=== PATIENT | female | born 1935 | race African-American/Black ===

== ENCOUNTER 2017-06-21 12:11 | Inpatient (IN) | payer MEDICARE, MEDICAID ==
[2017-06-21 13:08] LABS: #Monocytes 1.3 thou/uL (0.11-0.59); #Neutrophils 13.7 thou/uL (1.40-6.50); %Basophils 0.1 % (0.0-1.0); %Eosinophils 0.3 % (0.0-10.0); %Lymphocytes 11.7 % (21.0-51.0); %Monocytes 7.4 % (0.0-10.0); Hematocrit 33.8 % (36.0-47.0); Mean Platelet Volume 6.9 fL (7.4-10.4); Red Blood Cell (RBC) Count 3.42 mill/uL (4.20-5.40)
[2017-06-21 13:30] LABS: Lactic Acid - Sepsis 1.8 mmol/L (0.5-2.2)
[2017-06-21 13:34] LABS: Troponin I 0.051 ng/mL (< 0.028)
[2017-06-21 13:35] LABS: ALT (SGPT) 17 U/L (8-55); AST (SGOT) 43 U/L (5-34); Alkaline Phosphatase 129 U/L (40-150); Anion Gap 14 mmol/L (10-20); BUN (Urea Nitrogen) 42 mg/dL (9.8-20.1); Bilirubin, Total 0.8 mg/dL (0.2-1.2); Calc. Creatinine Clearance 0 mL/min (70-130); Calcium 8.9 mg/dL (7.8-10.44); Carbon Dioxide 25 mmol/L (23-31); Chloride 96 mmol/L (98-107); Estimated GFR-MDRD 21; Globulin 5.2 g/dL (2.4-3.5); Protein, Total 7.5 g/dL (6.0-8.3)
--- NOTE | 2017-06-21 13:54 | CT ---
CT BRAIN WITHOUT CONTRAST: History: Pain all over from sores, altered mental status. FINDINGS: No acute intracranial infarct or hemorrhage. No midline shift or mass effect. Ventricular size and e xtraaxial CSF spaces are similar. Moderate atrophy. Old right lacunar infarct extending into the arias radiata also involving the pos terior limb of the adrenal capsule and external capsule. IMPRESSION: 1. No acute intracranial abnormality. No significant change. POS: OFF
[2017-06-21 14:10] LABS: Bilirubin Small (Negative); Blood, Urine Large (Negative); Glucose, Urine (Dipstick) Negative (Negative); Ketone, Urine Negative (Negative); Nitrite Negative (Negative); Protein, Urine (Dipstick) 30 mg/dL (Neg-Trace); Urobilinogen 0.2 mg/dL (0.2-1.0)
[2017-06-21 14:26] LABS: Bacteria/HPF 1+ HPF (None Seen); Hyaline Casts/LPF NONE SEEN LPF (0-3 Hyaline); Yeast-All Forms 1+ HPF (None Seen)
[2017-06-21] MEDS ORDERED: Sodium Chloride 0.9% 100 ML ONE ×2 (14:59→15:27)
[2017-06-21] MEDS ORDERED: cefTRIAXone\\ROCEPHIN 1 GM VIAL ONE (14:59)
[2017-06-21] MEDS ORDERED: Vancomycin HCl 500 MG VIAL ONE (15:25)
[2017-06-21] MEDS ORDERED: Vancomycin HCl 500 MG in Sodium Chloride 0.9% 100 ML IVPB SCH (15:30)
--- NOTE | 2017-06-21 16:46 | RAD ---
PORTABLE AP CHEST: Date: 06-21-17 History: Slurred speech with onset of symptoms one hour prior to arrival. Sepsis. Comparison: 03-01-16, 05-22-17 FINDINGS: Cardiac silhouette is enlarged. Pulmonary vasculature is within normal limits. Pulmonary vascular ca lcifications are seen in the thoracic aorta. There are linear densities at the right lung base which may be related to minimal scarring or atelectasis. Lungs are otherwise clear. Deformity of the left shoulder is again present with proximal humerous displaced medially and superiorly with respect to the glenoid which also demonstrates deformity. There has been no other interval change from the prio r exam. IMPRESSION: 1. No acute cardiopulmonary process. 2. Mild cardiomegaly. POS: [facility]
--- NOTE | 2017-06-21 17:10 | HP ---
PRIMARY CARE PHYSICIAN: City call admission. REASON FOR ADMISSION: Sepsis. HISTORY OF PRESENT ILLNESS: An 81-year-old -[place] female who is bedbound for 40 years who was brought to emergency room by family member for altered mental status. Family member reports th at this morning, the patient was mumbling. She was incoherent. She was not able to talk well and i t was very difficult to understand because of her somnolence and incoherent. She was also constipat ed and she was having diffuse body pain. This patient is not able to provide any focused and good history and family member also does not pro vide any focused and good history, so history is very limited. The patient is hurting everywhere in her body. When they did Cota catheter in the emergency room, patient had pus like urine came out. Routine workup showed sepsis. She was initially tachycardic, hypotensive, and blood test showed leukocytosis with left shift, acute kidney failure, demand ischem ia of myocardium. At this point, the patient is being admitted to the hospital for IV antibiotic therapy. This patient was recently admitted in our hospital on 05/22/2017 and patient was discharged to home on 05/24/2017. At that time, she was treated for sepsis and she had cellulitis and wound over abdom inal wall which was growing Pseudomonas. REVIEW OF SYSTEMS: The following complete review of systems was negative, unless otherwise mentione d in the HPI or below: Constitutional: Weight loss or gain, ability to conduct usual activities. Skin: Rash, itching. Eyes: Double vision, pain. ENT/Mouth: Nose bleeding, neck stiffness, pain, tenderness. Cardiovascular: Palpitations, dyspnea on exertion, orthopnea. Respiratory: Shortness of breath, wheezing, cough, hemoptysis, fever or night sweats. Gastrointestinal: Poor appetite, abdominal pain, heartburn, nausea, vomiting, constipation, or diar sony. Genitourinary: Urgency, frequency, dysuria, nocturia. Musculoskeletal: Pain, swelling. Neurologic/Psychiatric: Anxiety, depression. Allergy/Immunologic: Skin rash, bleeding tendency. Review of systems of system is very limited because of patient's level of alertness. PAST MEDICAL HISTORY: Degenerative disk disease, chronic atrial fibrillation, hypertension, gastroe sophageal reflux disease, moderate mitral valve regurgitation, aortic valve regurgitation, tricuspid regurgitation, hypertension. PAST SURGICAL HISTORY: Cholecystectomy, renal artery stent, breast biopsy, ERCP, papillotomy, stone removal, left hand surgery. PAST PSYCHIATRIC HISTORY: Reviewed and negative. CURRENT HOME MEDICATIONS: Warfarin 2.5 mg p.o. daily, Prinzide 20/25 one tablet p.o. daily, albuter ol nebulization p.r.n., naproxen 500 mg p.o. b.i.d., Pataday ophthalmic drops as needed, MiraLax 17 grams p.o. daily, tramadol 50 mg q.6 hourly p.r.n., Protonix 40 mg p.o. daily, Reglan 10 mg q.8 hour ly p.r.n., [place] 1 tablet q.6 hourly p.r.n. ALLERGIES: PENICILLIN, reaction is not known. FAMILY HISTORY: No strong family history of premature coronary artery disease, stroke or cancer, bu t many family members later on diagnosed with heart disease. SOCIAL HISTORY: Patient lives at home. She is nonambulatory and is mostly bedbound for 40 years. No history of tobacco, alcohol or illicit drug abuse. EMERGENCY ROOM COURSE: Patient is receiving vancomycin and meropenem. The patient also given Diflu can 100 mg, Rocephin 1 g, and IV fluid. PHYSICAL EXAMINATION: VITAL SIGNS: On arrival, blood pressure 94/48, pulse 103, respiratory rate 18, temperature 98.4, sa turation 98% on room air, weight 68 kilograms. GENERAL: Patient is currently chronically ill, no obvious acute distress. HEAD: Normocephalic, atraumatic. EYES: Pupils round, reactive to light. Extraocular muscles intact. ENT: Oropharynx within normal limits. Moist mucous membranes. No oral lesions. No pharyngeal alf thema, no exudate. NECK: Supple. Range of motion is normal. No meningeal signs of irritation. LUNGS: Clear to auscultation without any rhonchi or rales. CARDIAC: S1, S2 irregular. No murmur, no gallop, no rub. ABDOMEN: Soft. Wound is covered with a dressing. No peritoneal sign, no guarding, no rigidity, no rebound. BACK: Examination unremarkable, no CVA tenderness. EXTREMITIES: Upper extremity passive movements of all joints are normal. Lower extremities, no fany ma. Patient does have mild tenderness over left hip, no erythema, no swelling there. NEUROLOGIC: Nonfocal examination. SKIN: The patient does have multiple old raised pressure sore on the back, abdomen, and buttocks. Please see wound care team notes for detailed description. PSYCHIATRIC: Normal affect. IMAGING AND SIGNIFICANT LABORATORY DATA: 1. EKG, atrial fibrillation with rapid ventricular response, nonspecific ST-T changes. 2. CT brain based on my review, no acute intracranial process. We are going to do a chest x-ray in the emergency room. 3. CBC: WBC 17.0, hemoglobin 11.0, platelet 573. 4. BMP: Sodium 131, potassium 3.7, chloride 96, carbon dioxide 25, anion gap 14, BUN 42, creatinin e 2.58, glucose 74, calcium 8.9, lactic acid 1.8. 5. CK-MB 10.2, troponin I 0.051, AST 43, ALT 17, alkaline phosphatase 129, albumin 2.3. TSH 2.68. Urinalysis suggestive of urinary tract infection. ASSESSMENT AND PLAN/IMPRESSION: 1. Acute encephalopathy. This patient was incoherently altered at home with mumbling and not talki ng well with slurred speech. At this point, CT brain is negative for any acute intracranial process , most likely this patient's presentation is explained by underlying sepsis with acute organ dysfunc tion and metabolic encephalopathy. This patient does not need any further neurological testing. Sh david already had recently. She does not need any further neurologic testing, but will treat underlying problem with correction of metabolic factors and sepsis treatment. At this point, patient is alrea dy up to her baseline and her speech is also normal per family member. 2. Sepsis with acute organ dysfunction. This patient is meeting sepsis criteria with acute encepha lopathy, acute kidney failure, and demand ischemia of myocardium. In this way, she meets sepsis wit h acute organ dysfunction. Source of infection is decubitus ulcer as well as urinary tract infectio n. Patient is receiving vancomycin, meropenem and Diflucan. We will follow up on culture result. The patient is on IV fluid and we will titrate antibiotic therapy based on culture result. 3. Acute kidney failure. The patient will need IV fluid. This acute kidney failure is related wit h dehydration, nonsteroidal antiinflammatory drug use as well as underlying sepsis. We will monitor renal function. We will avoid nephrotoxic agent. We will give her antibiotic based on renal dose. 4. Demand ischemia of myocardium likely due to underlying sepsis. Patient will need 3 sets of card iac enzymes to rule out acute coronary syndrome. We will monitor on telemetry floor. 5. Hyponatremia and hypochloremia, likely due to dehydration. We will give her IV fluid and will r epeat basic metabolic panel tomorrow. 6. Chronic disease anemia. Patient will need multivitamin and nutritional supplement while in hosp ital. 7. Decubitus ulcer present on admission, variable stage. Please see wound care team note for detai led description. Patient will need nutritional support with Ensure and Aaron. The patient will nee d wound care team consultation for wound care and we will continue meropenem and vancomycin. 8. Urinary tract infection. Patient has pus drainage through the catheter. Patient is on 3 differ ent antibiotic therapies with meropenem, vancomycin, and Diflucan as a broad coverage and we will na rrow down antibiotic spectrum based on culture result. 9. Chronic atrial fibrillation, currently rate under control. The patient is on chronic anticoagul ation therapy with warfarin and we will monitor PT and INR while in hospital. 10. Aortic regurgitation, tricuspid regurgitation and mitral regurgitation, currently stable. 11. Bedbound status. Patient will need supportive care. 12. Deep venous thrombosis prophylaxis. Patient is already on warfarin therapy. 13. Gastrointestinal prophylaxis, Protonix 40 mg p.o. daily. 14. Hypertension. The patient was hypotensive and that is why we will hold on antihypertensive med ication today. 15. Deep venous thrombosis prophylaxis not needed because the patient is on warfarin therapy. 16. Gastrointestinal prophylaxis. Patient is already on Protonix therapy. 17. Code status: The patient is FULL CODE. Patient's daughter is surrogate decision maker. Disposition plan based on clinical course. We are expecting patient's stay in hospital more than 2 midnights. The patient may need placement, her prognosis is poor.
[2017-06-21] MEDS ORDERED: Ondansetron HCl/PF 4 MG/2 ML Vial IVP PRN ×2 (17:54→18:01)
[2017-06-21] MEDS ORDERED: Ondansetron ODT 4 MG TAB SL PRN (17:54)
[2017-06-21] MEDS ORDERED: Acetaminophen 325 MG TAB PO PRN (17:54)
[2017-06-21] MEDS ORDERED: Fleet Enema 133 ML BOT PR PRN (18:01)
[2017-06-21] MEDS ORDERED: Eucerin (Mineral Oil/Petrolatum,White) 30 gm Jar TOP PRN (18:01)
[2017-06-21] MEDS ORDERED: Ondansetron ODT 4 MG TAB PO PRN (18:01)
[2017-06-21] MEDS ORDERED: Senokot 8.6 MG TAB PO PRN (18:01)
[2017-06-21] MEDS ORDERED: Diabetic Tussin 200 MG/10 ML UDCUP PO PRN (18:01)
[2017-06-21] MEDS ORDERED: Warfarin Sodium 2.5 MG TAB PO SCH (18:01)
[2017-06-21] MEDS ORDERED: Mag-Al 1200 mg/1200 mg/30 ML UDCUP PO PRN (18:01)
[2017-06-21] MEDS ORDERED: Bisacodyl 10 MG SUPP PR PRN (18:01)
[2017-06-21] MEDS ORDERED: Sodium Chloride 0.65% Nasal 44 ML BOT EA NARE PRN (18:01)
[2017-06-21] MEDS ORDERED: Artificial Tear Sol 15 ML BOT EA EYE PRN (18:01)
[2017-06-21] MEDS ORDERED: Milk Of Magnesia 30 ML UDCUP PO PRN (18:01)
[2017-06-21] MEDS ORDERED: Loratadine 10 MG TAB PO PRN (18:01)
[2017-06-21] MEDS ORDERED: Loperamide HCl 2 MG CAP PO PRN (18:01)
[2017-06-21 18:48] LABS: Prothrombin Time 49.9 SEC (12.0-14.7)
[2017-06-21] MEDS ORDERED: Phytonadione 5 MG in Sodium Chloride 0.9% 50 ML IVPB SCH (19:30)
[2017-06-21] MEDS ORDERED: WARFARIN PO PRN (19:37)
[2017-06-21 21:23] LABS: Troponin I 0.044 ng/mL (< 0.028)
[2017-06-21] MEDS: Sodium Chloride 0.9% 1,000 ML IV SCH (21:37)
[2017-06-21] MEDS: Vancomycin HCl 750 MG in Sodium Chloride 0.9% 250 ML 250 ML IVPB SCH (21:38)
[2017-06-22 01:06] LABS: Troponin I 0.048 ng/mL (< 0.028)
[2017-06-22 01:19] LABS: Critical Call CKMBM 0
[2017-06-22] MEDS: Meropenem 500 MG in Sodium Chloride 0.9% 100 ML IVPB SCH ×3 (01:38→17:07)
[2017-06-22] MEDS: Sodium Chloride 0.9% 1,000 ML IV SCH (05:40)
[2017-06-22 06:10] LABS: #Eosinphils 0.1 thou/uL (0.0-0.7); #Lymphocytes 1.2 thou/uL (1.20-3.40); %Basophils 0.1 % (0.0-1.0); %Eosinophils 0.5 % (0.0-10.0); %Lymphocytes 9.8 % (21.0-51.0); %Monocytes 7.9 % (0.0-10.0); Mean Platelet Volume 6.8 fL (7.4-10.4); White Blood Cell (WBC) Count 12.2 thou/uL (4.8-10.8)
[2017-06-22 06:16] LABS: Prothrombin Time 23.8 SEC (12.0-14.7)
[2017-06-22 06:22] LABS: ALT (SGPT) 15 U/L (8-55); AST (SGOT) 43 U/L (5-34); Alkaline Phosphatase 118 U/L (40-150); Anion Gap 15 mmol/L (10-20); BUN (Urea Nitrogen) 39 mg/dL (9.8-20.1); Bilirubin, Total 0.8 mg/dL (0.2-1.2); Calc. Creatinine Clearance 24 mL/min (70-130); Calcium 8.2 mg/dL (7.8-10.44); Carbon Dioxide 21 mmol/L (23-31); Chloride 102 mmol/L (98-107); Estimated GFR-MDRD 27; Globulin 4.6 g/dL (2.4-3.5); Protein, Total 6.5 g/dL (6.0-8.3)
[2017-06-22] MEDS ORDERED: Dextrose 50% Abboject 50 ML SYRINGE ONE (07:55)
[2017-06-22] MEDS ORDERED: WARFARIN PO PRN (08:22)
[2017-06-22] MEDS: Saccharomyces boulardii 250 MG CAP PO SCH (08:52)
[2017-06-22] MEDS ORDERED: FLU VACC TS2017-18 (>65YR) 0.5 ML SYRINGE IM ONE (09:00)
[2017-06-22] MEDS: Dextrose 5 % And 0.9 % NaCl 1,000 ML IV SCH ×2 (09:36→22:00)
[2017-06-22] MEDS: Fluconazole In NaCl,Iso-Osm 100 MG in Premix Bag 1 BAG IVPB SCH ×2 (09:37)
--- NOTE | 2017-06-22 12:36 | PDOC.PN ---
- Subjective Encounter Start Date: 06/22/17 Encounter Start Time: 12:34 more alert follows command no cp/sob no f/c - Objective Resuscitation Status: Resuscitation Status FULL:Full Resuscitation MAR Reviewed: Yes Vital Signs & Weight: Vital Signs (12 hours) Temp Pulse Resp BP Pulse Ox 06/22/17 12:00 97.9 F 99 18 137/55 L 06/22/17 08:00 98 F 121 H 18 95/52 L 95 06/22/17 04:00 97.2 F L 89 18 128/56 L 100 Weight Weight 167 lb 6 oz I&O: 06/21/17 06/22/17 06/23/17 06:59 06:59 06:59 Intake Total 1355 Output Total 400 Balance 955 Result Diagrams: 06/22/17 05:55 06/22/17 07:50 Additional Labs: Accuchecks 06/22/17 06/22/17 08:26 07:27 POC Glucose 87 39 L* Phys Exam - Physical Examination Constitutional: NAD HEENT: PERRLA Neck: no JVD Respiratory: no rales decreased bs at bases Cardiovascular: no significant murmur Gastrointestinal: soft, non-tender Musculoskeletal: pulses present Neurological: normal sensation Psychiatric: A&O x 3 Deviation from normal: multiple excoriation and ulcer on the sacral area Dx/Plan (1) Sepsis Code(s): A41.9 - SEPSIS, UNSPECIFIED ORGANISM Status: Acute Qualifiers: Comment: HR now normal, BP normal, no lactic acid or Bcx sent form ER (2) Decubital ulcer Code(s): L89.90 - PRESSURE ULCER OF UNSPECIFIED SITE, UNSPECIFIED STAGE Status : Acute (3) Protein-calorie malnutrition, moderate Code(s): E44.0 - MODERATE PROTEIN-CALORIE MALNUTRITION Status: Acute (4) Ventricular tachyarrhythmia Code(s): I47.2 - VENTRICULAR TACHYCARDIA Status: Acute (5) Elevated troponin Code(s): R74.8 - ABNORMAL LEVELS OF OTHER SERUM ENZYMES Status: Acute (6) Renal failure (ARF), acute on chronic Code(s): N17.9 - ACUTE KIDNEY FAILURE, UNSPECIFIED; N18.9 - CHRONIC KIDNEY DISEASE, UNSPECIFIED Status: Acute (7) Hyponatremia Code(s): E87.1 - HYPO-OSMOLALITY AND HYPONATREMIA Status: Acute (8) Physical deconditioning Code(s): R53.81 - OTHER MALAISE Status: Acute (9) UTI (urinary tract infection) Status: Acute (10) Chronic atrial fibrillation Code(s): I48.2 - CHRONIC ATRIAL FIBRILLATION Status: Chronic Comment: Rate controlled (11) HTN (hypertension) Code(s): I10 - ESSENTIAL (PRIMARY) HYPERTENSION Status: Chronic Qualifiers: Comment: Stable (12) Hypoglycemia Code(s): E16.2 - HYPOGLYCEMIA, UNSPECIFIED Status: Acute (13) Coagulopathy Status: Acute (14) Afib Code(s): I48.91 - UNSPECIFIED ATRIAL FIBRILLATION Status: Acute Comment: rate controlled on anticoag - Plan * f/u culture * wound care * case mx for placement * cont abx * f/u card recommendation * cont d5ns for today * monitor glucose and inr
[2017-06-22] MEDS ORDERED: Potassium Chloride 20 MEQ TAB PO SCH (14:15)
[2017-06-22] MEDS ORDERED: Potassium Chloride 10 MEQ TAB PO SCH (14:15)
[2017-06-22] MEDS: Warfarin Sodium 1.5 MG TAB PO SCH (18:14)
--- NOTE | 2017-06-22 19:00 | CT ---
ABDOMEN AND PELVIC CT SCAN WITHOUT IV CONTRAST 06/22/17 HISTORY: 81-year-old female with abdominal pain. COMPARISON: 05/22/17. FINDINGS: Abdomen and pelvic CT scan without IV contrast is performed. There is some minimal bilateral pleural thickening and/or pleural effusion changes, greater on the l eft side with some patchy parenchymal changes which has more of a chronic appearance. Moderate sized hiatal hernia. There is considerable artifact associated with the scan in part related to some jfery on as well as the patient's arms overlying the abdomen. Patient appears to be status post cholecyste ctomy with mildly dilated common bile duct but no evidence for intrahepatic ductal dilatation. Pancr eas and spleen appear unremarkable. Bilateral renal hypodensities, evidence for bilateral cysts up t o approximately 2.5 cm. No evidence for bowel obstruction or abscess. Again noted is an open wound o verlying the left inferolateral abdomen without evidence for an associated abnormal fluid collection . There is some minimal generalized subcutaneous fat stranding. There appears to be very severe musc le volume loss and fatty replacement of the iliopsoas muscles and the gluteal muscles and proximal t high musculature. Moderate gas and fecal material throughout the colon including a fecal filled dila jonel rectum without significant abnormal rectal wall thickening or perirectal fat stranding. Unremark able uterus and adnexal regions. Normal appearing partially visualized pancreas. IMPRESSION: No significant acute process in the abdomen or pelvis. Left lower abdominal wound which is stable fr om 05/22/17. Minimal pleural effusion changes worse on the left side. Moderate sized hiatal hernia. Ot her findings as above. POS: [facility]
[2017-06-22 19:55] LABS: Troponin I 0.036 ng/mL (< 0.028)
--- NOTE | 2017-06-22 20:17 | CON ---
DATE OF CONSULTATION: 06/22/2017 HISTORY OF PRESENT ILLNESS: Mirna Briceño is an 81-year-old black female admitted with altered mental status and sepsis. She has been evaluated by Dr. Valentin in the past in 12/2015. At that time, she had chest discomfort as well as a minimally elevated troponin I. She underwent Cardiolite testing, which revealed no evidence of ischemia. Also, echocardiogram revealed ejection fraction of 50-55% with aortic valvular sclerosis, moderate aortic insufficiency , moderate tricuspid regurgitation, and moderate mitral regurgitation. On 05/22, she was admitted with syncope and was found to be septic with cellulitis of the abdominal wall and was treated with antibiotics. Yesterday, she was found to be minimally responsive by her daughter with altered mental status. She denies any chest discomfort or shortness of breath to me. She denies any palpitations. She has been found to have an episode of nonsustained ventricular tachycardia and Cardiology consultation is requested. PAST MEDICAL HISTORY: The patient has been bedridden for approximately 40 years due to pain in her legs with walking. It is unclear to me exactly why that was. She has chronic atrial fibrillation, hypertension, GERD. PAST SURGICAL HISTORY: Include cholecystectomy, renal artery stent, breast biopsy, ERCP with stone removal and left hand surgery. MEDICATIONS: Include warfarin 2.5 daily, Prinzide 20/25 daily, albuterol nebs p.r.n., Naprosyn 500 mg b.i.d., Pataday ophthalmic drops, MiraLax, tramadol 50 q.6 hours p.r.n., Protonix 40 mg daily, Reglan 10 mg q.8 hours and [place] p.r.n. ALLERGIES: PENICILLIN. SOCIAL HISTORY: She has been bed bound for 40 years as described above. She smoked in the past. FAMILY HISTORY: Negative for coronary artery disease. Her daughter does have severe cardiomyopathy. REVIEW OF SYSTEMS: Twelve-point review of systems otherwise unremarkable. PHYSICAL EXAMINATION: VITAL SIGNS: 137/55, pulse is 99 and irregularly irregular. HEENT: PERRL. NECK: Supple. CHEST: Clear. CARDIAC: S1 and S2 are normal without any S3, S4 or murmurs. ABDOMEN: Normal bowel sounds. EXTREMITIES: Revealed no clubbing, cyanosis or edema. She does have some contractures of her ankles. NEUROLOGIC: Grossly intact. SKIN: Warm and dry. LABORATORY DATA: EKG revealed atrial fibrillation with rapid ventricular response, left axis deviation, nonspecific ST and T-wave changes. Hemoglobin 10.3, hematocrit 33.0, white count 12,200, platelets 415,000. INR was 5.1 yesterday and 2.0 today. Sodium 135, potassium 3.4, chloride 102, carbon dioxide 21, BUN 39, creatinine 2.58 on admission (05/24, her creatinine was 1.02 ), glucose 41. CK 579 with a CK-MB of 14.4 and regular. Troponin I 0.051. IMPRESSION: 1. Nonsustained ventricular tachycardia. 2. The patient has chronically elevated troponin I in looking back over the years. She now has acute kidney injury and this probably represents demand ischemia. Her CK-MB percent is less than 3. 3. Normal Cardiolite in 12/2015. 4. Acute encephalopathy, which appears improved today. 5. Sepsis. 6. Probable urinary tract infection. 7. Acute kidney injury. 8. Anemia. 9. Decubitus ulcer as well as infection in the anterior abdominal wall. 10. Chronic atrial fibrillation. 11. Bedbound for 40 years. 12. Hypertension. PLAN: Echocardiogram will be performed to reassess left ventricular function. Potassium will be replaced. The patient is being gently hydrated. She also is on broad spectrum antibiotics. Cultures thus far have been negative. [facility]
--- NOTE | 2017-06-22 20:53 | CON ---
DATE OF CONSULTATION: 06/22/2017 REASON FOR CONSULTATION: Sepsis with abdominal wound and possible urinary tract infection. HISTORY OF PRESENT ILLNESS: An 81-year-old who has a history of severe mobility impairment which ap pears to be related to chronic joint disease, previous severe obesity with eventual deconditioning. The patient has been in bed-bound state for the past 40 years leaving with various relatives. The patient had been recently admitted to [facility] twice in 2015 with chest pain and diarrh ea, episode of gastroenteritis and in May, she was admitted after a syncopal event and also wi th chronic abdominal wall wound. This time, she was brought in because of altered mental status. R eportedly, the patient was mumbling unintelligible sounds, was incoherent and on arrival, she had pa in, diffusely distributed. The patient usually voids spontaneously in diapers and on arrival had a Cota catheter inserted with thick yellow urine drainage. On arrival, she was tachycardic and hypot ensive with leukocytosis and left shift with acute renal insufficiency, started on IV fluids and bro ad spectrum antimicrobial coverage. The daughter has noticed that the abdominal wound which has bee n present for the past 8 months has worsened, it is actually wider with worse appearance than previo usly noted. Initial findings in the exam showed blood pressure 94/48, pulse 103, respiratory rate 1 8, temperature 98.4, and saturation 98%. The patient appeared chronically ill. Neck was supple. L ungs were clear. Heart exam with irregular rate. Abdomen, covered wound which was not uncovered in itially. The initial laboratory data with sodium 131, creatinine 2.58 which is higher than her base line and transaminases with an AST 43, ALT 17, albumin 2.3, troponin 0.051. INR was 5.1 and 2.0. U rinalysis with greater than 50 WBCs. The patient has been given Diflucan and meropenem as well as v ancomycin. Currently, Ms. Briceño is awake. She is more coherent and the speech has improved and i s almost back to baseline. No headaches. No dyspnea. She has moderate abdominal tenderness around the site of the wound. Cota catheter has been inserted. She has had formed stool. No evidence o f aspiration. No seizure activity. PAST MEDICAL HISTORY: Severe mobility impairment with chronic arthritis and severe ankylosis, bed-b ound state for the past many decades, marked weight loss for the past few years, atrial fibrillation on warfarin, hypertension, GERD, mitral valve regurgitation, and aortic valve insufficiency. PAST SURGICAL HISTORY: Cholecystectomy, renal artery stent, breast biopsy, ERCP, papillotomy, and s tone removal. MEDICATIONS: Warfarin, Prinzide, albuterol, naproxen, Pataday eye drops, MiraLax, tramadol, Protoni x, Reglan, and [place]. ALLERGIES: PENICILLIN, unknown reaction. FAMILY HISTORY: Noncontributory. SOCIAL HISTORY: Lives with daughter and she is mostly bedridden for the past many decades. PHYSICAL EXAMINATION: VITAL SIGNS: Since admission showed essentially normal temperature, blood pressure 130/55, pulse 99 , respirations 18, and O2 sat 95%. SKIN: Shows multiple areas of shallow ulcerations in dependent areas of the skin, particularly in t he gluteal region. She also has ulcerations in the breast. The biggest ulcer or largest ulcer is i n the left lower abdomen, panniculus, it is an oval shaped ulcer with about 4-5 cm in length and by 3 cm in width. The depth is about 0.8 cm. The patient has a peripheral IV access and a Cota morenita ter and no lymphadenopathy. HEENT: Ocular movements are conjugate. Sclerae are white. Pupils are 1 mm and reactive. Conjunct ivae are normal. Nasal passages patent. Oral cavity with only 2 or 3 left havasupai teeth with marked gum resorption and periodontitis: Oral cavity is somewhat dry. NECK: Stiff to all directions. No jugular venous distention. LUNGS: With symmetric breath sounds without obvious crackles or wheezing. HEART: The apex impulse is not palpable. S1, S2, irregular rate, without obvious murmurs. No S3. ABDOMEN: With prominent panniculus, no tenderness, no organomegaly, no ascites. She has severe ank ylosis of many joints, particularly in the knees and ankles, also small joints of upper and lower ex tremities, no obvious inflammatory activity noticeable at this time. Pulses are faintly palpable in dorsalis pedis. She is able to move faintly the toes and she is able to move the hands. There is no focal weakness. She is awake, knows her name and recognizes relatives. She knows she is in the hospital, but could not tell me the date. LABORATORY AND X-RAY FINDINGS: White cell count 17,000 down to 12, hemoglobin 11 and now 10, MCV 10 0, platelet count down to 415 with 81% neutrophils. INR 5.1 and is now 2.0. The latest chemistry: Sodium 135, potassium 3.4, creatinine 2.13, glucose 41, AST 43. Transaminases otherwise normal and alkaline phosphatase 118. Troponin is at 0.048, albumin 1.9, globulin 4.6. Urinalysis with greate r than 50 WBCs, protein of 30 and RBCs of 4-6. Chest x-ray with no infiltrates or cardiomegaly note d which is mild. Brain CT with no acute intracranial abnormality. She had rheumatoid factor in the past which was positive 1-64 and citric cyclic citrullinated peptide greater than 250 units. ASSESSMENT: 1. 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 2. Chronic ulceration for 8 months now without any improvement despite antimicrobial therapy and wo und care management in nonweightbearing segment of the body. 3. Multiple shallow ulcerations secondary to weight bearing pressure in the dependent areas of the body. 4. Abnormal urinalysis with negative cultures thus for. 5. Neutrophilia with hypotension. DISCUSSION: Differential diagnosis includes an invasive urinary tract infection with pyelonephritis plus an additional process related to the ulcerations, possibly a vasculitis associated with rheuma tologic disease, another alternate possibility would be warfarin-induced skin necrosis from microvas cular occlusion. Calciphylaxis is unlikely since the patient does not have end-stage renal disease, pyoderma gangrenosum is less likely in view of the appearance of the ulcer. At this point, continu e antimicrobial therapy. Check CT stone protocol and obtain a biopsy of the margin of the ulcer to assist with the differential diagnosis.
[2017-06-23] MEDS: Meropenem 500 MG in Sodium Chloride 0.9% 100 ML IVPB SCH ×4 (00:12→23:05)
[2017-06-23 05:29] LABS: #Eosinphils 0.1 thou/uL (0.0-0.7); #Lymphocytes 1.3 thou/uL (1.20-3.40); #Monocytes 0.9 thou/uL (0.11-0.59); %Basophils 0.2 % (0.0-1.0); %Monocytes 8.3 % (0.0-10.0); Hematocrit 34.5 % (36.0-47.0); Red Blood Cell (RBC) Count 3.47 mill/uL (4.20-5.40); White Blood Cell (WBC) Count 10.4 thou/uL (4.8-10.8)
[2017-06-23 05:55] LABS: Anion Gap 10 mmol/L (10-20); BUN (Urea Nitrogen) 31 mg/dL (9.8-20.1); BUN/Creatinine Ratio 21.68; Calc. Creatinine Clearance 36 mL/min (70-130); Calcium 8.5 mg/dL (7.8-10.44); Carbon Dioxide 21 mmol/L (23-31); Chloride 104 mmol/L (98-107); Estimated GFR-MDRD 42; Phosphorus 2.1 mg/dL (2.3-4.7)
[2017-06-23] MEDS: Saccharomyces boulardii 250 MG CAP PO SCH (08:24)
[2017-06-23] MEDS: Acetaminophen 325 MG TAB PO PRN ×2 (08:24→14:12)
[2017-06-23 10:09] LABS: Prothrombin Time 22.3 SEC (12.0-14.7)
[2017-06-23] MEDS: Fluconazole In NaCl,Iso-Osm 100 MG in Premix Bag 1 BAG IVPB SCH ×2 (10:24)
[2017-06-23] MEDS: Dextrose 5 % And 0.9 % NaCl 1,000 ML IV SCH (11:22)
--- NOTE | 2017-06-23 13:18 | PDOC.PN ---
- Subjective Encounter Start Date: 06/23/17 Encounter Start Time: 13:16 Patient seen and examined. No new complaints. No overnight events - Objective Resuscitation Status: Resuscitation Status FULL:Full Resuscitation MAR Reviewed: Yes Vital Signs & Weight: Vital Signs (12 hours) Temp Pulse Pulse Resp BP BP Pulse Ox 06/23/17 10:22 106 H 120/58 L 06/23/17 09:02 97.7 F 64 18 06/23/17 08:05 97.7 F 64 18 118/57 L 95 06/23/17 04:00 98.3 F 97 18 146/61 H 100 Weight Admit Weight 167 lb 6 oz Weight 167 lb I&O: 06/22/17 06/23/17 06/24/17 06:59 06:59 06:59 Intake Total 1355 3031 Output Total 400 1300 Balance 955 1731 Result Diagrams: 06/23/17 04:50 06/23/17 04:50 Additional Labs: Accuchecks 06/23/17 06/23/17 06/23/17 12:05 05:52 00:18 POC Glucose 112 H 105 89 06/22/17 18:00 POC Glucose 121 H Phys Exam - Physical Examination Constitutional: NAD HEENT: PERRLA Neck: no JVD Respiratory: no wheezing Cardiovascular: RRR Gastrointestinal: soft Musculoskeletal: pulses present Neurological: moves all 4 limbs Deviation from normal: several excoriation on trunk , decubitus ulcer in sacram noted Dx/Plan (1) Sepsis Code(s): A41.9 - SEPSIS, UNSPECIFIED ORGANISM Status: Acute Qualifiers: Comment: HR now normal, BP normal now (2) Decubital ulcer Code(s): L89.90 - PRESSURE ULCER OF UNSPECIFIED SITE, UNSPECIFIED STAGE Status : Acute (3) Protein-calorie malnutrition, moderate Code(s): E44.0 - MODERATE PROTEIN-CALORIE MALNUTRITION Status: Acute (4) Ventricular tachyarrhythmia Code(s): I47.2 - VENTRICULAR TACHYCARDIA Status: Acute (5) Elevated troponin Code(s): R74.8 - ABNORMAL LEVELS OF OTHER SERUM ENZYMES Status: Acute (6) Renal failure (ARF), acute on chronic Code(s): N17.9 - ACUTE KIDNEY FAILURE, UNSPECIFIED; N18.9 - CHRONIC KIDNEY DISEASE, UNSPECIFIED Status: Acute (7) Hyponatremia Code(s): E87.1 - HYPO-OSMOLALITY AND HYPONATREMIA Status: Acute (8) Physical deconditioning Code(s): R53.81 - OTHER MALAISE Status: Acute (9) UTI (urinary tract infection) Status: Acute Comment: ur cul shows yeast (10) HTN (hypertension) Code(s): I10 - ESSENTIAL (PRIMARY) HYPERTENSION Status: Chronic Qualifiers: Comment: Stable (11) Hypoglycemia Code(s): E16.2 - HYPOGLYCEMIA, UNSPECIFIED Status: Acute (12) Coagulopathy Status: Acute (13) Afib Code(s): I48.91 - UNSPECIFIED ATRIAL FIBRILLATION Status: Acute Comment: rate controlled on anticoag - Plan * cont abx * f/u dr trejo plan * placement
[2017-06-23] MEDS: Lidocaine 1% (PF) 30 ML VIAL ONE ×2 (14:13→14:19)
--- NOTE | 2017-06-23 15:31 | PRG ---
DATE OF SERVICE: 06/23/2017 SUBJECTIVE: Ms. Briceño is overall stable. No current symptoms. She did have a wide complex tachy cardia. Her LVA was normal in the past. OBJECTIVE: VITAL SIGNS: Blood pressure 120/58, pulse 64, temperature 97.7. LUNGS: Clear to auscultation. HEART: Irregularly irregular. ABDOMEN: Soft, nontender, nondistended. EXTREMITIES: No edema. PERTINENT LABORATORY: Hemoglobin 10.9, creatinine 1.43 with a GFR 42. IMPRESSION: 1. Wide complex tachycardia. 2. Atrial fibrillation. 3. Sepsis. 4. Dementia. RECOMMENDATION: At this time, we will continue conservative therapy. She is currently on Coumadin, will continue. Her wide complex tachycardia may be related to her atrial fibrillation. I would re check her echo to assess LV function.
[2017-06-23] MEDS: Warfarin Sodium 1.5 MG TAB PO SCH (17:37)
[2017-06-23] MEDS: Vancomycin HCl 750 MG in Sodium Chloride 0.9% 250 ML 250 ML IVPB SCH (21:01)
[2017-06-24] MEDS: Dextrose 5 % And 0.9 % NaCl 1,000 ML IV SCH ×2 (01:42→19:48)
[2017-06-24 05:54] LABS: #Eosinphils 0.1 thou/uL (0.0-0.7); #Lymphocytes 1.8 thou/uL (1.20-3.40); #Monocytes 0.8 thou/uL (0.11-0.59); #Neutrophils 7.5 thou/uL (1.40-6.50); %Basophils 0.2 % (0.0-1.0); %Eosinophils 0.7 % (0.0-10.0); %Lymphocytes 17.3 % (21.0-51.0); %Monocytes 8.2 % (0.0-10.0); Hematocrit 28.2 % (36.0-47.0); Mean Platelet Volume 6.8 fL (7.4-10.4); Red Blood Cell (RBC) Count 2.82 mill/uL (4.20-5.40); White Blood Cell (WBC) Count 10.1 thou/uL (4.8-10.8)
[2017-06-24 05:57] LABS: Prothrombin Time 31.3 SEC (12.0-14.7)
[2017-06-24 06:51] LABS: Anion Gap 7 mmol/L (10-20); BUN (Urea Nitrogen) 25 mg/dL (9.8-20.1); BUN/Creatinine Ratio 27.47; Calc. Creatinine Clearance 57 mL/min (70-130); Carbon Dioxide 23 mmol/L (23-31); Chloride 108 mmol/L (98-107); Estimated GFR-MDRD 71; Phosphorus 1.4 mg/dL (2.3-4.7)
--- NOTE | 2017-06-24 09:22 | PRG ---
DATE OF SERVICE: 06/24/2017 SUBJECTIVE: No significant changes noted overnight. She appears comfortable and resting. Her fami ly is at her bedside. PHYSICAL EXAMINATION: VITAL SIGNS: Blood pressure 130/59, pulse 82, temperature 98.4. LUNGS: Clear to auscultation. HEART: Irregularly irregular. ABDOMEN: Soft, nontender, and nondistended. EXTREMITIES: No edema. PERTINENT LABORATORY DATA: Hemoglobin 9.1 and creatinine 0.9. IMPRESSION: 1. Wide complex tachycardia. 2. Atrial fibrillation. 3. Sepsis. RECOMMENDATIONS: At this point, we do not have any further new recommendations. She is currently o n Coumadin and will continue it. We will also recommend continuing antibiotic therapy as prescribed . At this point, no rate control medicines are needed given appropriate rate. Echo is pending and we will review.
[2017-06-24] MEDS: Meropenem 500 MG in Sodium Chloride 0.9% 100 ML IVPB SCH (09:46)
[2017-06-24] MEDS: Fluconazole In NaCl,Iso-Osm 100 MG in Premix Bag 1 BAG IVPB SCH ×2 (09:49)
[2017-06-24] MEDS: Saccharomyces boulardii 250 MG CAP PO SCH (09:51)
--- NOTE | 2017-06-24 11:57 | PDOC.PN ---
- Subjective Encounter Start Date: 06/24/17 Encounter Start Time: 11:11 Patient seen and examined. No new complaints. No overnight events - Objective Resuscitation Status: Resuscitation Status FULL:Full Resuscitation MAR Reviewed: Yes Vital Signs & Weight: Vital Signs (12 hours) Temp Pulse Pulse Pulse Resp BP BP 06/24/17 09:19 122 H 111 H 131/81 120/64 06/24/17 03:45 98.4 F 82 18 06/24/17 03:18 BP Pulse Ox 06/24/17 09:19 06/24/17 03:45 122/59 L 99 06/24/17 03:18 99 Weight Admit Weight 167 lb 6 oz Weight 169 lb I&O: 06/23/17 06/24/17 06/25/17 06:59 06:59 06:59 Intake Total 3031 1920 Output Total 1300 1150 Balance 1731 770 Result Diagrams: 06/24/17 05:38 06/24/17 05:38 Additional Labs: Accuchecks 06/23/17 06/23/17 06/23/17 23:37 18:18 12:05 POC Glucose 102 92 112 H Phys Exam - Physical Examination Constitutional: NAD HEENT: PERRLA Neck: no JVD Respiratory: no wheezing Cardiovascular: no significant murmur Gastrointestinal: non-tender Musculoskeletal: pulses present Neurological: normal sensation Psychiatric: A&O x 3 Deviation from normal: ulcerations noted Dx/Plan (1) Sepsis Code(s): A41.9 - SEPSIS, UNSPECIFIED ORGANISM Status: Acute Qualifiers: Comment: HR now normal, BP normal now (2) Decubital ulcer Code(s): L89.90 - PRESSURE ULCER OF UNSPECIFIED SITE, UNSPECIFIED STAGE Status : Acute (3) Protein-calorie malnutrition, moderate Code(s): E44.0 - MODERATE PROTEIN-CALORIE MALNUTRITION Status: Acute (4) Ventricular tachyarrhythmia Code(s): I47.2 - VENTRICULAR TACHYCARDIA Status: Acute (5) Elevated troponin Code(s): R74.8 - ABNORMAL LEVELS OF OTHER SERUM ENZYMES Status: Acute (6) Renal failure (ARF), acute on chronic Code(s): N17.9 - ACUTE KIDNEY FAILURE, UNSPECIFIED; N18.9 - CHRONIC KIDNEY DISEASE, UNSPECIFIED Status: Acute (7) Hyponatremia Code(s): E87.1 - HYPO-OSMOLALITY AND HYPONATREMIA Status: Acute (8) Physical deconditioning Code(s): R53.81 - OTHER MALAISE Status: Acute (9) UTI (urinary tract infection) Status: Acute Comment: ur cul shows yeast (10) HTN (hypertension) Code(s): I10 - ESSENTIAL (PRIMARY) HYPERTENSION Status: Chronic Qualifiers: Comment: Stable (11) Hypoglycemia Code(s): E16.2 - HYPOGLYCEMIA, UNSPECIFIED Status: Acute (12) Coagulopathy Status: Acute (13) Afib Code(s): I48.91 - UNSPECIFIED ATRIAL FIBRILLATION Status: Acute Comment: rate controlled on anticoag - Plan * cont current treatment * f/u dr trejo plan * case mx to help with placement
[2017-06-24] MEDS ORDERED: Potassium Phosphate 30 MMOL in Sodium Chloride 0.9% 500 ML IVPB SCH (12:00)
[2017-06-24] MEDS: Acetaminophen 325 MG TAB PO PRN (14:12)
--- NOTE | 2017-06-24 18:29 | PRG ---
DATE OF SERVICE: 06/24/2017 Ms. Briceño is a patient well known to me from previous admissions. I saw her in the clinic about 2 weeks ago and at that point she had some new masses in her left breast. I was initially concerned that these were malignant although they did not have a suspicious appearance on ultrasound, appearing just to be fatty tissue that was indurated. I did biopsies of 2 of these lesions and it just came back as inflamed fatty tissue. There was no malignancy seen and I now believe that these were evolving fat necrosis masses. The patient has been readmitted to the hospital with urosepsis and is improving from this. Her abdominal wound was pretty clean when I saw it 2 weeks ago, but yesterday had a new area of necrosis, especially inferiorly, when I saw her with the wound care team, so some necrotic skin and fatty tissue were sharply excised. Dr. Langford had requested a skin biopsy so that was done as well. Today, the wound is wallpaper cleaner, but it does have some odor, so we are going to do Dakin solution wet to dry dressings daily. Once it cleans up, I anticipate that the patient will require a VAC dressing to help this heal in. The upper part of the wound is slowly beginning to granulate. The masses in her left breast have become confluent and the skin over it has become ischemic in appearance and I believe that this is evolving fat necrosis with impingement of the blood supply to the skin. She will likely progress to full-thickness skin loss, but there is no indication for debridement at this time and we are doing conservative management and trying to avoid any further injury to the breast. The patient's family is appropriately concerned and caring and she herself is nonambulatory and has not had any recent falls or injuries that she can relate. I believe this may have been due to trauma, due to her lying with her breast under her body, and I wonder if the wound on her abdomen may have been through a similar mechanism of minor trauma followed by fat necrosis and eventual skin ischemia. The wound care team is going to continue to manage her conservatively. I am going to be gone for the next week, but if any surgical intervention is necessary, they are going to call one of my partners. I will see her back in my clinic as an outpatient after she is discharged home. OSIEL
[2017-06-24] MEDS: K-Phos Neutral 250 MG TAB PO SCH (20:47)
[2017-06-25 05:11] LABS: #Eosinphils 0.1 thou/uL (0.0-0.7); #Lymphocytes 1.9 thou/uL (1.20-3.40); #Monocytes 0.7 thou/uL (0.11-0.59); #Neutrophils 7.1 thou/uL (1.40-6.50); %Basophils 0.2 % (0.0-1.0); %Eosinophils 0.8 % (0.0-10.0); %Lymphocytes 19.6 % (21.0-51.0); %Monocytes 7.1 % (0.0-10.0); Hematocrit 29.4 % (36.0-47.0); Mean Platelet Volume 6.7 fL (7.4-10.4); Red Blood Cell (RBC) Count 2.96 mill/uL (4.20-5.40); White Blood Cell (WBC) Count 9.8 thou/uL (4.8-10.8)
[2017-06-25 05:18] LABS: Prothrombin Time 38.6 SEC (12.0-14.7)
[2017-06-25 05:33] LABS: Anion Gap 7 mmol/L (10-20); BUN (Urea Nitrogen) 20 mg/dL (9.8-20.1); BUN/Creatinine Ratio 26.32; Calc. Creatinine Clearance 67 mL/min (70-130); Calcium 7.8 mg/dL (7.8-10.44); Carbon Dioxide 24 mmol/L (23-31); Chloride 108 mmol/L (98-107); Estimated GFR-MDRD 88; Phosphorus 1.8 mg/dL (2.3-4.7)
[2017-06-25] MEDS: Acetaminophen 325 MG TAB PO PRN ×3 (05:53→23:18)
[2017-06-25] MEDS: Saccharomyces boulardii 250 MG CAP PO SCH (09:36)
[2017-06-25] MEDS: K-Phos Neutral 250 MG TAB PO SCH ×2 (09:36→21:16)
--- NOTE | 2017-06-25 10:55 | PDOC.PN ---
- Subjective Encounter Start Date: 06/25/17 Encounter Start Time: 13:25 Patient seen and examined. No new complaints. No overnight events - Objective Resuscitation Status: Resuscitation Status FULL:Full Resuscitation MAR Reviewed: Yes Vital Signs & Weight: Vital Signs (12 hours) Temp Pulse Resp BP Pulse Ox 06/25/17 09:29 98.1 F 101 H 16 109/52 L 100 06/25/17 04:00 97.8 F 85 16 120/59 L 97 Weight Admit Weight 167 lb 6 oz Weight 165 lb 9.6 oz I&O: 06/24/17 06/25/17 06/26/17 06:59 06:59 06:59 Intake Total 1920 1785 Output Total 1150 1000 Balance 770 785 Result Diagrams: 06/25/17 04:45 06/25/17 04:45 Additional Labs: Accuchecks 06/24/17 06:28 POC Glucose 89 Phys Exam - Physical Examination Constitutional: NAD HEENT: PERRLA Neck: no JVD Respiratory: no wheezing Cardiovascular: no significant murmur Gastrointestinal: non-tender Musculoskeletal: pulses present Neurological: moves all 4 limbs Psychiatric: A&O x 3 Deviation from normal: ulcer as documented by wound care Dx/Plan (1) Sepsis Code(s): A41.9 - SEPSIS, UNSPECIFIED ORGANISM Status: Resolved Qualifiers: Comment: HR now normal, BP normal now (2) Decubital ulcer Code(s): L89.90 - PRESSURE ULCER OF UNSPECIFIED SITE, UNSPECIFIED STAGE Status : Acute (3) Protein-calorie malnutrition, moderate Code(s): E44.0 - MODERATE PROTEIN-CALORIE MALNUTRITION Status: Acute (4) Ventricular tachyarrhythmia Code(s): I47.2 - VENTRICULAR TACHYCARDIA Status: Resolved (5) Elevated troponin Code(s): R74.8 - ABNORMAL LEVELS OF OTHER SERUM ENZYMES Status: Acute (6) Renal failure (ARF), acute on chronic Code(s): N17.9 - ACUTE KIDNEY FAILURE, UNSPECIFIED; N18.9 - CHRONIC KIDNEY DISEASE, UNSPECIFIED Status: Resolved (7) Hyponatremia Code(s): E87.1 - HYPO-OSMOLALITY AND HYPONATREMIA Status: Resolved (8) Physical deconditioning Code(s): R53.81 - OTHER MALAISE Status: Acute (9) UTI (urinary tract infection) Status: Resolved Comment: ur cul shows yeast (10) HTN (hypertension) Code(s): I10 - ESSENTIAL (PRIMARY) HYPERTENSION Status: Chronic Qualifiers: Comment: Stable (11) Hypoglycemia Code(s): E16.2 - HYPOGLYCEMIA, UNSPECIFIED Status: Resolved (12) Coagulopathy Status: Resolved (13) Afib Code(s): I48.91 - UNSPECIFIED ATRIAL FIBRILLATION Status: Chronic Comment: rate controlled on anticoag (14) Hypokalemia Code(s): E87.6 - HYPOKALEMIA Status: Acute (15) Hypomagnesemia Code(s): E83.42 - HYPOMAGNESEMIA Status: Acute - Plan * replace lytes * dietitan consult * cont wound care * f/u bx result * f/u dr trejo plan * out pt f/u with wound care with dr bahena * speech eval
[2017-06-25] MEDS ORDERED: Potassium Chloride 20 MEQ TAB PO SCH (11:00)
--- NOTE | 2017-06-25 14:29 | RAD ---
CHEST 1 VIEW: HISTORY: Central line placement. COMPARISON: 06/21/17. FINDINGS: Cardiac silhouette is magnified and enlarged. Pulmonary vasculature is upper limits of normal. Med iastinum is midline with aortic calcification. The tip of a left subclavian central venous catheter projects over the superior vena cava. No lobar consolidation or pneumothorax are apparent. Cardia c monitor leads overlie the chest. IMPRESSION: Left subclavian central venous catheter is in good radiographic position. POS: SIS
--- NOTE | 2017-06-25 16:11 | PDOC.CTH ---
<Tamiko Gleason - Last Filed: 06/25/17 16:07> Cardiology Progress Note - Subjective The pt was seen and examined. No overnight events. No cardiac complaints. She complains of Chronic Back pain. - Objective Vital Signs Temp Pulse Pulse Pulse Resp BP BP 06/25/17 12:05 98.0 F 89 16 06/25/17 09:49 100 101 H 129/62 109/52 L 06/25/17 09:29 98.1 F 101 H 16 BP Pulse Ox 06/25/17 12:05 129/58 L 98 06/25/17 09:49 06/25/17 09:29 109/52 L 100 Admit Weight 167 lb 6 oz Weight 165 lb 9.6 oz 06/24/17 06/25/17 06/26/17 06:59 06:59 06:59 Intake Total 1920 1785 Output Total 1150 1000 Balance 770 785 - Physical Examination General/Neuro: other: (confused) Lungs: other: (diminished in bilat. bases) Heart: other: (irregular) Abdomen: soft Extremities: other: (3+ pitting edema in bilat. ankles) - Telemetry Telemetry Rhythm: afib 90-100s - Labs Result Diagrams: 06/25/17 04:45 06/25/17 04:45 Troponin/CKMB CK-MB (CK-2) 14.4 ng/mL (0-6.6) H* 06/22/17 00:25 Troponin I 0.036 ng/mL (< 0.028) H 06/22/17 17:45 - Assessment/Plan 1. Hx of Wide V tach 2. Chronic Afib - rate well controlled; on Coumadin; Coumadin is on hold today for INR 3.7 today; Coumadin dosage is managed by pharmacy 3. HTN - stable with current medication 4. Acute on CKD - stable 5. Hypokalemia - KCl Relaced 6. decubital ulcer - Wound Care consult 7. Sepsis - managed by Dr Anastasiya WILKINS Reviewed Review of Systems - Review of Systems Constitutional: reports: see HPI EENTM: reports: see HPI Respiratory: reports: see HPI Cardiac (ROS): reports: see HPI ABD/GI: reports: see HPI : reports: see HPI Musculoskeletal: reports: see HPI Skin: reports: see HPI <Darshan Barba - Last Filed: 06/25/17 20:06> Cardiology Progress Note - Objective Vital Signs Temp Pulse Pulse Pulse Resp BP BP 06/25/17 19:40 97.6 F 111 H 18 06/25/17 17:08 97.7 F 98 16 06/25/17 12:05 98.0 F 89 16 06/25/17 09:49 100 101 H 129/62 109/52 L 06/25/17 09:29 98.1 F 101 H 16 BP Pulse Ox 06/25/17 19:40 136/72 98 06/25/17 17:08 114/55 L 100 06/25/17 12:05 129/58 L 98 06/25/17 09:49 06/25/17 09:29 109/52 L 100 Admit Weight 167 lb 6 oz Weight 165 lb 9.6 oz 06/24/17 06/25/17 06/26/17 06:59 06:59 06:59 Intake Total 1920 1785 Output Total 1150 1000 Balance 770 785 - Labs Result Diagrams: 06/25/17 04:45 06/25/17 04:45 Troponin/CKMB CK-MB (CK-2) 14.4 ng/mL (0-6.6) H* 06/22/17 00:25 Troponin I 0.036 ng/mL (< 0.028) H 06/22/17 17:45 - Assessment/Plan Pt. was seen and eval. by me. I agree with the A\P by the SNACK STEWARDESS.Family is at bedside and very supportive.
--- NOTE | 2017-06-25 16:45 | OP ---
PREOPERATIVE DIAGNOSES: Septicemia, urinary tract infection, poor intravenous access. POSTOPERATIVE DIAGNOSES: Septicemia, urinary tract infection, poor intravenous access. PROCEDURES: Left subclavian vein triple lumen catheter. SURGEON: Yonny Rogel M.D. ANESTHESIA: 1% Xylocaine local. DESCRIPTION OF PROCEDURE: At the patient's bedside, chest periclavicular area was prepared with chl oraprep, draped in routine fashion. 1% Xylocaine infiltrated into skin and subcutaneous tissue abou t the operative site. Trocar catheter introduced infraclavicular obtaining good return of venous bl ood from the subclavian vein. J-wire threaded, trocar catheter removed. Skin incised and enlarged sharply. Seldinger technique used to place a triple lumen catheter, removing the J wire, securing i t with 2 interrupted sutures of 3-0 silk. Biopatch sterile dressing applied. Each port aspirated b lood and flushed with saline solution. The patient tolerated the procedure well.
[2017-06-25] MEDS ORDERED: Warfarin Sodium 1 MG TAB PO SCH (17:00)
[2017-06-25] MEDS: Magnesium Oxide 400 MG TAB PO SCH (21:16)
[2017-06-26 05:01] LABS: Prothrombin Time 42.8 SEC (12.0-14.7)
[2017-06-26] MEDS ORDERED: Phytonadione 10 MG/ML AMP PO SCH (05:30)
[2017-06-26 05:32] LABS: Anion Gap 8 mmol/L (10-20); BUN (Urea Nitrogen) 14 mg/dL (9.8-20.1); BUN/Creatinine Ratio 19.18; Calc. Creatinine Clearance 68 mL/min (70-130); Calcium 7.7 mg/dL (7.8-10.44); Carbon Dioxide 27 mmol/L (23-31); Chloride 108 mmol/L (98-107); Estimated GFR-MDRD Greater than 90; Phosphorus 2.2 mg/dL (2.3-4.7)
[2017-06-26] MEDS: Saccharomyces boulardii 250 MG CAP PO SCH (08:44)
[2017-06-26] MEDS: Acetaminophen 325 MG TAB PO PRN ×3 (08:44→21:26)
[2017-06-26] MEDS: Magnesium Oxide 400 MG TAB PO SCH ×2 (08:44→21:26)
[2017-06-26] MEDS: Sodium Hypochlorite 0.25% Solution 480 ML BOT TOP SCH (10:00)
[2017-06-26] MEDS: K-Phos Neutral 250 MG TAB PO SCH ×2 (10:08→21:26)
--- NOTE | 2017-06-26 11:29 | PDOC.PN ---
- Subjective Encounter Start Date: 06/26/17 Encounter Start Time: 17:07 Patient seen and examined. No new complaints. No overnight events - Objective Resuscitation Status: Resuscitation Status FULL:Full Resuscitation MAR Reviewed: Yes Vital Signs & Weight: Vital Signs (12 hours) Temp Pulse Resp BP Pulse Ox 06/26/17 09:03 98.1 F 107 H 18 119/56 L 98 06/26/17 04:45 98.4 F 114 H 22 H 165/115 H 100 Weight Admit Weight 167 lb 6 oz Weight 163 lb 3.2 oz I&O: 06/25/17 06/26/17 06/27/17 06:59 06:59 06:59 Intake Total 1785 240 Output Total 1000 650 Balance 785 -410 Result Diagrams: 06/25/17 04:45 06/26/17 04:28 Additional Labs: Accuchecks 06/26/17 06/25/17 06:08 16:55 POC Glucose 106 81 Phys Exam - Physical Examination Constitutional: NAD HEENT: PERRLA Neck: no JVD Respiratory: no rales Cardiovascular: no significant murmur Gastrointestinal: non-tender Musculoskeletal: pulses present Neurological: moves all 4 limbs Psychiatric: A&O x 3 Deviation from normal: decubitus ulcer as noted per wound care Dx/Plan (1) Sepsis Code(s): A41.9 - SEPSIS, UNSPECIFIED ORGANISM Status: Resolved Qualifiers: Comment: HR now normal, BP normal now (2) Decubital ulcer Code(s): L89.90 - PRESSURE ULCER OF UNSPECIFIED SITE, UNSPECIFIED STAGE Status : Acute (3) Protein-calorie malnutrition, moderate Code(s): E44.0 - MODERATE PROTEIN-CALORIE MALNUTRITION Status: Acute (4) Ventricular tachyarrhythmia Code(s): I47.2 - VENTRICULAR TACHYCARDIA Status: Resolved (5) Elevated troponin Code(s): R74.8 - ABNORMAL LEVELS OF OTHER SERUM ENZYMES Status: Acute (6) Renal failure (ARF), acute on chronic Code(s): N17.9 - ACUTE KIDNEY FAILURE, UNSPECIFIED; N18.9 - CHRONIC KIDNEY DISEASE, UNSPECIFIED Status: Resolved (7) Hyponatremia Code(s): E87.1 - HYPO-OSMOLALITY AND HYPONATREMIA Status: Resolved (8) Physical deconditioning Code(s): R53.81 - OTHER MALAISE Status: Acute (9) UTI (urinary tract infection) Status: Resolved Comment: ur cul shows yeast (10) HTN (hypertension) Code(s): I10 - ESSENTIAL (PRIMARY) HYPERTENSION Status: Chronic Qualifiers: Comment: Stable (11) Hypoglycemia Code(s): E16.2 - HYPOGLYCEMIA, UNSPECIFIED Status: Resolved (12) Coagulopathy Status: Resolved (13) Afib Code(s): I48.91 - UNSPECIFIED ATRIAL FIBRILLATION Status: Chronic Comment: rate controlled on anticoag (14) Hypokalemia Code(s): E87.6 - HYPOKALEMIA Status: Acute (15) Hypomagnesemia Code(s): E83.42 - HYPOMAGNESEMIA Status: Acute (16) Hypophosphatemia Code(s): E83.39 - OTHER DISORDERS OF PHOSPHORUS METABOLISM Status: Acute (17) Coagulopathy Status: Acute Comment: hold coumadin (18) Poor appetite Code(s): R63.0 - ANOREXIA Status: Acute Comment: d/w with dietitian if she meets nutritional requirements - Plan * cont current care * f/u skin bx * case mx to help with placement
--- NOTE | 2017-06-26 18:10 | PDOC.CTH ---
<Tamiko Gleason - Last Filed: 06/26/17 18:08> Cardiology Progress Note - Subjective The pt was seen and examined. No overnight events. No cardiac complaints. She still complains of generalized pain. Daughter at bedside. - Objective Vital Signs Temp Pulse Resp BP Pulse Ox 06/26/17 15:55 98.5 F 105 H 16 131/62 100 06/26/17 12:45 97.7 F 99 16 104/61 97 06/26/17 09:03 98.1 F 107 H 18 119/56 L 98 Admit Weight 167 lb 6 oz Weight 163 lb 3.2 oz 06/25/17 06/26/17 06/27/17 06:59 06:59 06:59 Intake Total 1785 240 Output Total 1000 650 Balance 785 -410 - Physical Examination General/Neuro: alert & oriented x3 Neck: no JVD present Lungs: CTA (diminished at bases) Heart: other: (Irregular) Abdomen: soft Extremities: other: (2+ edema in bilat ankles) - Telemetry Telemetry Rhythm: Afib - Labs Result Diagrams: 06/25/17 04:45 06/26/17 04:28 Troponin/CKMB CK-MB (CK-2) 14.4 ng/mL (0-6.6) H* 06/22/17 00:25 Troponin I 0.036 ng/mL (< 0.028) H 06/22/17 17:45 - Assessment/Plan 1. Hx of Wide V tach - No episodes yesterday and today; cont. monitor on tele 2. Chronic Afib - rate well controlled; on Coumadin; Coumadin is on hold today for INR 4.2 today; Coumadin dosage is managed by pharmacy 3. HTN - stable with current medication 4. Acute on CKD - stable 5. Hypokalemia - KCl Relaced 6. decubital ulcer - Wound Care consult 7. Sepsis - managed by Dr Anastasiya WILKINS Reviewed Review of Systems - Review of Systems Constitutional: reports: see HPI EENTM: reports: no symptoms reported Respiratory: reports: no symptoms reported Cardiac (ROS): reports: no symptoms reported ABD/GI: reports: no symptoms reported : reports: no symptoms reported Musculoskeletal: reports: see HPI <Darshan Barba - Last Filed: 06/26/17 19:17> Cardiology Progress Note - Objective Vital Signs Temp Pulse Resp BP Pulse Ox 06/26/17 15:55 98.5 F 105 H 16 131/62 100 06/26/17 12:45 97.7 F 99 16 104/61 97 06/26/17 09:03 98.1 F 107 H 18 119/56 L 98 Admit Weight 167 lb 6 oz Weight 163 lb 3.2 oz 06/25/17 06/26/17 06/27/17 06:59 06:59 06:59 Intake Total 1785 240 960 Output Total 1000 650 250 Balance 785 -410 710 - Labs Result Diagrams: 06/25/17 04:45 06/26/17 04:28 Troponin/CKMB CK-MB (CK-2) 14.4 ng/mL (0-6.6) H* 06/22/17 00:25 Troponin I 0.036 ng/mL (< 0.028) H 06/22/17 17:45 - Assessment/Plan Pt. was seen and evaluated by me. I agree with the A/P by the [employer]. She did have another episode of NSVTACH this afternoon ,18 beats, and was apparently asymptomatic. We may need to consider an EP consult. her EF is WNL and recent stress test was negative for ischemia.
[2017-06-27] MEDS: Zolpidem Tartrate 5 MG TAB PO PRN ×2 (00:02→20:34)
[2017-06-27] MEDS: Acetaminophen 325 MG TAB PO PRN ×2 (05:02→20:34)
[2017-06-27 05:14] LABS: Prothrombin Time 30.2 SEC (12.0-14.7)
[2017-06-27] MEDS: Magnesium Oxide 400 MG TAB PO SCH ×2 (09:52→20:33)
[2017-06-27] MEDS: K-Phos Neutral 250 MG TAB PO SCH (09:52)
[2017-06-27] MEDS: Saccharomyces boulardii 250 MG CAP PO SCH (09:53)
[2017-06-27] MEDS: Sodium Hypochlorite 0.25% Solution 480 ML BOT TOP SCH (09:54)
[2017-06-27] MEDS ORDERED: Sodium Chloride 0.9% 1,000 ML IV SCH (10:00)
[2017-06-27] MEDS ORDERED: Vancomycin HCl 1 GM in Premix Bag 1 BAG IVPB SCH (10:00)
[2017-06-27] MEDS ORDERED: VANCOMYCIN IVPB PRN (10:07)
[2017-06-27] MEDS: Vancomycin HCl 1 GM in Premix Bag 1 BAG IVPB SCH (10:55)
--- NOTE | 2017-06-27 12:02 | PDOC.PN ---
- Subjective Encounter Start Date: 06/27/17 Encounter Start Time: 12:00 pt did not sleep well feels lethargic, had a blood sugar of 72 is not feeling hungry eating very little no n/v no f/c - Objective Resuscitation Status: Resuscitation Status FULL:Full Resuscitation MAR Reviewed: Yes Vital Signs & Weight: Vital Signs (12 hours) Temp Pulse Resp BP Pulse Ox 06/27/17 11:09 98.9 F 111 H 18 129/60 96 06/27/17 08:22 98.9 F 111 H 18 107/51 L 98 06/27/17 04:30 98.5 F 102 H 20 118/60 98 Weight Admit Weight 167 lb 6 oz Weight 165 lb 12.8 oz I&O: 06/26/17 06/27/17 06/28/17 06:59 06:59 06:59 Intake Total 240 1080 Output Total 650 500 Balance -410 580 Result Diagrams: 06/25/17 04:45 06/26/17 04:28 Additional Labs: Accuchecks 06/27/17 06/26/17 06/26/17 06:14 20:29 17:08 POC Glucose 72 105 156 H 06/26/17 11:23 POC Glucose 100 Phys Exam - Physical Examination Constitutional: NAD HEENT: PERRLA Neck: no JVD Respiratory: no rales Cardiovascular: no significant murmur Gastrointestinal: soft, non-tender Musculoskeletal: pulses present Neurological: moves all 4 limbs Psychiatric: A&O x 3 Deviation from normal: wounds as noted by wound care note Dx/Plan (1) Sepsis Code(s): A41.9 - SEPSIS, UNSPECIFIED ORGANISM Status: Resolved Qualifiers: (2) Decubital ulcer Code(s): L89.90 - PRESSURE ULCER OF UNSPECIFIED SITE, UNSPECIFIED STAGE Status : Acute (3) Protein-calorie malnutrition, moderate Code(s): E44.0 - MODERATE PROTEIN-CALORIE MALNUTRITION Status: Acute (4) Ventricular tachyarrhythmia Code(s): I47.2 - VENTRICULAR TACHYCARDIA Status: Resolved (5) Elevated troponin Code(s): R74.8 - ABNORMAL LEVELS OF OTHER SERUM ENZYMES Status: Acute (6) Renal failure (ARF), acute on chronic Code(s): N17.9 - ACUTE KIDNEY FAILURE, UNSPECIFIED; N18.9 - CHRONIC KIDNEY DISEASE, UNSPECIFIED Status: Resolved (7) Hyponatremia Code(s): E87.1 - HYPO-OSMOLALITY AND HYPONATREMIA Status: Resolved (8) Physical deconditioning Code(s): R53.81 - OTHER MALAISE Status: Acute (9) UTI (urinary tract infection) Status: Resolved Comment: ur cul shows yeast (10) HTN (hypertension) Code(s): I10 - ESSENTIAL (PRIMARY) HYPERTENSION Status: Chronic Qualifiers: Comment: Stable (11) Hypoglycemia Code(s): E16.2 - HYPOGLYCEMIA, UNSPECIFIED Status: Resolved (12) Coagulopathy Status: Resolved (13) Afib Code(s): I48.91 - UNSPECIFIED ATRIAL FIBRILLATION Status: Chronic Comment: rate controlled on anticoag (14) Hypokalemia Code(s): E87.6 - HYPOKALEMIA Status: Acute (15) Hypomagnesemia Code(s): E83.42 - HYPOMAGNESEMIA Status: Acute (16) Hypophosphatemia Code(s): E83.39 - OTHER DISORDERS OF PHOSPHORUS METABOLISM Status: Acute (17) Coagulopathy Status: Acute Comment: hold coumadin (18) Poor appetite Code(s): R63.0 - ANOREXIA Status: Acute Comment: d/w with dietitian if she meets nutritional requirements - Plan * recheck ua and blood culture * start her back on vancomycin and diflucan and monitor * spoke to family and voiced concern that her po intake not meeting metaboic demands which they understand. they consented for peg tube. consult gi for peg tube * change fluids to d5ns * pt has central line * spoke to family and pt about code status- still wants to be full code * f/u skin biopsy results * cardioloy and id input appreciated * consult palliative care
--- NOTE | 2017-06-27 16:39 | PDOC.CTH ---
<Tamiko Gleason - Last Filed: 06/27/17 16:37> Cardiology Progress Note - Subjective The pt was seen and examined. No overnight events. No cardiac complaints. She concerned about dressing on her Lt hip. According to the pt's family, she is not eating well. - Objective Vital Signs Temp Pulse Pulse Pulse Resp BP BP 06/27/17 15:52 98.5 F 103 H 16 06/27/17 14:47 95 86 117/65 110/54 L 06/27/17 11:09 98.9 F 111 H 18 06/27/17 08:22 98.9 F 111 H 18 BP Pulse Ox 06/27/17 15:52 109/73 100 06/27/17 14:47 06/27/17 11:09 129/60 96 06/27/17 08:22 107/51 L 98 Admit Weight 167 lb 6 oz Weight 165 lb 12.8 oz 06/26/17 06/27/17 06/28/17 06:59 06:59 06:59 Intake Total 240 1080 Output Total 650 500 Balance -410 580 - Physical Examination General/Neuro: alert & oriented x3 Neck: no JVD present Lungs: other: (coarse and diminished at bases) Heart: other: (Irregular) Abdomen: soft Extremities: other: (edema in bilat. ankles) - Telemetry Telemetry Rhythm: Afib - Labs Result Diagrams: 06/25/17 04:45 06/26/17 04:28 Troponin/CKMB CK-MB (CK-2) 14.4 ng/mL (0-6.6) H* 06/22/17 00:25 Troponin I 0.036 ng/mL (< 0.028) H 06/22/17 17:45 - Assessment/Plan 1. Hx of Wide V tach - No episodes yesterday and today; cont. monitor on tele 2. Chronic Afib - rate well controlled; on Coumadin; Coumadin will be resumed from this PM for INR 2.7. Coumadin dosage is managed by pharmacy 3. HTN - stable with current medication 4. Acute on CKD - stable 5. Hypokalemia - KCl Relaced 6. decubital ulcer - Wound Care consult 7. Sepsis - managed by Dr Anastasiya WILKINS Reviewed * Possible PEG tube placement * The pt expressed that she would like to be Full code Review of Systems - Review of Systems Constitutional: reports: see HPI EENTM: reports: no symptoms reported Respiratory: reports: no symptoms reported Cardiac (ROS): reports: no symptoms reported ABD/GI: reports: no symptoms reported : reports: no symptoms reported <Darshan Barba - Last Filed: 06/27/17 17:22> Cardiology Progress Note - Objective Vital Signs Temp Pulse Pulse Pulse Resp BP BP 06/27/17 15:52 98.5 F 103 H 16 06/27/17 14:47 95 86 117/65 110/54 L 06/27/17 11:09 98.9 F 111 H 18 06/27/17 08:22 98.9 F 111 H 18 BP Pulse Ox 06/27/17 15:52 109/73 100 06/27/17 14:47 06/27/17 11:09 129/60 96 06/27/17 08:22 107/51 L 98 Admit Weight 167 lb 6 oz Weight 165 lb 12.8 oz 06/26/17 06/27/17 06/28/17 06:59 06:59 06:59 Intake Total 240 1080 Output Total 650 500 Balance -410 580 - Labs Result Diagrams: 06/25/17 04:45 06/26/17 04:28 Troponin/CKMB CK-MB (CK-2) 14.4 ng/mL (0-6.6) H* 06/22/17 00:25 Troponin I 0.036 ng/mL (< 0.028) H 06/22/17 17:45 - Assessment/Plan Pt. seen and eval. by me. Multiple skin lesions/ulcerations. No new complaints. I agree with the A/P by the [employer]. The AFib. is chronic and the rate is reasonably well controlled.Continue present meds.
[2017-06-27] MEDS ORDERED: Warfarin Sodium 0.5 MG HALF.TAB PO SCH ×2 (17:00→19:30)
[2017-06-27 17:09] LABS: Bilirubin Negative (Negative); Blood, Urine Negative (Negative); Glucose, Urine (Dipstick) Negative (Negative); Ketone, Urine Negative (Negative); Nitrite Negative (Negative); Protein, Urine (Dipstick) 30 mg/dL (Neg-Trace)
[2017-06-27 17:14] LABS: Bacteria/HPF None Seen HPF (None Seen); Hyaline Casts/LPF 0-3 HYALINE CAST LPF (0-3 Hyaline); Squamous Epithelial 0-3 HPF (0-3)
[2017-06-27] MEDS: Dextrose 5 % And 0.9 % NaCl 1,000 ML IV SCH (20:33)
--- NOTE | 2017-06-28 06:06 | CON ---
DATE OF CONSULTATION: 06/27/2017 REFERRING PHYSICIAN: [facility] REASON FOR CONSULTATION: Anorexia, poor oral intake, and the need for nutritional support. HISTORY OF PRESENT ILLNESS: Admitting history and physical reviewed and also consulted by Dr. Langford and Dr. Shawn ortiz. The patient was brought in because of sepsis and altered mental status. Apparently, she has had a chronic abdominal wall infection and also appears to have some UTI. She is on antibiotic therapy. The patient has been eating less and less over the last several days. I did speak to the nurse who was taking care of her. She was eating actually about 20-25% until a cou ple of days ago. Today, she refuses to eat. She simply does not have an appetite. She also has so me vague abdominal pain. Although, she is awake and responsive, she is trying to mumble and it is v alf difficult to understand what she is trying to tell me. Apparently, she is not very mobile and h as been basically bedridden for several years. The patient has history of degenerative joint diseas e, severe ankylosis. She also has history of hypertension, atrial fibrillation, mitral regurgitatio n, and also aortic regurgitation. There is also history of chronic acid reflux noted. The patient has seen me in 2016 when she was hospitalized with abdominal pain, nausea, vomiting, and diarrhea. It was felt at that time the symptom was most likely gastroenteritis and no workup was necessary at that time. ALLERGIES: PENICILLIN. SURGERIES: 1. Status post cholecystectomy. 2. Renal artery stent placement. 3. Breast biopsy. 4. ERCP with papillotomy and stone removal in the past. FAMILY HISTORY: Nonrelevant. MEDICATIONS: Include warfarin, Prinzide, albuterol, naproxen, Reglan, Protonix, tramadol, Gibson. S he is also on fluconazole, loperamide, magnesium supplement, Zofran, pantoprazole, vancomycin, Coumadin, etc. REVIEW OF SYSTEMS: Unobtainable as she is not a very good historian. She is trying to mumble. PHYSICAL EXAMINATION: GENERAL: Reveals an elderly black female who appears comfortable. She has some deformities of the hands from arthritis. She is awake and in no distress. However, she is trying to mumble something that is very difficult to understand what she is trying to tell me. VITAL SIGNS: She is afebrile, pulse is 103, blood pressure is 109/73. HEENT: Conjunctivae clear. CARDIOVASCULAR SYSTEM: First and second heart sounds are normal. LUNGS: Clear to auscultation. ABDOMEN: Flabby and pendulous. She has a dressing over the left lower abdomen status post abdomina l wall infection. LABORATORY DATA: Most recent one 06/25/2017, WBC 9800, hemoglobin is 9.4, hematocrit 29.4, MCV 99.3 , platelet count 388,000, polymorphs 72, lymphocytes 19. Serum chemistry, glucose is 72 today. On 06/26/2017, sodium 139, potassium 3.7, chloride 108, bicarbonate 27, BUN is 14, creatinine is 0.73, glucose 96, calcium 7.7, albumin is 1.7. Her PT today is about 30.2, INR is 2.7. CLINICAL IMPRESSION: An 81-year-old -[place] female with abdominal wall infection, urosepsi s, etc. She has been on broad-spectrum antibiotic therapy. She has been eating less and less over the last several days. Apparently, Dr. Li spoke to the family. The patient's family is a greeable for the EGD and PEG tube placement. I did talk to her daughter, Radha, over the telephone. I explained her about the procedure in detail. She was also told that the plan is to repeat a PT/I NR tomorrow. If the INR is less than 2, we will plan for an EGD and PEG tube placement tomorrow. I f the INR is still high, we will hold the Coumadin until Tuesday and plan for the procedure on Tue.
[2017-06-28 06:49] LABS: #Eosinphils 0.2 thou/uL (0.0-0.7); #Lymphocytes 2.4 thou/uL (1.20-3.40); #Monocytes 0.9 thou/uL (0.11-0.59); #Neutrophils 5.9 thou/uL (1.40-6.50); %Basophils 0.3 % (0.0-1.0); %Eosinophils 1.9 % (0.0-10.0); %Lymphocytes 25.3 % (21.0-51.0); %Monocytes 9.1 % (0.0-10.0); Hematocrit 24.4 % (36.0-47.0); Mean Platelet Volume 6.9 fL (7.4-10.4); Red Blood Cell (RBC) Count 2.45 mill/uL (4.20-5.40); White Blood Cell (WBC) Count 9.3 thou/uL (4.8-10.8)
[2017-06-28 06:58] LABS: Prothrombin Time 33.7 SEC (12.0-14.7)
[2017-06-28 07:13] LABS: Anion Gap 6 mmol/L (10-20); BUN (Urea Nitrogen) 9 mg/dL (9.8-20.1); BUN/Creatinine Ratio 14.06; Calc. Creatinine Clearance 79 mL/min (70-130); Calcium 7.2 mg/dL (7.8-10.44); Carbon Dioxide 28 mmol/L (23-31); Chloride 111 mmol/L (98-107); Estimated GFR-MDRD Greater than 90; Phosphorus 2.2 mg/dL (2.3-4.7)
[2017-06-28] MEDS ORDERED: Magnesium Sulfate 4 GM, Admixture Fee 1 EACH in Sodium Chloride 0.9% 250 ML 250 ML IVPB SCH (07:30)
[2017-06-28] MEDS ORDERED: K-Phos Neutral 250 MG TAB PO SCH (08:00)
[2017-06-28] MEDS: Megestrol Acetate 800 MG/20 ML UDCUP PO SCH (09:05)
[2017-06-28] MEDS: Fluconazole In NaCl,Iso-Osm 100 MG in Premix Bag 1 BAG IVPB SCH ×2 (09:06)
[2017-06-28] MEDS: Saccharomyces boulardii 250 MG CAP PO SCH (09:07)
[2017-06-28] MEDS: Sodium Hypochlorite 0.25% Solution 480 ML BOT TOP SCH (09:23)
[2017-06-28] MEDS: Vancomycin HCl 1 GM in Premix Bag 1 BAG IVPB SCH (10:39)
[2017-06-28] MEDS: Dextrose 5 % And 0.9 % NaCl 1,000 ML IV SCH ×2 (10:40→23:50)
[2017-06-28] MEDS: Acetaminophen 325 MG TAB PO PRN (11:00)
--- NOTE | 2017-06-28 15:23 | PQF ---
KANANIC JAE MCCARTHY MD [id number] [facility]257 [id number] CLINICAL DOCUMENTATION IMPROVEMENT CLARIFICATION FORM: ICD-10 Updated PLEASE DO AN ADDENDUM TO THE PROGRESS NOTE WITH ANY DOCUMENTATION UPDATES OR ADDITIONS AND CARRY THROUGH TO DC SUMMARY. THANK YOU. DATE: 06-28-17 ATTN: DR. GUILLEN Please exercise your independent, professional judgment in responding to the clarification form. Clinical indicators are provided on the bottom of this form for your review Please check appropriate box(s): [ ] Functional Quadriplegia W/ osteoarthritis [ ] Weakness (please specify anatomical area) Specify: [ ] Non dominant side [ ] Dominant side [ ] Other diagnosis [ ] Unable to determine In addition, please specify: Present on Admission (POA): [ ] Yes [ ] No [ ] Unable to determine CLINICAL INDICATORS - SIGNS / SYMPTOMS / LABS H&P: NONAMBULATORY AND MOSTLY BEDBOUND FOR 40 YEARS PT EVALUATION: STRENGTH BLE 2- BUE 2- NURSING ASSESSMENT: CAN NOT WALK; CAN NOT STAND MAXIMUM ASSISTANCE INCONTINENT - STOOL INDWELLING KELSEY CATHETER RISK FACTORS H&P: H&P: NONAMBULATORY AND MOSTLY BEDBOUND FOR 40 YEARS TREATMENT: NURSING ASSESSMENT: CAN NOT WALK; CAN NOT STAND MAXIMUM / TOTAL ASSISTANCE INCONTINENT - STOOL INDWELLING KELSEY CATHETER TURN Q2H AIR BED GI CONSULT FOR POSSIBLE PEG TUBE WOUNDCARE CONSULT: RIGHT LOWER BACK PU STAGE 3 SACRUM PU STAGE 3 THANK YOU, ZEE (This form is maintained as a part of the permanent medical record) 2014 [employer]. All Rights Reserved Zee Breaux RN, BS [email or web address] Cell Thanks Berhane CARTAGENA
[2017-06-28] MEDS ORDERED: Warfarin Sodium 0.5 MG HALF.TAB PO SCH (17:00)
--- NOTE | 2017-06-28 17:45 | PDOC.PN ---
- Subjective Encounter Start Date: 06/28/17 Encounter Start Time: 10:15 Patient seen and examined. No new complaints. No overnight events - Objective Resuscitation Status: Resuscitation Status FULL:Full Resuscitation MAR Reviewed: Yes Vital Signs & Weight: Vital Signs (12 hours) Temp Pulse Pulse Pulse Resp BP BP 06/28/17 17:30 97.9 F 108 H 16 06/28/17 14:55 99 101 H 124/60 132/60 06/28/17 12:40 98.2 F 98 16 06/28/17 08:40 98.2 F 98 16 BP Pulse Ox 06/28/17 17:30 130/58 L 100 06/28/17 14:55 06/28/17 12:40 113/58 L 100 06/28/17 08:40 111/58 L 99 Weight Admit Weight 167 lb 6 oz Weight 165 lb 12.8 oz I&O: 06/27/17 06/28/17 06/29/17 06:59 06:59 06:59 Intake Total 1080 1702 Output Total 500 530 Balance 580 1172 Result Diagrams: 06/29/17 04:30 06/29/17 04:30 Additional Labs: Accuchecks 06/28/17 06/28/17 06/27/17 17:07 05:56 20:50 POC Glucose 110 89 98 EKG Reviewed by me: Yes (Tele Afib - rate controlled) Phys Exam - Physical Examination Constitutional: NAD Respiratory: no wheezing, no rhonchi Cardiovascular: no rub, irregular Gastrointestinal: soft, positive bowel sounds Dx/Plan (1) Swallowing dysfunction Code(s): R13.10 - DYSPHAGIA, UNSPECIFIED Status: Acute Comment: with severe protein calorie malnutrition (2) NSVT (nonsustained ventricular tachycardia) Code(s): I47.2 - VENTRICULAR TACHYCARDIA Status: Acute Comment: Started on Amiodarone (3) Functional quadriplegia Code(s): R53.2 - FUNCTIONAL QUADRIPLEGIA Status: Acute Comment: due to DJD (4) Chronic atrial fibrillation Code(s): I48.2 - CHRONIC ATRIAL FIBRILLATION Status: Chronic Comment: Rate controlled, on Anticoag (5) Electrolyte abnormality Code(s): E87.8 - OTH DISORDERS OF ELECTROLYTE AND FLUID BALANCE, NEC Status: Acute (6) Other issues per previous notes - Plan cont current plan of care, plan discussed w/ family, continue antibiotics, PT/OT , DVT proph w/lovenox * PEG tube once INR < 2 * GI/Cardio following * Cont current meds as below * Cont to monitor * Started on Amiodarone Review of Systems - Review of Systems Other: Cannot obtain due to current cognition - Medications/Allergies Allergies/Adverse Reactions: Allergies Allergy/AdvReac Type Severity Reaction Status Date / Time Penicillins Allergy Verified 09/15/13 11:09 Medications: Current Medications Acetaminophen (Tylenol) 650 mg PO Q4H PRN PRN Reason: Headache/Fever or Pain Last Admin: 06/28/17 11:00 Dose: 650 mg Al Hydroxide/Mg Hydroxide (Maalox) 30 ml PO Q6H PRN PRN Reason: Heartburn or Indigestion Artificial Tears (Tears Renewed 15ml Bottle) 0 drop EA EYE PRN PRN PRN Reason: Dry Eyes Bisacodyl (Dulcolax) 10 mg WV Q24H PRN PRN Reason: Constipation Guaifenesin (Robitussin Sf) 200 mg PO Q4H PRN PRN Reason: Cough Hydralazine HCl (Apresoline) 10 mg SLOW IVP Q4H PRN PRN Reason: Systolic BP > 180 Fluconazole/Sodium Chloride (100 mg/ Device) 50 mls @ 100 mls/hr IVPB DAILY [facility] Stop: 07/01/17 09:01 Last Admin: 06/28/17 09:06 Dose: 50 mls Vancomycin HCl 1 gm/ Device 200 mls @ 200 mls/hr IVPB 1100 [facility] Last Admin: 06/28/17 10:39 Dose: 200 mls Dextrose/Sodium Chloride (D5 0.9% Ns) 1,000 mls @ 60 mls/hr IV .[id number] [facility] Last Admin: 06/28/17 10:40 Dose: 1,000 mls Loperamide HCl (Imodium) 2 mg PO PRN PRN PRN Reason: Diarrhea/Loose Stools Loratadine (Claritin) 10 mg PO DAILYPRN PRN PRN Reason: Sinus Symptoms Magnesium Hydroxide (Milk Of Magnesium) 30 ml PO DAILYPRN PRN PRN Reason: Constipation Megestrol Acetate (Megace) 800 mg PO DAILY [facility] Last Admin: 06/28/17 09:05 Dose: 800 mg Mineral Oil/White Petrolatum (Eucerin Cream) 0 gm TOP BIDPRN PRN PRN Reason: Dry Skin Miscellaneous Medication (Pharmacy To Dose) 1 each PO .DAILY PRN PRN Reason: LAB Miscellaneous Medication (Pharmacy To Dose) 0 each IVPB .DAILY PRN PRN Reason: LABS Miscellaneous Medication (Phos-Nak) 1 pkt PO BID-WM [facility] Last Admin: 06/28/17 17:34 Dose: 1 pkt Ondansetron HCl (Zofran Odt) 4 mg PO Q6H PRN PRN Reason: Nausea/Vomiting Ondansetron HCl (Zofran) 4 mg IVP Q6H PRN PRN Reason: Nausea/Vomiting Pantoprazole Sodium (Protonix) 40 mg PO DAILY [facility] Last Admin: 06/28/17 09:07 Dose: 40 mg Saccharomyces Boulardii (Florastor) 250 mg PO DAILY [facility] Last Admin: 06/28/17 09:07 Dose: 250 mg Senna (Senokot) 2 tab PO HSPRN PRN PRN Reason: Constipation Sodium Chloride (Cross Nasal [place] 0.65%) 0 ml EA NARE QIDPRN PRN PRN Reason: Nasal Congestion Sodium Chloride (Flush - Normal Saline) 10 ml IVF Q12HR [facility] Last Admin: 06/28/17 09:23 Dose: Not Given Sodium Chloride (Flush - Normal Saline) 10 ml IVF PRN PRN PRN Reason: Saline Flush Sodium Hypochlorite (Dakin's Half Strength 0.25% Solution) 0 ml TOP DAILY [facility] Last Admin: 06/28/17 09:23 Dose: Not Given Zolpidem Tartrate (Ambien) 5 mg PO HSPRN PRN PRN Reason: Insomnia Last Admin: 06/27/17 20:34 Dose: 5 mg
--- NOTE | 2017-06-28 19:10 | PRG ---
DATE OF SERVICE: 06/28/2017 SUBJECTIVE: Ms. Briceño is doing well. No current symptoms present. She continues to have intermi ttent episodes of a wide complex tachycardia consistent with nonsustained VT. OBJECTIVE: VITAL SIGNS: Blood pressure 135/58, pulse 108, temperature 97.9. LUNGS: Clear to auscultation. HEART: Irregularly irregular. ABDOMEN: Soft, nontender and nondistended. EXTREMITIES: No edema. PERTINENT LABS: Hemoglobin 7.9. Creatinine 0.64. IMPRESSION: 1. Nonsustained ventricular tachycardia. 2. Atrial fibrillation. 3. Sepsis. RECOMMENDATIONS: I had a long discussion with the daughter today about how to proceed. Etiology of nonsustained VT may be ischemic driven. I discussed proceeding with a more aggressive approach lena sky more conservative approach. The patient is in need of 24-hour care and is not able to ambulate on her own. The family decided to proceed with medical therapy. At this point, would add amiodaron e at 400 mg 1 p.o. b.i.d. to try and suppress ventricular dysrhythmias. Continue anticoagulation danelle perdomo.
--- NOTE | 2017-06-28 23:59 | PRG ---
DATE OF SERVICE: 06/28/2017 SUBJECTIVE: Ms. Mirna Briceño is an 81-year-old -[place] female with anorexia and poor oral intake. She has seen me yesterday for possible PEG tube placement. However, the PEG tube placement has been canceled today, because of prolonged PT and INR. The PT is 133 and INR is 2.7. The patie nt has no visible bleeding. Oral intake remains poor. PHYSICAL EXAMINATION: GENERAL: Appears comfortable. VITAL SIGNS: Stable, afebrile, pulse is 108, blood pressure 130/58. CARDIOVASCULAR: Within normal limits. ABDOMEN: Soft to palpate. No organomegaly. No masses. LABORATORY DATA: From today shows PT is 33.7, INR 3.1. Chemistry panel: Sodium 141, potassium 3.5 , chloride 111, bicarbonate 28, BUN is 9, calcium 7.2, phosphorus 2.2, albumin 1.5. PLAN: We will cancel the PEG tube placement tomorrow. We will repeat the PT and INR tomorrow and i f INR is back to less than 2, we may consider PEG tube placement tomorrow.
[2017-06-29 04:54] LABS: #Eosinphils 0.1 thou/uL (0.0-0.7); #Lymphocytes 1.7 thou/uL (1.20-3.40); #Monocytes 0.6 thou/uL (0.11-0.59); %Basophils 0.2 % (0.0-1.0); %Eosinophils 1.7 % (0.0-10.0); %Lymphocytes 19.8 % (21.0-51.0); %Monocytes 6.9 % (0.0-10.0); Hematocrit 24.9 % (36.0-47.0); Mean Platelet Volume 7.3 fL (7.4-10.4); Red Blood Cell (RBC) Count 2.49 mill/uL (4.20-5.40); White Blood Cell (WBC) Count 8.4 thou/uL (4.8-10.8)
[2017-06-29 04:56] LABS: Prothrombin Time 37.5 SEC (12.0-14.7)
[2017-06-29 05:07] LABS: Anion Gap 6 mmol/L (10-20); BUN (Urea Nitrogen) 9 mg/dL (9.8-20.1); BUN/Creatinine Ratio 13.85; Calc. Creatinine Clearance 78 mL/min (70-130); Calcium 7.6 mg/dL (7.8-10.44); Carbon Dioxide 27 mmol/L (23-31); Chloride 110 mmol/L (98-107); Estimated GFR-MDRD Greater than 90; Magnesium 1.9 mg/dL (1.6-2.6); Phosphorus 2.6 mg/dL (2.3-4.7)
[2017-06-29] MEDS ORDERED: Phytonadione 10 MG/ML AMP PO SCH (08:00)
[2017-06-29] MEDS: Sodium Hypochlorite 0.25% Solution 480 ML BOT TOP SCH (08:52)
[2017-06-29] MEDS: Saccharomyces boulardii 250 MG CAP PO SCH (09:03)
[2017-06-29] MEDS: Acetaminophen 325 MG TAB PO PRN (09:03)
[2017-06-29] MEDS: Fluconazole In NaCl,Iso-Osm 100 MG in Premix Bag 1 BAG IVPB SCH ×2 (09:03)
[2017-06-29] MEDS: Megestrol Acetate 800 MG/20 ML UDCUP PO SCH (09:04)
--- NOTE | 2017-06-29 09:18 | PDOC.CTH ---
Cardiology Progress Note - Subjective No new changes overnight - Objective Vital Signs Temp Pulse Resp BP Pulse Ox 06/29/17 04:00 98.6 F 98 20 104/53 L 100 Admit Weight 167 lb 6 oz Weight 168 lb 9.6 oz 06/28/17 06/29/17 06/30/17 06:59 06:59 06:59 Intake Total 1702 2921 Output Total 530 475 Balance 1172 2446 - Physical Examination General/Neuro: NAD Neck: carotid US brisk, no JVD present Lungs: CTA, unlabored respirations Heart: PMI normal (IRR), other: Extremities: + femoral B - Telemetry Telemetry Rhythm: afib - Labs Result Diagrams: 06/29/17 04:30 06/29/17 04:30 Troponin/CKMB CK-MB (CK-2) 14.4 ng/mL (0-6.6) H* 06/22/17 00:25 Troponin I 0.036 ng/mL (< 0.028) H 06/22/17 17:45 Assessment/Plan - Assessment Assessment: 1. NSVT 2. Afib 3. Functional quadraplegia 4. Sepsis 5. Anemia Continue conservative treatment per family (I would agree) On amiodarone GI wells in progress No recurrent episodes
[2017-06-29] MEDS ORDERED: Voriconazole 50 MG TAB PO SCH (10:00)
[2017-06-29 10:32] LABS: Vancomycin, Trough 14.4 ug/mL
--- NOTE | 2017-06-29 10:46 | PDOC.PN ---
- Subjective Encounter Start Date: 06/29/17 Encounter Start Time: 08:30 Patient seen and examined. No new complaints. No overnight events - Objective Resuscitation Status: Resuscitation Status FULL:Full Resuscitation MAR Reviewed: Yes Vital Signs & Weight: Vital Signs (12 hours) Temp Pulse Resp BP Pulse Ox 06/29/17 08:00 98 F 95 18 114/56 L 99 06/29/17 04:00 98.6 F 98 20 104/53 L 100 Weight Admit Weight 167 lb 6 oz Weight 168 lb 9.6 oz I&O: 06/28/17 06/29/17 06/30/17 06:59 06:59 06:59 Intake Total 1702 2921 Output Total 530 475 Balance 1172 2446 Result Diagrams: 06/29/17 04:30 06/29/17 04:30 Additional Labs: Accuchecks 06/28/17 06/28/17 20:31 17:07 POC Glucose 116 H 110 EKG Reviewed by me: Yes (Tele Afib) Phys Exam - Physical Examination Constitutional: NAD Respiratory: no wheezing, no rhonchi Cardiovascular: no rub, irregular Gastrointestinal: soft, non-tender, positive bowel sounds Dx/Plan (1) Swallowing dysfunction Code(s): R13.10 - DYSPHAGIA, UNSPECIFIED Status: Acute Comment: with severe protein calorie malnutrition (2) NSVT (nonsustained ventricular tachycardia) Code(s): I47.2 - VENTRICULAR TACHYCARDIA Status: Acute Comment: Started on Amiodarone (3) Functional quadriplegia Code(s): R53.2 - FUNCTIONAL QUADRIPLEGIA Status: Acute Comment: due to DJD (4) Chronic atrial fibrillation Code(s): I48.2 - CHRONIC ATRIAL FIBRILLATION Status: Chronic Comment: Rate controlled, on Anticoag (5) Electrolyte abnormality Code(s): E87.8 - OTH DISORDERS OF ELECTROLYTE AND FLUID BALANCE, NEC Status: Acute (6) Other issues per previous notes - Plan cont current plan of care * GI/Cardio following * 1.25 mg Vit K PO x 1 * Cont to monitor * Started on Amiodarone * PEG tube once INR > 2 * Cont current meds as below * I d/w Dr Langford - he recommended skin biopsy for fungal culture for further isolation * DC Fluconazole * Start Voriconazole * Warfarin on hold * Change IVF to D51/2 NS with KCL due to hyperchloremia Review of Systems - Review of Systems Respiratory: negative: Cough, Dry, Shortness of Breath, Hemoptysis, SOB with Excertion, Pleuritic Pain, Sputum, Wheezing Cardiovascular: negative: Chest Pain, Palpitations, Orthopnea, Paroxysmal Noc. Dyspnea, Edema, Light Headedness, Other - Medications/Allergies Allergies/Adverse Reactions: Allergies Allergy/AdvReac Type Severity Reaction Status Date / Time Penicillins Allergy Verified 09/15/13 11:09 Medications: Current Medications Acetaminophen (Tylenol) 650 mg PO Q4H PRN PRN Reason: Headache/Fever or Pain Last Admin: 06/29/17 09:03 Dose: 650 mg Al Hydroxide/Mg Hydroxide (Maalox) 30 ml PO Q6H PRN PRN Reason: Heartburn or Indigestion Amiodarone HCl (Cordarone) 400 mg PO BID [facility] Last Admin: 06/29/17 09:02 Dose: 400 mg Artificial Tears (Tears Renewed 15ml Bottle) 0 drop EA EYE PRN PRN PRN Reason: Dry Eyes Bisacodyl (Dulcolax) 10 mg [place] Q24H PRN PRN Reason: Constipation Guaifenesin (Robitussin Sf) 200 mg PO Q4H PRN PRN Reason: Cough Hydralazine HCl (Apresoline) 10 mg SLOW IVP Q4H PRN PRN Reason: Systolic BP > 180 Dextrose/Sodium Chloride (D5 0.9% Ns) 1,000 mls @ 60 mls/hr IV .[id number] [facility] Last Admin: 06/28/17 23:50 Dose: 1,000 mls Loperamide HCl (Imodium) 2 mg PO PRN PRN PRN Reason: Diarrhea/Loose Stools Loratadine (Claritin) 10 mg PO DAILYPRN PRN PRN Reason: Sinus Symptoms Magnesium Hydroxide (Milk Of Magnesium) 30 ml PO DAILYPRN PRN PRN Reason: Constipation Megestrol Acetate (Megace) 800 mg PO DAILY [facility] Last Admin: 06/29/17 09:04 Dose: 800 mg Mineral Oil/White Petrolatum (Eucerin Cream) 0 gm TOP BIDPRN PRN PRN Reason: Dry Skin Miscellaneous Medication (Pharmacy To Dose) 1 each PO .DAILY PRN PRN Reason: LAB Miscellaneous Medication (Pharmacy To Dose) 0 each IVPB .DAILY PRN PRN Reason: LABS Miscellaneous Medication (Phos-Nak) 1 pkt PO BID-WM [facility] Last Admin: 06/29/17 09:03 Dose: 1 pkt Ondansetron HCl (Zofran Odt) 4 mg PO Q6H PRN PRN Reason: Nausea/Vomiting Ondansetron HCl (Zofran) 4 mg IVP Q6H PRN PRN Reason: Nausea/Vomiting Pantoprazole Sodium (Protonix) 40 mg PO DAILY [facility] Last Admin: 06/29/17 09:03 Dose: 40 mg Saccharomyces Boulardii (Florastor) 250 mg PO DAILY [facility] Last Admin: 06/29/17 09:03 Dose: 250 mg Senna (Senokot) 2 tab PO HSPRN PRN PRN Reason: Constipation Sodium Chloride ([place] Nasal [place] 0.65%) 0 ml EA NARE QIDPRN PRN PRN Reason: Nasal Congestion Sodium Chloride (Flush - Normal Saline) 10 ml IVF Q12HR [facility] Last Admin: 06/29/17 08:53 Dose: Not Given Sodium Chloride (Flush - Normal Saline) 10 ml IVF PRN PRN PRN Reason: Saline Flush Sodium Hypochlorite (Dakin's Half Strength 0.25% Solution) 0 ml TOP DAILY [facility] Last Admin: 06/29/17 08:52 Dose: Not Given Voriconazole (Vfend) 200 mg PO Q12HR [facility] Voriconazole (Vfend) 200 mg PO ONE [facility] Stop: 06/29/17 11:00 Zolpidem Tartrate (Ambien) 5 mg PO HSPRN PRN PRN Reason: Insomnia Last Admin: 06/27/17 20:34 Dose: 5 mg
[2017-06-29] MEDS: D5 1/2 NS w/20 mEq KCL 1,000 ML IV SCH (14:36)
[2017-06-29] MEDS: Acetaminophen/Codeine 120-12MG/5 ML UDCUP PO PRN ×2 (14:37→21:00)
[2017-06-29] MEDS ORDERED: Lidocaine 1% (PF) 30 ML VIAL ONE (14:53)
[2017-06-29] MEDS ORDERED: Lidocaine 1% w/Epinephrine 1:100K 20 ML VIAL FS SCH (15:00)
[2017-06-29] MEDS: Voriconazole 50 MG TAB PO SCH (20:47)
[2017-06-30 04:41] VITALS: BMI 30.7
[2017-06-30 05:05] LABS: #Eosinphils 0.2 thou/uL (0.0-0.7); #Monocytes 0.7 thou/uL (0.11-0.59); #Neutrophils 6.7 thou/uL (1.40-6.50); %Basophils 0.4 % (0.0-1.0); %Eosinophils 1.7 % (0.0-10.0); %Monocytes 7.3 % (0.0-10.0); Hematocrit 24.1 % (36.0-47.0); Mean Platelet Volume 7.6 fL (7.4-10.4); White Blood Cell (WBC) Count 9.6 thou/uL (4.8-10.8)
[2017-06-30 05:08] LABS: Prothrombin Time 41.7 SEC (12.0-14.7)
[2017-06-30] MEDS ORDERED: Phytonadione 10 MG/ML AMP IM SCH (05:30)
[2017-06-30 05:32] LABS: Anion Gap 7 mmol/L (10-20); BUN (Urea Nitrogen) 8 mg/dL (9.8-20.1); BUN/Creatinine Ratio 11.76; Calc. Creatinine Clearance 76 mL/min (70-130); Calcium 7.7 mg/dL (7.8-10.44); Carbon Dioxide 25 mmol/L (23-31); Chloride 111 mmol/L (98-107); Estimated GFR-MDRD Greater than 90; Phosphorus 2.6 mg/dL (2.3-4.7)
[2017-06-30] MEDS: Sodium Hypochlorite 0.25% Solution 480 ML BOT TOP SCH (09:01)
[2017-06-30] MEDS: Saccharomyces boulardii 250 MG CAP PO SCH (09:13)
[2017-06-30] MEDS: Voriconazole 50 MG TAB PO SCH ×2 (09:14→20:22)
[2017-06-30] MEDS: Megestrol Acetate 800 MG/20 ML UDCUP PO SCH (09:14)
[2017-06-30] MEDS: D5 1/2 NS w/20 mEq KCL 1,000 ML IV SCH (09:14)
[2017-06-30 09:45] LABS: Prothrombin Time 41.3 SEC (12.0-14.7)
--- NOTE | 2017-06-30 10:22 | PDOC.PN ---
- Subjective Encounter Start Date: 06/30/17 Encounter Start Time: 09:30 Patient seen and examined. No new complaints. No overnight events. - Objective Resuscitation Status: Resuscitation Status FULL:Full Resuscitation MAR Reviewed: Yes Vital Signs & Weight: Vital Signs (12 hours) Temp Pulse Resp BP Pulse Ox 06/30/17 08:00 99 F 96 18 100 06/30/17 07:24 99 F 96 18 132/65 99 06/30/17 04:00 99.0 F 98 20 129/60 100 Weight Admit Weight 167 lb 6 oz Weight 168 lb 4.8 oz I&O: 06/29/17 06/30/17 07/01/17 06:59 06:59 06:59 Intake Total 2921 2200 Output Total 475 300 Balance 2446 1900 Result Diagrams: 06/30/17 04:50 06/30/17 04:50 Additional Labs: Accuchecks 06/29/17 06/28/17 06/27/17 20:38 11:37 17:36 POC Glucose 143 H 98 105 06/27/17 06/27/17 06/25/17 12:01 08:45 21:08 POC Glucose 76 81 72 06/25/17 12:06 POC Glucose 80 EKG Reviewed by me: Yes (Tele Afib) Phys Exam - Physical Examination Constitutional: NAD Respiratory: no wheezing, no rhonchi Cardiovascular: no rub, irregular Gastrointestinal: soft, non-tender, positive bowel sounds Musculoskeletal: no edema Dx/Plan (1) Infected ulcer of skin Code(s): L98.499 - NON-PRESSURE CHRONIC ULCER OF SKIN OF SITES W UNSP SEVERITY; L08.9 - LOCAL INFECTION OF THE SKIN AND SUBCUTANEOUS TISSUE, UNSP Status: Acute Comment: fungal infection. Will need repeat biopsy from abd wall ulcer for fungal culture - once INR improves (2) Swallowing dysfunction Code(s): R13.10 - DYSPHAGIA, UNSPECIFIED Status: Acute Comment: with severe protein calorie malnutrition (3) NSVT (nonsustained ventricular tachycardia) Code(s): I47.2 - VENTRICULAR TACHYCARDIA Status: Acute Comment: Started on Amiodarone - please see Cardiology note from 06/30 for Amiodarone taper (4) Functional quadriplegia Code(s): R53.2 - FUNCTIONAL QUADRIPLEGIA Status: Acute Comment: due to DJD (5) Chronic atrial fibrillation Code(s): I48.2 - CHRONIC ATRIAL FIBRILLATION Status: Chronic Comment: Rate controlled, on Anticoag (6) Electrolyte abnormality Code(s): E87.8 - OTH DISORDERS OF ELECTROLYTE AND FLUID BALANCE, NEC Status: Acute (7) Other issues per previous notes - Plan cont current plan of care, duran catheter, continue antibiotics, PT/OT, social group worker * Cont wound care * INR in AM * Cont to monitor * GI/Cardio following * PEG tube once INR < 2 * Cont current meds as below * Dr Langford recommended skin biopsy for fungal culture for further isolation * Start Voriconazole * Warfarin on hold * Cont current IVF * Cardio recommended to dc Tele Review of Systems - Medications/Allergies Allergies/Adverse Reactions: Allergies Allergy/AdvReac Type Severity Reaction Status Date / Time Penicillins Allergy Verified 09/15/13 11:09 Medications: Current Medications Acetaminophen (Tylenol) 650 mg PO Q4H PRN PRN Reason: Headache/Fever or Pain Last Admin: 06/29/17 09:03 Dose: 650 mg Acetaminophen/Codeine Phosphate (Tylenol/Codeine Elixir) 5 ml PO Q6H PRN PRN Reason: Pain Last Admin: 06/29/17 21:00 Dose: 5 ml Al Hydroxide/Mg Hydroxide (Maalox) 30 ml PO Q6H PRN PRN Reason: Heartburn or Indigestion Amiodarone HCl (Cordarone) 400 mg PO BID [facility] Last Admin: 06/30/17 09:13 Dose: 400 mg Artificial Tears (Tears Renewed 15ml Bottle) 0 drop EA EYE PRN PRN PRN Reason: Dry Eyes Bisacodyl (Dulcolax) 10 mg [place] Q24H PRN PRN Reason: Constipation Guaifenesin (Robitussin Sf) 200 mg PO Q4H PRN PRN Reason: Cough Hydralazine HCl (Apresoline) 10 mg SLOW IVP Q4H PRN PRN Reason: Systolic BP > 180 Potassium Chloride/Dextrose/Sod Cl (D5 1/2 Ns W/20 Meq Kcl) 1,000 mls @ 50 mls/ hr IV .Q20H [facility] Last Admin: 06/30/17 09:14 Dose: 1,000 mls Loperamide HCl (Imodium) 2 mg PO PRN PRN PRN Reason: Diarrhea/Loose Stools Loratadine (Claritin) 10 mg PO DAILYPRN PRN PRN Reason: Sinus Symptoms Magnesium Hydroxide (Milk Of Magnesium) 30 ml PO DAILYPRN PRN PRN Reason: Constipation Megestrol Acetate (Megace) 800 mg PO DAILY [facility] Last Admin: 06/30/17 09:14 Dose: 800 mg Mineral Oil/White Petrolatum (Eucerin Cream) 0 gm TOP BIDPRN PRN PRN Reason: Dry Skin Miscellaneous Medication (Pharmacy To Dose) 1 each PO .DAILY PRN PRN Reason: LAB Miscellaneous Medication (Phos-Nak) 1 pkt PO BID-WM [facility] Last Admin: 06/30/17 09:14 Dose: 1 pkt Ondansetron HCl (Zofran Odt) 4 mg PO Q6H PRN PRN Reason: Nausea/Vomiting Ondansetron HCl (Zofran) 4 mg IVP Q6H PRN PRN Reason: Nausea/Vomiting Pantoprazole Sodium (Protonix) 40 mg PO DAILY [facility] Last Admin: 06/30/17 09:14 Dose: 40 mg Saccharomyces Boulardii (Florastor) 250 mg PO DAILY [facility] Last Admin: 06/30/17 09:13 Dose: 250 mg Senna (Senokot) 2 tab PO HSPRN PRN PRN Reason: Constipation Sodium Chloride ([place] Nasal [place] 0.65%) 0 ml EA NARE QIDPRN PRN PRN Reason: Nasal Congestion Sodium Chloride (Flush - Normal Saline) 10 ml IVF Q12HR [facility] Last Admin: 06/30/17 09:15 Dose: Not Given Sodium Chloride (Flush - Normal Saline) 10 ml IVF PRN PRN PRN Reason: Saline Flush Sodium Hypochlorite (Dakin's Half Strength 0.25% Solution) 0 ml TOP DAILY [facility] Last Admin: 06/30/17 09:01 Dose: Not Given Voriconazole (Vfend) 200 mg PO Q12HR [facility] Last Admin: 06/30/17 09:14 Dose: 200 mg
[2017-06-30] MEDS: Acetaminophen/Codeine 120-12MG/5 ML UDCUP PO PRN ×2 (11:15→20:20)
--- NOTE | 2017-06-30 12:09 | PDOC.CTH ---
Cardiology Progress Note - Subjective No new complaints. Rythm stable overnight - ROS not able to obtain ROS - Objective Vital Signs Temp Pulse Pulse Resp BP BP BP 06/30/17 09:43 92 135/75 129/64 06/30/17 08:00 99 F 96 18 06/30/17 07:24 99 F 96 18 132/65 06/30/17 04:00 99.0 F 98 20 129/60 Pulse Ox 06/30/17 09:43 06/30/17 08:00 100 06/30/17 07:24 99 06/30/17 04:00 100 Admit Weight 167 lb 6 oz Weight 168 lb 4.8 oz 06/29/17 06/30/17 07/01/17 06:59 06:59 06:59 Intake Total 2921 2200 Output Total 475 300 Balance 2446 1900 - Physical Examination General/Neuro: NAD Neck: carotid US brisk, no JVD present Lungs: CTA, unlabored respirations Heart: other: (IRR) Abdomen: no HSM, NT/ND, soft Extremities: + femoral B - Telemetry Telemetry Rhythm: afib, No episodes of NSV - Labs Result Diagrams: 06/30/17 04:50 06/30/17 04:50 Troponin/CKMB CK-MB (CK-2) 14.4 ng/mL (0-6.6) H* 06/22/17 00:25 Troponin I 0.036 ng/mL (< 0.028) H 06/22/17 17:45 - Assessment/Plan 1. NSVT 2. Afib 3. Functional quadraplegia 4. Sepsis 5. Anemia CV status stable. Continue amiodarone 400mg BID for 5 days then decrease to 400mg qam for 1 month then decrease to 200mg QAM. Pt with no rythm issues noted over last 4 days. Ok from my standpoint to tranfser to medical.
[2017-06-30] MEDS ORDERED: Acetaminophen/Codeine 120-12MG/5 ML UDCUP PO SCH (13:15)
[2017-06-30] MEDS ORDERED: Phytonadione 10 MG/ML AMP PO SCH (16:00)
--- NOTE | 2017-06-30 22:55 | PRG ---
DATE OF SERVICE: 06/30/2017 HISTORY OF PRESENT ILLNESS: This is an 81-year-old black female hospitalized with altered mental st atus, poor oral intake . The patient's PT/INR is very much prolonged. She is off Coumadin for the last 72 hours. The last dose of Coumadin was on Tuesday. Interestingly, her PT/INR keeps going up. The plan was for EGD and PEG tube placement and which could not be done because of prolonged PT and INR. The labs from today, PT is 41.3 and INR is 4. On Tuesday, it was 30.2 and 2.7 respectively. Although, she has stopped taking Coumadin over the last 4 days and the PT/INR is not coming down. PHYSICAL EXAMINATION: GENERAL: The patient is an obese, black female, appears comfortable. She is in no distress. VITAL SIGNS: Stable. Temperature 98.2 degrees Fahrenheit, pulse is 91, blood pressure 128/63. CARDIOVASCULAR: First and second heart sounds normal. LUNGS: Clear to auscultation. ABDOMEN: Soft and nontender. She does have a soft tissue mass over the right lower quadrant. PLAN: Vitamin K today. We will repeat PT/INR tomorrow. If the PT/INR drop down to less than 2, we will consider PEG tube placement.
[2017-07-01] MEDS: Acetaminophen/Codeine 120-12MG/5 ML UDCUP PO PRN ×2 (01:48→09:36)
[2017-07-01] MEDS: D5 1/2 NS w/20 mEq KCL 1,000 ML IV SCH (05:02)
[2017-07-01 05:13] LABS: Prothrombin Time 29.6 SEC (12.0-14.7)
[2017-07-01] MEDS: Saccharomyces boulardii 250 MG CAP PO SCH (09:13)
[2017-07-01] MEDS: Megestrol Acetate 800 MG/20 ML UDCUP PO SCH (09:14)
[2017-07-01] MEDS: Sodium Hypochlorite 0.25% Solution 480 ML BOT TOP SCH (09:25)
[2017-07-01] MEDS: Voriconazole 50 MG TAB PO SCH ×2 (09:39→20:27)
[2017-07-01] MEDS: Acetaminophen 325 MG TAB PO PRN ×2 (11:44→17:16)
--- NOTE | 2017-07-01 15:43 | PDOC.PN ---
- Subjective Encounter Start Date: 07/01/17 Encounter Start Time: 11:15 Subjective: awake, not in distress - Objective Resuscitation Status: Resuscitation Status FULL:Full Resuscitation MAR Reviewed: Yes Vital Signs & Weight: Vital Signs (12 hours) Temp Pulse Resp BP Pulse Ox 07/01/17 13:38 98.4 F 75 12 99/55 L 100 07/01/17 12:30 98.6 F 86 18 93/55 L 98 07/01/17 10:00 114/61 07/01/17 09:20 99.0 F 88 18 07/01/17 08:00 99.0 F 88 18 99/52 L 95 07/01/17 05:00 98.8 F 83 18 120/67 95 Weight Admit Weight 167 lb 6 oz Weight 168 lb 4.8 oz I&O: 06/30/17 07/01/17 07/02/17 06:59 06:59 06:59 Intake Total 2200 Output Total 300 250 Balance 1900 -250 Result Diagrams: 06/30/17 04:50 06/30/17 04:50 Additional Labs: Accuchecks 07/01/17 06/30/17 06/30/17 04:29 20:37 09:34 POC Glucose 88 139 H 85 06/29/17 09:00 POC Glucose 94 Phys Exam - Physical Examination HEENT: PERRLA, sclera anicteric Neck: no JVD, supple Respiratory: no wheezing, no rales Cardiovascular: RRR, no significant murmur Gastrointestinal: soft, no distention, positive bowel sounds has multiple nodules over ant abd wall in lower quadrants Musculoskeletal: pulses present has severe osteoarthritis of knee with angulation Neurological: non-focal, moves all 4 limbs Dx/Plan (1) Coagulopathy Status: Acute Comment: off coumadin (2) Decubital ulcer Code(s): L89.90 - PRESSURE ULCER OF UNSPECIFIED SITE, UNSPECIFIED STAGE Status : Chronic (3) Functional quadriplegia Code(s): R53.2 - FUNCTIONAL QUADRIPLEGIA Status: Acute Comment: due to DJD (4) Infected ulcer of skin Code(s): L98.499 - NON-PRESSURE CHRONIC ULCER OF SKIN OF SITES W UNSP SEVERITY; L08.9 - LOCAL INFECTION OF THE SKIN AND SUBCUTANEOUS TISSUE, UNSP Status: Acute Comment: fungal infection. Will need repeat biopsy from abd wall ulcer for fungal culture - once INR improves (5) NSVT (nonsustained ventricular tachycardia) Code(s): I47.2 - VENTRICULAR TACHYCARDIA Status: Acute Comment: (6) Physical deconditioning Code(s): R53.81 - OTHER MALAISE Status: Chronic (7) Swallowing dysfunction Code(s): R13.10 - DYSPHAGIA, UNSPECIFIED Status: Acute Comment: with severe protein calorie malnutrition (8) Afib Code(s): I48.91 - UNSPECIFIED ATRIAL FIBRILLATION Status: Chronic Qualifiers: Atrial fibrillation type: chronic Qualified Code(s): I48.2 - Chronic atrial fibrillation (9) HTN (hypertension) Code(s): I10 - ESSENTIAL (PRIMARY) HYPERTENSION Status: Chronic Qualifiers: Hypertension type: essential hypertension Comment: Stable (10) FTT (failure to thrive) in adult Status: Chronic - Plan is on voriconazole 200mg bid -: amiodarone for afib -: inr is 2.7, for peg and repeat skin bx when less than 2 -: h/h in am, may transfuse if less than 7g -: prognosis guarded with very poor functional status and multiple med condn * . Review of Systems - Medications/Allergies Allergies/Adverse Reactions: Allergies Allergy/AdvReac Type Severity Reaction Status Date / Time Penicillins Allergy Verified 09/15/13 11:09 Medications: Current Medications Acetaminophen (Tylenol) 650 mg PO Q4H PRN PRN Reason: Headache/Fever or Pain Last Admin: 07/01/17 11:44 Dose: 650 mg Acetaminophen/Codeine Phosphate (Tylenol/Codeine Elixir) 5 ml PO Q6H PRN PRN Reason: Pain Last Admin: 07/01/17 09:36 Dose: 5 ml Al Hydroxide/Mg Hydroxide (Maalox) 30 ml PO Q6H PRN PRN Reason: Heartburn or Indigestion Amiodarone HCl (Cordarone) 400 mg PO BID [facility] Last Admin: 07/01/17 09:13 Dose: 400 mg Amiodarone HCl (Cordarone) 400 mg PO DAILY [facility] Stop: 08/04/17 21:00 Artificial Tears (Tears Renewed 15ml Bottle) 0 drop EA EYE PRN PRN PRN Reason: Dry Eyes Bisacodyl (Dulcolax) 10 mg [place] Q24H PRN PRN Reason: Constipation Guaifenesin (Robitussin Sf) 200 mg PO Q4H PRN PRN Reason: Cough Hydralazine HCl (Apresoline) 10 mg SLOW IVP Q4H PRN PRN Reason: Systolic BP > 180 Potassium Chloride/Dextrose/Sod Cl (D5 1/2 Ns W/20 Meq Kcl) 1,000 mls @ 50 mls/ hr IV .Q20H [facility] Last Admin: 07/01/17 05:02 Dose: 1,000 mls Loperamide HCl (Imodium) 2 mg PO PRN PRN PRN Reason: Diarrhea/Loose Stools Loratadine (Claritin) 10 mg PO DAILYPRN PRN PRN Reason: Sinus Symptoms Magnesium Hydroxide (Milk Of Magnesium) 30 ml PO DAILYPRN PRN PRN Reason: Constipation Megestrol Acetate (Megace) 800 mg PO DAILY [facility] Last Admin: 07/01/17 09:14 Dose: 800 mg Mineral Oil/White Petrolatum (Eucerin Cream) 0 gm TOP BIDPRN PRN PRN Reason: Dry Skin Miscellaneous Medication (Pharmacy To Dose) 1 each PO .DAILY PRN PRN Reason: LAB Miscellaneous Medication (Phos-Nak) 1 pkt PO BID-WM [facility] Last Admin: 07/01/17 09:14 Dose: 1 pkt Ondansetron HCl (Zofran Odt) 4 mg PO Q6H PRN PRN Reason: Nausea/Vomiting Ondansetron HCl (Zofran) 4 mg IVP Q6H PRN PRN Reason: Nausea/Vomiting Pantoprazole Sodium (Protonix) 40 mg PO DAILY [facility] Last Admin: 07/01/17 09:13 Dose: 40 mg Saccharomyces Boulardii (Florastor) 250 mg PO DAILY [facility] Last Admin: 07/01/17 09:13 Dose: 250 mg Senna (Senokot) 2 tab PO HSPRN PRN PRN Reason: Constipation Sodium Chloride ([place] Nasal [place] 0.65%) 0 ml EA NARE QIDPRN PRN PRN Reason: Nasal Congestion Sodium Chloride (Flush - Normal Saline) 10 ml IVF Q12HR [facility] Last Admin: 07/01/17 09:17 Dose: Not Given Sodium Chloride (Flush - Normal Saline) 10 ml IVF PRN PRN PRN Reason: Saline Flush Sodium Hypochlorite (Dakin's Half Strength 0.25% Solution) 0 ml TOP DAILY [facility] Last Admin: 07/01/17 09:25 Dose: Not Given Voriconazole (Vfend) 200 mg PO Q12HR [facility] Last Admin: 07/01/17 09:39 Dose: 200 mg
[2017-07-01] MEDS ORDERED: Phytonadione 10 MG/ML AMP PO SCH (17:00)
[2017-07-01] MEDS ORDERED: Phytonadione 10 MG/ML AMP SC SCH (17:00)
--- NOTE | 2017-07-01 23:21 | PRG ---
DATE OF SERVICE: 07/01/2017 SUBJECTIVE: This is an 81-year-old black female with poor oral intake and anorexia. The patient is . The plan was being made to put a PEG tube a couple of days ago; however, it could not be do ne because of prolonged INR and PT. She has been off the Coumadin at least for 4 days. She receive d vitamin K . Her PT/INR is getting better today. So we are now back to a level where I feel comfortable putting the PEG tube. The PT today shows 29.6 dropping from 41.3, INR is 2.7. PHYSICAL EXAMINATION: GENERAL: Appears comfortable. VITAL SIGNS: Stable. CARDIOVASCULAR: Within normal limits. ABDOMEN: Soft to palpate. No organomegaly. No tenderness. No masses. PLAN: Repeat another dose of vitamin K today and repeat PT/INR tomorrow. If the INR is less than 2 , we will plan for EGD and PEG tube placement over the weekend. I did talk to Radha, who is the glenna ent's daughter, and she wanted to have a PEG tube placement before discharge.
[2017-07-02] MEDS: D5 1/2 NS w/20 mEq KCL 1,000 ML IV SCH ×2 (00:09→07:20)
[2017-07-02 05:32] LABS: #Eosinphils 0.1 thou/uL (0.0-0.7); #Lymphocytes 2.2 thou/uL (1.20-3.40); #Monocytes 0.6 thou/uL (0.11-0.59); #Neutrophils 5.9 thou/uL (1.40-6.50); %Basophils 0.4 % (0.0-1.0); %Eosinophils 1.7 % (0.0-10.0); Hematocrit 21.4 % (36.0-47.0); Mean Platelet Volume 7.3 fL (7.4-10.4); Red Blood Cell (RBC) Count 2.14 mill/uL (4.20-5.40); White Blood Cell (WBC) Count 8.9 thou/uL (4.8-10.8)
[2017-07-02 05:37] LABS: Prothrombin Time 22.2 SEC (12.0-14.7)
[2017-07-02 05:38] LABS: PTT 54.6 SEC (22.9-36.1)
[2017-07-02 05:53] LABS: ALT (SGPT) 11 U/L (8-55); AST (SGOT) 21 U/L (5-34); Alkaline Phosphatase 101 U/L (40-150); Anion Gap 6 mmol/L (10-20); BUN (Urea Nitrogen) 13 mg/dL (9.8-20.1); Bilirubin, Total 0.5 mg/dL (0.2-1.2); Calc. Creatinine Clearance 68 mL/min (70-130); Calcium 7.8 mg/dL (7.8-10.44); Carbon Dioxide 25 mmol/L (23-31); Chloride 110 mmol/L (98-107); Estimated GFR-MDRD 88; Protein, Total 5.4 g/dL (6.0-8.3)
[2017-07-02] MEDS ORDERED: D5 1/2 NS w/20 mEq KCL 1,000 ML IV SCH (05:55)
[2017-07-02] MEDS ORDERED: Levofloxacin 500 mg/D5W 100 ml Premix Bag ONE (09:24)
[2017-07-02] MEDS ORDERED: Clindamycin/D5W 900 mg/50 ml Premix Bag ONE (09:24)
[2017-07-02] MEDS ORDERED: PHENYLEPHRINE-NS 100 MCG/ML 10 ML SYRINGE ONE (09:51)
[2017-07-02] MEDS ORDERED: Propofol 200 MG/20 ML VIAL ONE (09:51)
[2017-07-02] MEDS: Saccharomyces boulardii 250 MG CAP PO SCH (11:06)
[2017-07-02] MEDS: Megestrol Acetate 800 MG/20 ML UDCUP PO SCH (11:06)
[2017-07-02] MEDS: Sodium Hypochlorite 0.25% Solution 480 ML BOT TOP SCH (11:07)
[2017-07-02] MEDS: Voriconazole 50 MG TAB PO SCH ×2 (11:07→22:41)
--- NOTE | 2017-07-02 13:44 | PDOC.PN ---
- Subjective Encounter Start Date: 07/02/17 Encounter Start Time: 08:00 Subjective: no sob, awake, not in distress - Objective Resuscitation Status: Resuscitation Status FULL:Full Resuscitation MAR Reviewed: Yes Vital Signs & Weight: Vital Signs (12 hours) Temp Pulse Resp BP Pulse Ox 07/02/17 10:45 98.2 F 68 18 93/61 99 07/02/17 08:00 98.8 F 78 18 108/66 97 07/02/17 06:38 98.6 F 81 20 111/66 98 07/02/17 05:17 99.2 F 80 18 95/41 L 99 Weight Admit Weight 167 lb 6 oz Weight 168 lb 4.8 oz I&O: 07/01/17 07/02/17 07/03/17 06:59 06:59 06:59 Intake Total 616 Output Total 250 425 Balance -250 191 Result Diagrams: 07/02/17 05:05 07/02/17 05:05 Additional Labs: Accuchecks 07/02/17 07/01/17 10:57 21:13 POC Glucose 68 L 111 H Phys Exam - Physical Examination HEENT: moist MMs, sclera anicteric Neck: no JVD, supple Respiratory: no wheezing, no rales Cardiovascular: RRR, no significant murmur Gastrointestinal: soft, no distention, positive bowel sounds Musculoskeletal: no edema, pulses present Neurological: non-focal, moves all 4 limbs Dx/Plan (1) Coagulopathy Status: Acute Comment: off coumadin (2) Decubital ulcer Code(s): L89.90 - PRESSURE ULCER OF UNSPECIFIED SITE, UNSPECIFIED STAGE Status : Chronic (3) Functional quadriplegia Code(s): R53.2 - FUNCTIONAL QUADRIPLEGIA Status: Acute Comment: due to DJD (4) Infected ulcer of skin Code(s): L98.499 - NON-PRESSURE CHRONIC ULCER OF SKIN OF SITES W UNSP SEVERITY; L08.9 - LOCAL INFECTION OF THE SKIN AND SUBCUTANEOUS TISSUE, UNSP Status: Acute Comment: fungal infection. Will need repeat biopsy from abd wall ulcer for fungal culture - once INR improves (5) NSVT (nonsustained ventricular tachycardia) Code(s): I47.2 - VENTRICULAR TACHYCARDIA Status: Acute Comment: (6) Physical deconditioning Code(s): R53.81 - OTHER MALAISE Status: Chronic (7) Swallowing dysfunction Code(s): R13.10 - DYSPHAGIA, UNSPECIFIED Status: Acute Comment: with severe protein calorie malnutrition (8) Afib Code(s): I48.91 - UNSPECIFIED ATRIAL FIBRILLATION Status: Chronic Qualifiers: Atrial fibrillation type: chronic Qualified Code(s): I48.2 - Chronic atrial fibrillation (9) HTN (hypertension) Code(s): I10 - ESSENTIAL (PRIMARY) HYPERTENSION Status: Chronic Qualifiers: Hypertension type: essential hypertension Comment: Stable (10) FTT (failure to thrive) in adult Status: Chronic - Plan transfuse 2 u prbc -: for likely egd today, inr is 1.9 -: alb is 1.4, poor prognosis -: cxr today, bnp is 653 -: is on voriconazole for suspected abd ulcers sec to fungus * . Review of Systems - Medications/Allergies Allergies/Adverse Reactions: Allergies Allergy/AdvReac Type Severity Reaction Status Date / Time Penicillins Allergy Verified 09/15/13 11:09 Medications: Current Medications Acetaminophen (Tylenol) 650 mg PO Q4H PRN PRN Reason: Headache/Fever or Pain Last Admin: 07/01/17 17:16 Dose: 650 mg Acetaminophen/Codeine Phosphate (Tylenol/Codeine Elixir) 5 ml PO Q6H PRN PRN Reason: Pain Last Admin: 07/01/17 09:36 Dose: 5 ml Al Hydroxide/Mg Hydroxide (Maalox) 30 ml PO Q6H PRN PRN Reason: Heartburn or Indigestion Amiodarone HCl (Cordarone) 400 mg PO BID [facility] Last Admin: 07/02/17 11:06 Dose: Not Given Amiodarone HCl (Cordarone) 400 mg PO DAILY [facility] Stop: 08/04/17 21:00 Artificial Tears (Tears Renewed 15ml Bottle) 0 drop EA EYE PRN PRN PRN Reason: Dry Eyes Bisacodyl (Dulcolax) 10 mg [place] Q24H PRN PRN Reason: Constipation Guaifenesin (Robitussin Sf) 200 mg PO Q4H PRN PRN Reason: Cough Hydralazine HCl (Apresoline) 10 mg SLOW IVP Q4H PRN PRN Reason: Systolic BP > 180 Potassium Chloride/Dextrose/Sod Cl (D5 1/2 Ns W/20 Meq Kcl) 1,000 mls @ 30 mls/ hr IV .Q24H [facility] Last Admin: 07/02/17 07:20 Dose: 1,000 mls Loperamide HCl (Imodium) 2 mg PO PRN PRN PRN Reason: Diarrhea/Loose Stools Loratadine (Claritin) 10 mg PO DAILYPRN PRN PRN Reason: Sinus Symptoms Magnesium Hydroxide (Milk Of Magnesium) 30 ml PO DAILYPRN PRN PRN Reason: Constipation Megestrol Acetate (Megace) 800 mg PO DAILY [facility] Last Admin: 07/02/17 11:06 Dose: Not Given Mineral Oil/White Petrolatum (Eucerin Cream) 0 gm TOP BIDPRN PRN PRN Reason: Dry Skin Miscellaneous Medication (Pharmacy To Dose) 1 each PO .DAILY PRN PRN Reason: LAB Miscellaneous Medication (Phos-Nak) 1 pkt PO BID-WM [facility] Last Admin: 07/02/17 11:06 Dose: Not Given Ondansetron HCl (Zofran Odt) 4 mg PO Q6H PRN PRN Reason: Nausea/Vomiting Ondansetron HCl (Zofran) 4 mg IVP Q6H PRN PRN Reason: Nausea/Vomiting Pantoprazole Sodium (Protonix) 40 mg PO DAILY [facility] Last Admin: 07/02/17 11:06 Dose: Not Given Saccharomyces Boulardii (Florastor) 250 mg PO DAILY [facility] Last Admin: 07/02/17 11:06 Dose: Not Given Senna (Senokot) 2 tab PO HSPRN PRN PRN Reason: Constipation Sodium Chloride ([place] Nasal [place] 0.65%) 0 ml EA NARE QIDPRN PRN PRN Reason: Nasal Congestion Sodium Chloride (Flush - Normal Saline) 10 ml IVF Q12HR [facility] Last Admin: 07/02/17 11:07 Dose: 10 ml Sodium Chloride (Flush - Normal Saline) 10 ml IVF PRN PRN PRN Reason: Saline Flush Sodium Hypochlorite (Dakin's Half Strength 0.25% Solution) 0 ml TOP DAILY [facility] Last Admin: 07/02/17 11:07 Dose: Not Given Voriconazole (Vfend) 200 mg PO Q12HR [facility] Last Admin: 07/02/17 11:07 Dose: Not Given
[2017-07-02] MEDS: Acetaminophen/Codeine 120-12MG/5 ML UDCUP PO PRN ×2 (14:51→22:21)
--- NOTE | 2017-07-02 15:06 | RAD ---
SINGLE VIEW OF CHEST: Date: 07/02/17 COMPARISON: 06/25/17. HISTORY: Shortness of breath. FINDINGS: Single view of the chest shows an enlarged cardiomediastinal silhouette with atherosclerotic calcifi cations in the aorta. The central venous catheter is unchanged in position. There is obscuring of th e left hemidiaphragm which may be secondary to a left pleural effusion. There also appears to be a s mall right pleural effusion. IMPRESSION: 1. Small bilateral pleural effusions. 2. Cardiomegaly. POS: [facility]
--- NOTE | 2017-07-02 16:38 | OP ---
PREOPERATIVE DIAGNOSIS: Failure thrive. POSTOPERATIVE DIAGNOSIS: Esophagogastroduodenoscopy with PEG tube placed by Ponsky-pull technique. ANESTHESIA: TIVA, clindamycin, and Cipro given for prophylaxis. PROCEDURE IN DETAIL: After the patient's family was informed of the risks, benefits, possible compl ications of endoscopy and PEG tube placement including perforation, bleeding, infection, aspiration, informed consent was obtained. The patient brought to endoscopy suite where she was sedated. Once she was comfortable, a bite block was placed in the incisural orifice. The endoscope was advanced through the esophagus, stomach, and second and third portion of duodenum. This examination was norm al. Forward and retroflexed views in the stomach were normal. Adequate place for PEG tube placemen t was identified by transillumination and finger indentation, and a PEG tube was placed by Ponsky-pu ll technique. A second look revealed good placement. Blood loss was less than 5 mL. The scope was then removed and the patient was brought to recovery room in stable condition.
[2017-07-03 05:28] LABS: #Eosinphils 0.1 thou/uL (0.0-0.7); #Lymphocytes 2.7 thou/uL (1.20-3.40); #Monocytes 0.8 thou/uL (0.11-0.59); #Neutrophils 7.9 thou/uL (1.40-6.50); %Basophils 0.2 % (0.0-1.0); %Eosinophils 1.1 % (0.0-10.0); %Monocytes 7.1 % (0.0-10.0); Hematocrit 25.8 % (36.0-47.0); Mean Platelet Volume 7.3 fL (7.4-10.4); Red Blood Cell (RBC) Count 2.65 mill/uL (4.20-5.40); White Blood Cell (WBC) Count 11.5 thou/uL (4.8-10.8)
[2017-07-03 05:53] LABS: PTT 51.7 SEC (22.9-36.1); Prothrombin Time 22.5 SEC (12.0-14.7)
[2017-07-03] MEDS: Megestrol Acetate 800 MG/20 ML UDCUP PO SCH (08:31)
[2017-07-03] MEDS: Saccharomyces boulardii 250 MG CAP PO SCH (08:31)
[2017-07-03] MEDS: D5 1/2 NS w/20 mEq KCL 1,000 ML IV SCH (08:39)
[2017-07-03] MEDS: Sodium Hypochlorite 0.25% Solution 480 ML BOT TOP SCH (08:41)
[2017-07-03] MEDS: Voriconazole 50 MG TAB PO SCH ×2 (09:54→20:10)
[2017-07-03] MEDS: Acetaminophen/Codeine 120-12MG/5 ML UDCUP PO PRN ×2 (11:31→22:23)
--- NOTE | 2017-07-03 11:36 | PDOC.PN ---
- Subjective Encounter Start Date: 07/03/17 Encounter Start Time: 10:15 Subjective: awake, not in distress - Objective Resuscitation Status: Resuscitation Status FULL:Full Resuscitation MAR Reviewed: Yes Vital Signs & Weight: Vital Signs (12 hours) Temp Pulse Resp BP Pulse Ox 07/03/17 08:00 98.9 F 77 16 99 07/03/17 07:45 98.9 F 77 16 92/55 L 99 07/03/17 04:00 99 F 78 18 95/53 L 99 07/03/17 00:00 98.6 F 86 18 114/54 L 99 Weight Admit Weight 167 lb 6 oz Weight 168 lb 4.8 oz I&O: 07/02/17 07/03/17 07/04/17 06:59 06:59 06:59 Intake Total 616 120 Output Total 425 650 Balance 191 -650 120 Result Diagrams: 07/03/17 05:00 07/02/17 05:05 Additional Labs: Accuchecks 07/03/17 07/03/17 07/02/17 11:05 04:43 21:30 POC Glucose 84 105 100 07/02/17 07/02/17 15:25 10:57 POC Glucose 61 L 68 L Phys Exam - Physical Examination HEENT: PERRLA, moist MMs Neck: no JVD, supple Respiratory: no wheezing, no rales Cardiovascular: RRR, no significant murmur Gastrointestinal: soft, non-tender, positive bowel sounds Musculoskeletal: no edema, pulses present severe OA of knees with deformity Neurological: non-focal, moves all 4 limbs Dx/Plan (1) Coagulopathy Status: Acute Comment: off coumadin, got 3 doses of vit k (2) Decubital ulcer Code(s): L89.90 - PRESSURE ULCER OF UNSPECIFIED SITE, UNSPECIFIED STAGE Status : Chronic (3) Functional quadriplegia Code(s): R53.2 - FUNCTIONAL QUADRIPLEGIA Status: Acute Comment: due to DJD (4) Infected ulcer of skin Code(s): L98.499 - NON-PRESSURE CHRONIC ULCER OF SKIN OF SITES W UNSP SEVERITY; L08.9 - LOCAL INFECTION OF THE SKIN AND SUBCUTANEOUS TISSUE, UNSP Status: Acute Comment: fungal infection. Will need repeat biopsy from abd wall ulcer for fungal culture - once INR improves (5) NSVT (nonsustained ventricular tachycardia) Code(s): I47.2 - VENTRICULAR TACHYCARDIA Status: Resolved Comment: on amiodarone (6) Physical deconditioning Code(s): R53.81 - OTHER MALAISE Status: Chronic (7) Swallowing dysfunction Code(s): R13.10 - DYSPHAGIA, UNSPECIFIED Status: Acute Comment: with severe protein calorie malnutrition (8) Afib Code(s): I48.91 - UNSPECIFIED ATRIAL FIBRILLATION Status: Chronic Qualifiers: Atrial fibrillation type: chronic Qualified Code(s): I48.2 - Chronic atrial fibrillation (9) HTN (hypertension) Code(s): I10 - ESSENTIAL (PRIMARY) HYPERTENSION Status: Chronic Qualifiers: Hypertension type: essential hypertension Comment: Stable (10) FTT (failure to thrive) in adult Status: Chronic - Plan increase peg feed as tolerated, currently 30mls/hr -: may dc d5ns once fingersticks glucose levels improve -: will need skin bx to r/o fungal inf of abd wall etc, ?am (Romario/Triston) -: is on voriconazole -: got 2 units of prbc's yesterday with h/h of 05/12 today * . Review of Systems - Medications/Allergies Allergies/Adverse Reactions: Allergies Allergy/AdvReac Type Severity Reaction Status Date / Time Penicillins Allergy Verified 09/15/13 11:09 Medications: Current Medications Acetaminophen (Tylenol) 650 mg PO Q4H PRN PRN Reason: Headache/Fever or Pain Last Admin: 07/01/17 17:16 Dose: 650 mg Acetaminophen/Codeine Phosphate (Tylenol/Codeine Elixir) 5 ml PO Q6H PRN PRN Reason: Pain Last Admin: 07/02/17 22:21 Dose: 5 ml Al Hydroxide/Mg Hydroxide (Maalox) 30 ml PO Q6H PRN PRN Reason: Heartburn or Indigestion Amiodarone HCl (Cordarone) 400 mg PO BID [facility] Last Admin: 07/03/17 08:32 Dose: 400 mg Amiodarone HCl (Cordarone) 400 mg PO DAILY [facility] Stop: 08/04/17 21:00 Artificial Tears (Tears Renewed 15ml Bottle) 0 drop EA EYE PRN PRN PRN Reason: Dry Eyes Bisacodyl (Dulcolax) 10 mg [place] Q24H PRN PRN Reason: Constipation Guaifenesin (Robitussin Sf) 200 mg PO Q4H PRN PRN Reason: Cough Hydralazine HCl (Apresoline) 10 mg SLOW IVP Q4H PRN PRN Reason: Systolic BP > 180 Potassium Chloride/Dextrose/Sod Cl (D5 1/2 Ns W/20 Meq Kcl) 1,000 mls @ 30 mls/ hr IV .Q24H [facility] Last Admin: 07/03/17 08:39 Dose: 1,000 mls Loperamide HCl (Imodium) 2 mg PO PRN PRN PRN Reason: Diarrhea/Loose Stools Loratadine (Claritin) 10 mg PO DAILYPRN PRN PRN Reason: Sinus Symptoms Magnesium Hydroxide (Milk Of Magnesium) 30 ml PO DAILYPRN PRN PRN Reason: Constipation Megestrol Acetate (Megace) 800 mg PO DAILY [facility] Last Admin: 07/03/17 08:31 Dose: 800 mg Mineral Oil/White Petrolatum (Eucerin Cream) 0 gm TOP BIDPRN PRN PRN Reason: Dry Skin Miscellaneous Medication (Pharmacy To Dose) 1 each PO .DAILY PRN PRN Reason: LAB Miscellaneous Medication (Phos-Nak) 1 pkt PO BID-WM [facility] Last Admin: 07/03/17 08:31 Dose: 1 pkt Ondansetron HCl (Zofran Odt) 4 mg PO Q6H PRN PRN Reason: Nausea/Vomiting Ondansetron HCl (Zofran) 4 mg IVP Q6H PRN PRN Reason: Nausea/Vomiting Pantoprazole Sodium (Protonix) 40 mg PO DAILY [facility] Last Admin: 07/03/17 08:32 Dose: 40 mg Saccharomyces Boulardii (Florastor) 250 mg PO DAILY [facility] Last Admin: 07/03/17 08:31 Dose: 250 mg Senna (Senokot) 2 tab PO HSPRN PRN PRN Reason: Constipation Sodium Chloride ([place] Nasal [place] 0.65%) 0 ml EA NARE QIDPRN PRN PRN Reason: Nasal Congestion Sodium Chloride (Flush - Normal Saline) 10 ml IVF Q12HR [facility] Last Admin: 07/03/17 08:41 Dose: 10 ml Sodium Chloride (Flush - Normal Saline) 10 ml IVF PRN PRN PRN Reason: Saline Flush Sodium Hypochlorite (Dakin's Half Strength 0.25% Solution) 0 ml TOP DAILY [facility] Last Admin: 07/03/17 08:41 Dose: Not Given Voriconazole (Vfend) 200 mg PO Q12HR [facility] Last Admin: 07/03/17 09:54 Dose: 200 mg
--- NOTE | 2017-07-03 18:19 | PRG ---
DATE OF SERVICE: 07/03/2017 SUBJECTIVE: Ms. Briceño is awake. She denies any headaches. No shortness of breath. Pain in the breast soft tissue area from the ulcerations in the abdominal region. No diarrhea, no vomiting, no dyspnea. OBJECTIVE: VITAL SIGNS: T-max 99.2, currently 98.9; blood pressure 92/55; pulse 77; respirations 16; O2 sat 99 %. SKIN: Exam shows the area of ulceration, which is packed in the left side of the mid abdominal josh on and the breast areas of ulceration as well. The areas of gluteal pressure ulcerations are noted. She also had the necrotic ulcer in the right side of the abdomen and shallower ulcerations in the breast tissue. LUNGS: Symmetric air entry. HEART: S1, S2, regular rate. ABDOMEN: Soft, mildly distended. Bowel sounds are present. Indwelling Cota catheter output 400 t o 600. LABORATORY DATA: White cell count 11.5, hemoglobin 8.4, platelets 302,000. Sodium 136, creatinine 0.76. Normal liver profile, albumin 1.4. 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 Chronic ulcer ation, now lasting for 8 months without improvement despite multiple courses of antimicrobial therap y and wound care, shallow ulcerations associated with weightbearing, pressure in dependent areas of the body, neutrophilia. DISCUSSION: The biopsy results obtained demonstrates skin with deep extensive acute inflammatory ch anges and numerous fungal organisms identified on special stains. Since the cultures were not submi tted, we will have to request second biopsy, just for fungal cultures to be submitted to the [facility]. 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 It would be important to determine exactly what the nature of the invading org anism is since it would change the nature of the regimen administered. In the meantime, she continu es on voriconazole 200 mg q.12 hours. She might require further surgical debridement of the area.
--- NOTE | 2017-07-03 18:33 | PRG ---
DATE OF SERVICE: 07/03/2017 SUBJECTIVE: Ms. Briceño has PEG placed yesterday. She feels little bit of pain at the PEG tube sit e. OBJECTIVE: VITAL SIGNS: Temperature is 98, pulse 77, blood pressure 92/55 to 114/54. ABDOMEN: Soft, nontender. PEG tube site is clean and dry with no evidence of hematoma or bleeding or tenderness. The bumper was loosened. The feeding tube was not flowing, but the patient reported ly has been tolerating feeds before. LABORATORY STUDIES: White count 11.5, hemoglobin 8.4, platelet count 302. INR 1.9. ASSESSMENT AND PLAN: Failure to thrive status post PEG tube placement and nurses to check feeding p ump if does not seem to be working. We will sign off for now. If I can be of any further assistanc e in the patient's care, please do not hesitate to contact me.
[2017-07-04 06:03] LABS: #Eosinphils 0.1 thou/uL (0.0-0.7); #Lymphocytes 2.4 thou/uL (1.20-3.40); #Monocytes 0.8 thou/uL (0.11-0.59); #Neutrophils 6.5 thou/uL (1.40-6.50); %Basophils 0.1 % (0.0-1.0); %Eosinophils 1.1 % (0.0-10.0); %Lymphocytes 24.5 % (21.0-51.0); %Monocytes 8.2 % (0.0-10.0); Hematocrit 25.8 % (36.0-47.0); Mean Platelet Volume 7.4 fL (7.4-10.4); Red Blood Cell (RBC) Count 2.64 mill/uL (4.20-5.40); White Blood Cell (WBC) Count 9.8 thou/uL (4.8-10.8)
[2017-07-04 06:06] LABS: PTT 52.1 SEC (22.9-36.1); Prothrombin Time 25.1 SEC (12.0-14.7)
[2017-07-04] MEDS: Saccharomyces boulardii 250 MG CAP PO SCH (09:46)
[2017-07-04] MEDS: Acetaminophen 325 MG TAB PO PRN (09:46)
[2017-07-04] MEDS: Megestrol Acetate 800 MG/20 ML UDCUP PO SCH (09:46)
[2017-07-04] MEDS: Voriconazole 50 MG TAB PO SCH ×2 (09:47→20:48)
[2017-07-04] MEDS: D5 1/2 NS w/20 mEq KCL 1,000 ML IV SCH ×2 (09:48→15:41)
[2017-07-04] MEDS: Sodium Hypochlorite 0.25% Solution 480 ML BOT TOP SCH (09:49)
--- NOTE | 2017-07-04 11:53 | PDOC.PN ---
- Subjective Encounter Start Date: 07/04/17 Encounter Start Time: 08:20 -: old records requested/rev Patient seen and examined. No new complaints. No overnight events - Objective Resuscitation Status: Resuscitation Status FULL:Full Resuscitation MAR Reviewed: Yes Vital Signs & Weight: Vital Signs (12 hours) Temp Pulse Resp BP Pulse Ox 07/04/17 07:42 98.9 F 71 16 99/57 L 100 07/04/17 04:00 98.8 F 70 18 103/65 93 L 07/04/17 00:00 99.2 F 77 18 96/60 93 L Weight Admit Weight 167 lb 6 oz Weight 168 lb 4.8 oz I&O: 07/03/17 07/04/17 07/05/17 06:59 06:59 06:59 Intake Total 1090 Output Total 650 850 Balance -650 240 Result Diagrams: 07/04/17 05:35 07/02/17 05:05 Additional Labs: Accuchecks 07/04/17 07/03/17 07/03/17 04:39 19:51 16:16 POC Glucose 101 90 91 Phys Exam - Physical Examination Constitutional: NAD HEENT: PERRLA, moist MMs, sclera anicteric Neck: no JVD, supple Respiratory: no wheezing, no rales, no rhonchi Cardiovascular: RRR, no significant murmur, no rub Gastrointestinal: soft wound with dressing, PEG+ Musculoskeletal: no edema, pulses present duran+ Psychiatric: normal affect Skin: normal turgor Deviation from normal: left breast wound, Dx/Plan (1) Electrolyte abnormality Code(s): E87.8 - OTH DISORDERS OF ELECTROLYTE AND FLUID BALANCE, NEC Status: Resolved (2) Elevated troponin Code(s): R74.8 - ABNORMAL LEVELS OF OTHER SERUM ENZYMES Status: Resolved (3) Functional quadriplegia Code(s): R53.2 - FUNCTIONAL QUADRIPLEGIA Status: Chronic Comment: due to DJD (4) Hypokalemia Code(s): E87.6 - HYPOKALEMIA Status: Resolved (5) Hypomagnesemia Code(s): E83.42 - HYPOMAGNESEMIA Status: Resolved (6) Hypophosphatemia Code(s): E83.39 - OTHER DISORDERS OF PHOSPHORUS METABOLISM Status: Resolved (7) Infected ulcer of skin Code(s): L98.499 - NON-PRESSURE CHRONIC ULCER OF SKIN OF SITES W UNSP SEVERITY; L08.9 - LOCAL INFECTION OF THE SKIN AND SUBCUTANEOUS TISSUE, UNSP Status: Acute Comment: fungal infection. Will need repeat biopsy from abd wall ulcer for fungal culture - once INR improves (8) Other issues per previous notes Status: Acute (9) Poor appetite Code(s): R63.0 - ANOREXIA Status: Acute (10) Protein-calorie malnutrition, moderate Code(s): E44.0 - MODERATE PROTEIN-CALORIE MALNUTRITION Status: Chronic (11) Sepsis Code(s): A41.9 - SEPSIS, UNSPECIFIED ORGANISM Status: Resolved Qualifiers: (12) Swallowing dysfunction Code(s): R13.10 - DYSPHAGIA, UNSPECIFIED Status: Acute Comment: with severe protein calorie malnutrition (13) UTI (urinary tract infection) Status: Acute Comment: (14) Afib Code(s): I48.91 - UNSPECIFIED ATRIAL FIBRILLATION Status: Chronic Qualifiers: Atrial fibrillation type: chronic Qualified Code(s): I48.2 - Chronic atrial fibrillation (15) CKD (chronic kidney disease), stage III Status: Chronic (16) Decubital ulcer Code(s): L89.90 - PRESSURE ULCER OF UNSPECIFIED SITE, UNSPECIFIED STAGE Status : Chronic (17) FTT (failure to thrive) in adult Status: Chronic (18) HTN (hypertension) Code(s): I10 - ESSENTIAL (PRIMARY) HYPERTENSION Status: Chronic Qualifiers: Hypertension type: essential hypertension Qualified Code(s): I10 - Essential (primary) hypertension Comment: Stable (19) Physical deconditioning Code(s): R53.81 - OTHER MALAISE Status: Chronic (20) Coagulopathy Status: Resolved (21) Hypoglycemia Code(s): E16.2 - HYPOGLYCEMIA, UNSPECIFIED Status: Resolved (22) Hyponatremia Code(s): E87.1 - HYPO-OSMOLALITY AND HYPONATREMIA Status: Resolved (23) NSVT (nonsustained ventricular tachycardia) Code(s): I47.2 - VENTRICULAR TACHYCARDIA Status: Resolved Comment: on amiodarone (24) Renal failure (ARF), acute on chronic Code(s): N17.9 - ACUTE KIDNEY FAILURE, UNSPECIFIED; N18.9 - CHRONIC KIDNEY DISEASE, UNSPECIFIED Status: Resolved (25) Ventricular tachyarrhythmia Code(s): I47.2 - VENTRICULAR TACHYCARDIA Status: Resolved - Plan cont current plan of care, continue antibiotics, manager social media continue wound care continue tube feeding will need placement continue antigungal therapy as per dr trejo she will need surgical debridement, dr boles will see today medication reviewed as below symptomatic treatment Review of Systems - Review of Systems ENT: negative: Ear Pain, Ear Discharge, Nose Pain, Nose Discharge, Nose Congestion, Mouth Pain, Mouth Swelling, Throat Pain, Throat Swelling, Other Respiratory: negative: Cough, Dry, Shortness of Breath, Hemoptysis, SOB with Excertion, Pleuritic Pain, Sputum, Wheezing Cardiovascular: negative: Chest Pain, Palpitations, Orthopnea, Paroxysmal Noc. Dyspnea, Edema, Light Headedness, Other Gastrointestinal: negative: Nausea, Vomiting, Abdominal Pain, Diarrhea, Constipation, Melena, Hematochezia, Other Genitourinary: negative: Dysuria, Frequency, Incontinence, Hematuria, Retention , Other Musculoskeletal: negative: Neck Pain, Shoulder Pain, Arm Pain, Back Pain, Hand Pain, Leg Pain, Foot Pain, Other - Medications/Allergies Allergies/Adverse Reactions: Allergies Allergy/AdvReac Type Severity Reaction Status Date / Time Penicillins Allergy Verified 09/15/13 11:09 Medications: Current Medications Acetaminophen (Tylenol) 650 mg PO Q4H PRN PRN Reason: Headache/Fever or Pain Last Admin: 07/04/17 09:46 Dose: 650 mg Acetaminophen/Codeine Phosphate (Tylenol/Codeine Elixir) 5 ml PO Q6H PRN PRN Reason: Pain Last Admin: 07/03/17 22:23 Dose: 5 ml Al Hydroxide/Mg Hydroxide (Maalox) 30 ml PO Q6H PRN PRN Reason: Heartburn or Indigestion Amiodarone HCl (Cordarone) 400 mg PO BID [facility] Last Admin: 07/04/17 09:47 Dose: 400 mg Amiodarone HCl (Cordarone) 400 mg PO DAILY [facility] Stop: 08/04/17 21:00 Last Admin: 07/04/17 09:48 Dose: Not Given Artificial Tears (Tears Renewed 15ml Bottle) 0 drop EA EYE PRN PRN PRN Reason: Dry Eyes Bisacodyl (Dulcolax) 10 mg [place] Q24H PRN PRN Reason: Constipation Guaifenesin (Robitussin Sf) 200 mg PO Q4H PRN PRN Reason: Cough Hydralazine HCl (Apresoline) 10 mg SLOW IVP Q4H PRN PRN Reason: Systolic BP > 180 Potassium Chloride/Dextrose/Sod Cl (D5 1/2 Ns W/20 Meq Kcl) 1,000 mls @ 30 mls/ hr IV .Q24H [facility] Last Admin: 07/04/17 09:48 Dose: Not Given Loperamide HCl (Imodium) 2 mg PO PRN PRN PRN Reason: Diarrhea/Loose Stools Loratadine (Claritin) 10 mg PO DAILYPRN PRN PRN Reason: Sinus Symptoms Magnesium Hydroxide (Milk Of Magnesium) 30 ml PO DAILYPRN PRN PRN Reason: Constipation Megestrol Acetate (Megace) 800 mg PO DAILY [facility] Last Admin: 07/04/17 09:46 Dose: 800 mg Mineral Oil/White Petrolatum (Eucerin Cream) 0 gm TOP BIDPRN PRN PRN Reason: Dry Skin Miscellaneous Medication (Pharmacy To Dose) 1 each PO .DAILY PRN PRN Reason: LAB Miscellaneous Medication (Phos-Nak) 1 pkt PO BID-WM [facility] Last Admin: 07/04/17 09:47 Dose: 1 pkt Ondansetron HCl (Zofran Odt) 4 mg PO Q6H PRN PRN Reason: Nausea/Vomiting Ondansetron HCl (Zofran) 4 mg IVP Q6H PRN PRN Reason: Nausea/Vomiting Pantoprazole Sodium (Protonix) 40 mg PO DAILY [facility] Last Admin: 07/04/17 09:46 Dose: 40 mg Saccharomyces Boulardii (Florastor) 250 mg PO DAILY [facility] Last Admin: 07/04/17 09:46 Dose: 250 mg Senna (Senokot) 2 tab PO HSPRN PRN PRN Reason: Constipation Sodium Chloride ([place] Nasal [place] 0.65%) 0 ml EA NARE QIDPRN PRN PRN Reason: Nasal Congestion Sodium Chloride (Flush - Normal Saline) 10 ml IVF Q12HR [facility] Last Admin: 07/04/17 09:49 Dose: 10 ml Sodium Chloride (Flush - Normal Saline) 10 ml IVF PRN PRN PRN Reason: Saline Flush Sodium Hypochlorite (Dakin's Half Strength 0.25% Solution) 0 ml TOP DAILY [facility] Last Admin: 07/04/17 09:49 Dose: Not Given Voriconazole (Vfend) 200 mg PO Q12HR [facility] Last Admin: 07/04/17 09:47 Dose: 200 mg
--- NOTE | 2017-07-04 16:36 | PRG ---
DATE OF SERVICE: 07/04/2017 SUBJECTIVE: Still lying in bed, very limited mobility, awake and alert, incontinent of urine and st ool, no respiratory symptoms. PHYSICAL EXAMINATION: VITAL SIGNS: T-max 99.2, blood pressure 99/57, pulse 71. GENERAL: Awake and alert. LUNGS: Clear. HEART: S1, S2, regular rate. ABDOMEN: Soft with the area of ulceration noted. LABORATORY: Without change. White cell count 9.8, hemoglobin 8.2, platelets 320. Potassium 3.1, c reatinine 1.4. ASSESSMENT AND DISCUSSION: Rheumatoid arthritis, severe; end-stage ankylosis with multiple joints; chronic ulceration for 8 months, now persisting despite multiple courses of antimicrobial therapy pl us wound care. 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 Cultures have been submitted from the second biopsy and will continue Voricona zole until I have results of cultures.
[2017-07-05 05:44] LABS: Prothrombin Time 26.6 SEC (12.0-14.7)
[2017-07-05] MEDS: D5 1/2 NS w/20 mEq KCL 1,000 ML IV SCH ×2 (06:10→20:21)
[2017-07-05] MEDS: Megestrol Acetate 800 MG/20 ML UDCUP PO SCH (07:39)
[2017-07-05] MEDS: Saccharomyces boulardii 250 MG CAP PO SCH (07:39)
[2017-07-05] MEDS: Sodium Hypochlorite 0.25% Solution 480 ML BOT TOP SCH (07:40)
[2017-07-05] MEDS: Voriconazole 50 MG TAB PO SCH ×2 (08:49→20:12)
[2017-07-05] MEDS ORDERED: Famotidine 20 MG TAB PO SCH (09:00)
[2017-07-05] MEDS: HYDROcodone/Acetaminophen 5/325 mg Tablet PO PRN ×3 (09:44→20:10)
--- NOTE | 2017-07-05 12:22 | PDOC.PN ---
- Subjective Encounter Start Date: 07/05/17 Encounter Start Time: 08:30 Patient seen and examined. No new complaints. No overnight events - Objective Resuscitation Status: Resuscitation Status FULL:Full Resuscitation MAR Reviewed: Yes Vital Signs & Weight: Vital Signs (12 hours) Temp Pulse Resp BP Pulse Ox 07/05/17 08:00 98.1 F 77 18 120/70 100 07/05/17 04:00 99.0 F 77 20 120/70 100 Weight Admit Weight 167 lb 6 oz Weight 168 lb 4.8 oz I&O: 07/04/17 07/05/17 07/06/17 06:59 06:59 06:59 Intake Total 1090 2470 30 Output Total 850 1400 Balance 240 1070 30 Result Diagrams: 07/04/17 05:35 07/02/17 05:05 Additional Labs: Accuchecks 07/04/17 07/04/17 23:16 15:56 POC Glucose 95 110 Phys Exam - Physical Examination Constitutional: NAD HEENT: PERRLA, moist MMs, sclera anicteric Neck: no JVD, supple Respiratory: no wheezing, no rales, no rhonchi Cardiovascular: RRR, no significant murmur, no rub Gastrointestinal: soft, non-tender, no distention, positive bowel sounds wound with dressing, PEG Musculoskeletal: no edema, pulses present Neurological: non-focal Lymphatic: no nodes Psychiatric: normal affect Skin: no rash, normal turgor Dx/Plan (1) Electrolyte abnormality Code(s): E87.8 - OTH DISORDERS OF ELECTROLYTE AND FLUID BALANCE, NEC Status: Resolved (2) Elevated troponin Code(s): R74.8 - ABNORMAL LEVELS OF OTHER SERUM ENZYMES Status: Resolved (3) Functional quadriplegia Code(s): R53.2 - FUNCTIONAL QUADRIPLEGIA Status: Chronic Comment: due to DJD (4) Hypokalemia Code(s): E87.6 - HYPOKALEMIA Status: Resolved (5) Hypomagnesemia Code(s): E83.42 - HYPOMAGNESEMIA Status: Resolved (6) Hypophosphatemia Code(s): E83.39 - OTHER DISORDERS OF PHOSPHORUS METABOLISM Status: Resolved (7) Infected ulcer of skin Code(s): L98.499 - NON-PRESSURE CHRONIC ULCER OF SKIN OF SITES W UNSP SEVERITY; L08.9 - LOCAL INFECTION OF THE SKIN AND SUBCUTANEOUS TISSUE, UNSP Status: Acute Comment: fungal infection. Will need repeat biopsy from abd wall ulcer for fungal culture - once INR improves (8) Other issues per previous notes Status: Acute (9) Poor appetite Code(s): R63.0 - ANOREXIA Status: Acute (10) Protein-calorie malnutrition, moderate Code(s): E44.0 - MODERATE PROTEIN-CALORIE MALNUTRITION Status: Chronic (11) Sepsis Code(s): A41.9 - SEPSIS, UNSPECIFIED ORGANISM Status: Resolved Qualifiers: (12) Swallowing dysfunction Code(s): R13.10 - DYSPHAGIA, UNSPECIFIED Status: Acute Comment: with severe protein calorie malnutrition (13) UTI (urinary tract infection) Status: Acute Comment: (14) Afib Code(s): I48.91 - UNSPECIFIED ATRIAL FIBRILLATION Status: Chronic Qualifiers: Atrial fibrillation type: chronic Qualified Code(s): I48.2 - Chronic atrial fibrillation (15) CKD (chronic kidney disease), stage III Status: Chronic (16) Decubital ulcer Code(s): L89.90 - PRESSURE ULCER OF UNSPECIFIED SITE, UNSPECIFIED STAGE Status : Chronic (17) FTT (failure to thrive) in adult Status: Chronic (18) HTN (hypertension) Code(s): I10 - ESSENTIAL (PRIMARY) HYPERTENSION Status: Chronic Qualifiers: Hypertension type: essential hypertension Qualified Code(s): I10 - Essential (primary) hypertension Comment: Stable (19) Physical deconditioning Code(s): R53.81 - OTHER MALAISE Status: Chronic (20) Coagulopathy Status: Resolved (21) Hypoglycemia Code(s): E16.2 - HYPOGLYCEMIA, UNSPECIFIED Status: Resolved (22) Hyponatremia Code(s): E87.1 - HYPO-OSMOLALITY AND HYPONATREMIA Status: Resolved (23) NSVT (nonsustained ventricular tachycardia) Code(s): I47.2 - VENTRICULAR TACHYCARDIA Status: Resolved Comment: on amiodarone (24) Renal failure (ARF), acute on chronic Code(s): N17.9 - ACUTE KIDNEY FAILURE, UNSPECIFIED; N18.9 - CHRONIC KIDNEY DISEASE, UNSPECIFIED Status: Resolved (25) Ventricular tachyarrhythmia Code(s): I47.2 - VENTRICULAR TACHYCARDIA Status: Resolved - Plan cont current plan of care, plan discussed w/ family, criminal justice social worker * wound care * spoke with surgeon, no plan for further I & d as not going to help * follow up on culture result * meanwhile continue voriconazole * discussed with son * medication reviewed as below * symptomatic treatment * high risk for readmission. Review of Systems - Review of Systems ENT: negative: Ear Pain, Ear Discharge, Nose Pain, Nose Discharge, Nose Congestion, Mouth Pain, Mouth Swelling, Throat Pain, Throat Swelling, Other Respiratory: negative: Cough, Dry, Shortness of Breath, Hemoptysis, SOB with Excertion, Pleuritic Pain, Sputum, Wheezing Cardiovascular: negative: Chest Pain, Palpitations, Orthopnea, Paroxysmal Noc. Dyspnea, Edema, Light Headedness, Other Gastrointestinal: negative: Nausea, Vomiting, Abdominal Pain, Diarrhea, Constipation, Melena, Hematochezia, Other Genitourinary: negative: Dysuria, Frequency, Incontinence, Hematuria, Retention , Other Musculoskeletal: negative: Neck Pain, Shoulder Pain, Arm Pain, Back Pain, Hand Pain, Leg Pain, Foot Pain, Other - Medications/Allergies Allergies/Adverse Reactions: Allergies Allergy/AdvReac Type Severity Reaction Status Date / Time Penicillins Allergy Verified 09/15/13 11:09 Medications: Current Medications Acetaminophen (Tylenol) 650 mg PO Q4H PRN PRN Reason: Headache/Fever or Pain Last Admin: 07/04/17 09:46 Dose: 650 mg Acetaminophen/Codeine Phosphate (Tylenol/Codeine Elixir) 5 ml PO Q6H PRN PRN Reason: Pain Last Admin: 07/03/17 22:23 Dose: 5 ml Hydrocodone Bitart/Acetaminophen ([place] 5/325) 1 tab PO Q4H PRN PRN Reason: Moderate Pain (4-6) Last Admin: 07/05/17 09:44 Dose: 1 tab Al Hydroxide/Mg Hydroxide (Maalox) 30 ml PO Q6H PRN PRN Reason: Heartburn or Indigestion Amiodarone HCl (Cordarone) 400 mg PO DAILY CATHY Stop: 08/04/17 21:00 Last Admin: 07/05/17 07:39 Dose: 400 mg Artificial Tears (Tears Renewed 15ml Bottle) 0 drop EA EYE PRN PRN PRN Reason: Dry Eyes Bisacodyl (Dulcolax) 10 mg ID Q24H PRN PRN Reason: Constipation Guaifenesin (Robitussin Sf) 200 mg PO Q4H PRN PRN Reason: Cough Hydralazine HCl (Apresoline) 10 mg SLOW IVP Q4H PRN PRN Reason: Systolic BP > 180 Potassium Chloride/Dextrose/Sod Cl (D5 1/2 Ns W/20 Meq Kcl) 1,000 mls @ 30 mls/ hr IV .Q24H [facility] Last Admin: 07/05/17 06:10 Dose: Not Given Loperamide HCl (Imodium) 2 mg PO PRN PRN PRN Reason: Diarrhea/Loose Stools Loratadine (Claritin) 10 mg PO DAILYPRN PRN PRN Reason: Sinus Symptoms Magnesium Hydroxide (Milk Of Magnesium) 30 ml PO DAILYPRN PRN PRN Reason: Constipation Megestrol Acetate (Megace) 800 mg PO DAILY [facility] Last Admin: 07/05/17 07:39 Dose: 800 mg Mineral Oil/White Petrolatum (Eucerin Cream) 0 gm TOP BIDPRN PRN PRN Reason: Dry Skin Miscellaneous Medication (Pharmacy To Dose) 1 each PO .DAILY PRN PRN Reason: LAB Miscellaneous Medication (Phos-Nak) 1 pkt PO BID-WM [facility] Last Admin: 07/05/17 07:40 Dose: 1 pkt Ondansetron HCl (Zofran Odt) 4 mg PO Q6H PRN PRN Reason: Nausea/Vomiting Ondansetron HCl (Zofran) 4 mg IVP Q6H PRN PRN Reason: Nausea/Vomiting Pantoprazole Sodium (Protonix) 40 mg PO DAILY [facility] Last Admin: 07/05/17 07:39 Dose: 40 mg Saccharomyces Boulardii (Florastor) 250 mg PO DAILY [facility] Last Admin: 07/05/17 07:39 Dose: 250 mg Senna (Senokot) 2 tab PO HSPRN PRN PRN Reason: Constipation Sodium Chloride ([place] Nasal [place] 0.65%) 0 ml EA NARE QIDPRN PRN PRN Reason: Nasal Congestion Sodium Chloride (Flush - Normal Saline) 10 ml IVF Q12HR [facility] Last Admin: 07/05/17 07:40 Dose: 10 ml Sodium Chloride (Flush - Normal Saline) 10 ml IVF PRN PRN PRN Reason: Saline Flush Sodium Hypochlorite (Dakin's Half Strength 0.25% Solution) 0 ml TOP DAILY [facility] Last Admin: 07/05/17 07:40 Dose: Not Given Voriconazole (Vfend) 200 mg PO Q12HR [facility] Last Admin: 07/05/17 08:49 Dose: 200 mg
--- NOTE | 2017-07-05 13:29 | DIS ---
DATE OF ADMISSION: 06/21/2017 DATE OF DISCHARGE: 07/05/2017 PRIMARY CARE PHYSICIAN: [facility] call admission. DISCHARGE DISPOSITION: [facility]. PRIMARY DISCHARGE DIAGNOSES: 1. Sepsis. 2. Acute on chronic kidney failure. 3. Ventricular tachyarrhythmia. 4. Hypophosphatemia. 5. Hyponatremia. 6. Hypomagnesemia. 7. Hypokalemia. 8. Hypoglycemia. 9. Demand ischemia of myocardium. 10. Moderate protein calorie malnutrition. 11. Functional quadriplegia. 12. Physical deconditioning. 13. Failure to thrive in an adult. 14. Decubitus ulcer. 15. Urinary tract infection. 16. Swallowing dysfunction. 17. Status post percutaneous endoscopic gastrostomy tube placement. 18. Infected ulcer of the skin. SECONDARY DISCHARGE DIAGNOSES: Morbid obesity with body mass index 30, history of hypertension, degenerative disk disease, chronic atrial fibrillation, hypertension, gastroesophageal reflux disease, moderate mitral valve regurgitation, aortic valve regurgitation, tricuspid regurgitation, hypertension. PRIMARY PROCEDURE/OPERATION: Dr. Rogel did left subclavian triple lumen catheter. Dr. Burton did EGD and PEG tube placement. RADIOLOGICAL INVESTIGATION: CT brain was negative for any acute intracranial process. Chest x-ray negative for any acute cardiopulmonary process. Abdomen and pelvis CT scan showed no acute process in the abdomen and pelvis. Echocardiography showed moderate mitral, aortic, and tricuspid regurgitation, moderate pulmonary hypertension. SIGNIFICANT LABORATORY DATA: WBC 9.8, hemoglobin 8.2, and platelets 320. INR of 2.3. Sodium 136, potassium 4.9, BUN 13, creatinine 0.76, calcium 7.8, AST 21 , ALT 11, alkaline phosphatase of 101, albumin 1.4. BNP 653.8. Urinalysis suggestive of urinary tract infection. Urine culture grew yeast. Blood culture negative. Repeat urine culture negative. DISCHARGE MEDICATIONS: Voriconazole 200 mg p.o. b.i.d., amiodarone 200 mg p.o. daily, Protonix 40 mg per tube daily, Florastor 250 mg p.o. daily. Following her p.r.n. medications; Tylenol 650 mg q.4. hourly p.r.n., Tylenol #3 one tablet q.4 hourly p.r.n., Proventil HFA 2 puffs q.6 hourly p.r.n., Maalox 30 mL q.6 hourly p.r.n., milk of magnesia 30 mL p.o. daily p.r.n., Zofran 4 mg q.6 hourly p.r.n., Senokot 2 tablets at bedtime p.r.n. Medication can be given via PEG tube and patient wound will be managed with Dakin's solution. CONTRAINDICATIONS: None. CODE STATUS: FULL CODE. INPATIENT CONSULTANTS: Dr. Doss was following while in hospital. Dr. Burton and Dr. Gurrola were following while in hospital. Dr. Homero Gordon was following while in hospital for nonsustained ventricular tachyarrhythmia. Dr. Langford was following while in hospital. TEST RESULTS PENDING ON DISCHARGE: None. ALLERGIES: PENICILLIN. DISCHARGE PLAN: Post hospital, the patient is discharged to [facility] in [place]. HOSPITAL COURSE: An 81-year-old female who was admitted by [facility] on 06/21/2017. The patient presented to the ER with sepsis. This patient has bed bound status and multiple decubitus ulcers and she has a wound over her abdomen. Patient had a C[place] catheter which was draining pus. She was admitted to telemetry floor for acute encephalopathy, sepsis with acute organ dysfunction, acute kidney failure, abnormal electrolytes, demand ischemia of myocardium, urinary tract infection. On telemetry floor, patient had ventricular tachyarrhythmia and Cardiology was consulted. Echocardiography showed normal EF, moderate MR, TR, and pulmonary hypertension. Amiodarone was started by Cardiology and that was tapered. The patient remained in sinus rhythm and she did not have any further ventricular tachyarrhythmia At that point, the patient was transferred to medical floor. This patient's wound was taken care by wound care team. This patient has severe protein calorie malnutrition and she had swallowing dysfunction and that is why family agreed with PEG tube placement which was done by Dr. Burton. Patient was tolerating PEG tube feeding very well. At this point, the patient does not need any surgical debridement for wound based on surgeon and wound is infected with fungus and culture was drawn, official report of culture is pending, but Dr. Langford agreed with continuing with voriconazole upon discharge. I spoke with Dr. Langford today and he is okay with discharging this patient and he will follow up on an outpatient basis when urine culture result is available. At this point, the patient is stable. She needs wound care. She needs nutritional support. She needs supportive care and this patient is at high risk for recurrent admission. The patient seen and examined at bedside today. Please see my progress note from today for further details. OSIEL
[2017-07-06 05:12] LABS: Prothrombin Time 25.2 SEC (12.0-14.7)
[2017-07-06] MEDS: D5 1/2 NS w/20 mEq KCL 1,000 ML IV SCH (05:19)
[2017-07-06] MEDS: HYDROcodone/Acetaminophen 5/325 mg Tablet PO PRN (07:10)
[2017-07-06 08:11] VITALS: BP 110/60; TEMP 98.7
[2017-07-06] MEDS: Saccharomyces boulardii 250 MG CAP PO SCH (08:57)
[2017-07-06] MEDS: Megestrol Acetate 800 MG/20 ML UDCUP PO SCH (08:57)
[2017-07-06] MEDS: Voriconazole 50 MG TAB PO SCH (08:58)
[2017-07-06] MEDS: Sodium Hypochlorite 0.25% Solution 480 ML BOT TOP SCH (08:58)
--- NOTE | 2017-07-06 10:32 | PDOC.PN ---
- Subjective Encounter Start Date: 07/06/17 Encounter Start Time: 08:50 Patient seen and examined. No new complaints. No overnight events - Objective Resuscitation Status: Resuscitation Status FULL:Full Resuscitation MAR Reviewed: Yes Vital Signs & Weight: Vital Signs (12 hours) Temp Pulse Resp BP Pulse Ox 07/06/17 08:10 98.7 F 78 16 110/60 98 Weight Admit Weight 167 lb 6 oz Weight 168 lb 4.8 oz I&O: 07/05/17 07/06/17 07/07/17 06:59 06:59 06:59 Intake Total 2470 720 Output Total 1400 1150 Balance 1070 -430 Result Diagrams: 07/04/17 05:35 07/02/17 05:05 Additional Labs: Accuchecks 07/05/17 07/05/17 21:46 11:09 POC Glucose 100 123 H Phys Exam - Physical Examination Constitutional: NAD HEENT: PERRLA, moist MMs, sclera anicteric Neck: no JVD, supple Respiratory: no wheezing, no rales, no rhonchi Cardiovascular: RRR, no significant murmur, no rub Gastrointestinal: soft, non-tender, no distention, positive bowel sounds PEG+, wound+ Musculoskeletal: no edema, pulses present Neurological: non-focal, normal sensation Lymphatic: no nodes Psychiatric: normal affect Skin: no rash, normal turgor Dx/Plan (1) Electrolyte abnormality Code(s): E87.8 - OTH DISORDERS OF ELECTROLYTE AND FLUID BALANCE, NEC Status: Resolved (2) Elevated troponin Code(s): R74.8 - ABNORMAL LEVELS OF OTHER SERUM ENZYMES Status: Resolved (3) Functional quadriplegia Code(s): R53.2 - FUNCTIONAL QUADRIPLEGIA Status: Chronic Comment: due to DJD (4) Hypokalemia Code(s): E87.6 - HYPOKALEMIA Status: Resolved (5) Hypomagnesemia Code(s): E83.42 - HYPOMAGNESEMIA Status: Resolved (6) Hypophosphatemia Code(s): E83.39 - OTHER DISORDERS OF PHOSPHORUS METABOLISM Status: Resolved (7) Infected ulcer of skin Code(s): L98.499 - NON-PRESSURE CHRONIC ULCER OF SKIN OF SITES W UNSP SEVERITY; L08.9 - LOCAL INFECTION OF THE SKIN AND SUBCUTANEOUS TISSUE, UNSP Status: Acute Comment: fungal infection. Will need repeat biopsy from abd wall ulcer for fungal culture - once INR improves (8) Other issues per previous notes Status: Acute (9) Poor appetite Code(s): R63.0 - ANOREXIA Status: Acute (10) Protein-calorie malnutrition, moderate Code(s): E44.0 - MODERATE PROTEIN-CALORIE MALNUTRITION Status: Chronic (11) Sepsis Code(s): A41.9 - SEPSIS, UNSPECIFIED ORGANISM Status: Resolved Qualifiers: (12) Swallowing dysfunction Code(s): R13.10 - DYSPHAGIA, UNSPECIFIED Status: Acute Comment: with severe protein calorie malnutrition (13) UTI (urinary tract infection) Status: Acute Comment: (14) Afib Code(s): I48.91 - UNSPECIFIED ATRIAL FIBRILLATION Status: Chronic Qualifiers: Atrial fibrillation type: chronic Qualified Code(s): I48.2 - Chronic atrial fibrillation (15) CKD (chronic kidney disease), stage III Status: Chronic (16) Decubital ulcer Code(s): L89.90 - PRESSURE ULCER OF UNSPECIFIED SITE, UNSPECIFIED STAGE Status : Chronic (17) FTT (failure to thrive) in adult Status: Chronic (18) HTN (hypertension) Code(s): I10 - ESSENTIAL (PRIMARY) HYPERTENSION Status: Chronic Qualifiers: Hypertension type: essential hypertension Qualified Code(s): I10 - Essential (primary) hypertension Comment: Stable (19) Physical deconditioning Code(s): R53.81 - OTHER MALAISE Status: Chronic (20) Coagulopathy Status: Resolved (21) Hypoglycemia Code(s): E16.2 - HYPOGLYCEMIA, UNSPECIFIED Status: Resolved (22) Hyponatremia Code(s): E87.1 - HYPO-OSMOLALITY AND HYPONATREMIA Status: Resolved (23) NSVT (nonsustained ventricular tachycardia) Code(s): I47.2 - VENTRICULAR TACHYCARDIA Status: Resolved Comment: on amiodarone (24) Renal failure (ARF), acute on chronic Code(s): N17.9 - ACUTE KIDNEY FAILURE, UNSPECIFIED; N18.9 - CHRONIC KIDNEY DISEASE, UNSPECIFIED Status: Resolved (25) Ventricular tachyarrhythmia Code(s): I47.2 - VENTRICULAR TACHYCARDIA Status: Resolved - Plan cont current plan of care, plan discussed w/ family, continue antibiotics, PT/OT , licensed master social worker * continue wound care * no plan for surgical debridement * follow on fungal culture and follow up with dr trejo * meanwhile on voriconazole * she is very sensitive with warfarin, currently off but if started needs to monitor inr daily * discussed with son * stable for discharge * see discharge summery from yesterday * pt is going to [facility] in [place]. Review of Systems - Review of Systems ENT: negative: Ear Pain, Ear Discharge, Nose Pain, Nose Discharge, Nose Congestion, Mouth Pain, Mouth Swelling, Throat Pain, Throat Swelling, Other Respiratory: negative: Cough, Dry, Shortness of Breath, Hemoptysis, SOB with Excertion, Pleuritic Pain, Sputum, Wheezing Cardiovascular: negative: Chest Pain, Palpitations, Orthopnea, Paroxysmal Noc. Dyspnea, Edema, Light Headedness, Other Gastrointestinal: negative: Nausea, Vomiting, Abdominal Pain, Diarrhea, Constipation, Melena, Hematochezia, Other Genitourinary: negative: Dysuria, Frequency, Incontinence, Hematuria, Retention , Other Musculoskeletal: negative: Neck Pain, Shoulder Pain, Arm Pain, Back Pain, Hand Pain, Leg Pain, Foot Pain, Other - Medications/Allergies Allergies/Adverse Reactions: Allergies Allergy/AdvReac Type Severity Reaction Status Date / Time Penicillins Allergy Verified 09/15/13 11:09 Medications: Current Medications Acetaminophen (Tylenol) 650 mg PO Q4H PRN PRN Reason: Headache/Fever or Pain Last Admin: 07/04/17 09:46 Dose: 650 mg Acetaminophen/Codeine Phosphate (Tylenol/Codeine Elixir) 5 ml PO Q6H PRN PRN Reason: Pain Last Admin: 07/03/17 22:23 Dose: 5 ml Hydrocodone Bitart/Acetaminophen ([place] 5/325) 1 tab PO Q4H PRN PRN Reason: Moderate Pain (4-6) Last Admin: 07/06/17 07:10 Dose: 1 tab Al Hydroxide/Mg Hydroxide (Maalox) 30 ml PO Q6H PRN PRN Reason: Heartburn or Indigestion Amiodarone HCl (Cordarone) 400 mg PO DAILY [facility]ATHY Stop: 08/04/17 21:00 Last Admin: 07/06/17 08:57 Dose: 400 mg Artificial Tears (Tears Renewed 15ml Bottle) 0 drop EA EYE PRN PRN PRN Reason: Dry Eyes Bisacodyl (Dulcolax) 10 mg AL Q24H PRN PRN Reason: Constipation Guaifenesin (Robitussin Sf) 200 mg PO Q4H PRN PRN Reason: Cough Hydralazine HCl (Apresoline) 10 mg SLOW IVP Q4H PRN PRN Reason: Systolic BP > 180 Potassium Chloride/Dextrose/Sod Cl (D5 1/2 Ns W/20 Meq Kcl) 1,000 mls @ 30 mls/ hr IV .Q24H [facility] Last Admin: 07/06/17 05:19 Dose: Not Given Loperamide HCl (Imodium) 2 mg PO PRN PRN PRN Reason: Diarrhea/Loose Stools Loratadine (Claritin) 10 mg PO DAILYPRN PRN PRN Reason: Sinus Symptoms Magnesium Hydroxide (Milk Of Magnesium) 30 ml PO DAILYPRN PRN PRN Reason: Constipation Megestrol Acetate (Megace) 800 mg PO DAILY [facility] Last Admin: 07/06/17 08:57 Dose: Not Given Mineral Oil/White Petrolatum (Eucerin Cream) 0 gm TOP BIDPRN PRN PRN Reason: Dry Skin Miscellaneous Medication (Pharmacy To Dose) 1 each PO .DAILY PRN PRN Reason: LAB Miscellaneous Medication (Phos-Nak) 1 pkt PO BID-WM [facility] Last Admin: 07/06/17 08:57 Dose: 1 pkt Ondansetron HCl (Zofran Odt) 4 mg PO Q6H PRN PRN Reason: Nausea/Vomiting Ondansetron HCl (Zofran) 4 mg IVP Q6H PRN PRN Reason: Nausea/Vomiting Pantoprazole Sodium (Protonix) 40 mg PO DAILY [facility] Last Admin: 07/06/17 08:57 Dose: 40 mg Saccharomyces Boulardii (Florastor) 250 mg PO DAILY [facility] Last Admin: 07/06/17 08:57 Dose: 250 mg Senna (Senokot) 2 tab PO HSPRN PRN PRN Reason: Constipation Sodium Chloride ([place] Nasal [place] 0.65%) 0 ml EA NARE QIDPRN PRN PRN Reason: Nasal Congestion Sodium Chloride (Flush - Normal Saline) 10 ml IVF Q12HR [facility] Last Admin: 07/06/17 08:59 Dose: Not Given Sodium Chloride (Flush - Normal Saline) 10 ml IVF PRN PRN PRN Reason: Saline Flush Sodium Hypochlorite (Dakin's Half Strength 0.25% Solution) 0 ml TOP DAILY [facility] Last Admin: 07/06/17 08:58 Dose: 1 applic Voriconazole (Vfend) 200 mg PO Q12HR [facility] Last Admin: 07/06/17 08:58 Dose: 200 mg
--- NOTE | 2017-07-06 13:44 | ADD-DIS ---
ADDENDUM This patient was planned for discharge yesterday, but at [facility], medication arrangement was not done and that is why this patient stayed overnight. At this point, the patient's discharge medication will be exactly the same as yesterday's. Only thing is warfarin can be restarted when IN R is below 2 and at that time, the patient's INR needs to be very closely monitored. The patient wi ll need continuous wound care. We discontinued central line. Above mentioned medication administer ed as per previous discharge summary will be continued. The patient is seen and examined at bedside today. Please see my progress note from today for further details.
--- NOTE | 2017-07-07 16:53 | PDOC.OP ---
Operative Note - Operative Note Operative Note: PROCEDURE: Abdominal wound debridements and skin biopsy DATE OF PROCEDURE: 06/23/2017 SURGEON: Miranda Doss M.D. PREOPERATIVE DIAGNOSES: Chronic advancing abdominal wound POSTOPERATIVE DIAGNOSIS: Chronic advancing abdominal wound HISTORY: Patient with abdominal wound initially felt to be due to a spider bite. However this has continued to progress and she has developed similar lesions in her left breast. Dr. Langford of infectious disease has requested a skin biopsy to evaluate for vasculitis or other underlying issues. In addition she has additional necrosis of skin and soft tissues especially along the inferior portion of her incision so the wound require sharp debridement. PROCEDURE IN DETAIL: After informed consent was obtained from the patient and her family, the wound was prepped with Betadine and the necrotic skin and subcutaneous tissues from the inferior portion of the wound were sharply excised back to viable appearing fat and skin. Local anesthesia was infused to some of the viable skin along the margin of the wound and an elliptical full- thickness skin biopsy was removed and sent to pathology. Hemostasis was verified and the wound was dressed with wet-to-dry dressings. The patient tolerated the procedure well. Estimated blood loss was minimal. There were no complications. Specimen is abdominal skin biopsy.
== END 2017-07-06 11:13 | DRG 871 ==
LOC: ERS 12:11 → 2NO 15:19 → T4-A 06-30 14:54
PROVIDERS: ADMIT Internal Medicine; ATTEND Internal Medicine
PROC: 0DH63UZ Insertion of Feeding Device into Stomach, Percutaneous Approach (ICD-10-PCS; 2017-06-22)
PROC: 0JD83ZZ Extraction of Abdomen Subcutaneous Tissue and Fascia, Percutaneous Approach (ICD-10-PCS; principal; 2017-06-23)
PROC: 0HD5XZZ Extraction of Chest Skin, External Approach (ICD-10-PCS; 2017-06-23)
PROC: 02HV33Z Insertion of Infusion Device into Superior Vena Cava, Percutaneous Approach (ICD-10-PCS; 2017-06-27)
PROC: 30233N1 Transfusion of Nonautologous Red Blood Cells into Peripheral Vein, Percutaneous Approach (ICD-10-PCS; 2017-07-02)
DX: A41.9 Sepsis, unspecified organism (principal); G93.41 Metabolic encephalopathy; E43 Unspecified severe protein-calorie malnutrition; I47.2 Ventricular tachycardia; N17.9 Acute kidney failure, unspecified; L89.159 Pressure ulcer of sacral region, unspecified stage; N18.3 Chronic kidney disease, stage 3 (moderate); R53.2 Functional quadriplegia; I24.8 Other forms of acute ischemic heart disease; E87.1 Hypo-osmolality and hyponatremia; N39.0 Urinary tract infection, site not specified; N12 Tubulo-interstitial nephritis, not specified as acute or chronic; I48.2 Chronic atrial fibrillation; F03.90 Unspecified dementia, unspecified severity, without behavioral disturbance, psychotic disturbance, mood disturbance, and anxiety; E83.42 Hypomagnesemia; I10 Essential (primary) hypertension; E86.0 Dehydration; E87.8 Other disorders of electrolyte and fluid balance, not elsewhere classified; D64.9 Anemia, unspecified; M06.9 Rheumatoid arthritis, unspecified; M24.60 Ankylosis, unspecified joint; I08.3 Combined rheumatic disorders of mitral, aortic and tricuspid valves; E83.39 Other disorders of phosphorus metabolism; E87.6 Hypokalemia; E16.2 Hypoglycemia, unspecified; I27.20 Pulmonary hypertension, unspecified; I12.9 Hypertensive chronic kidney disease with stage 1 through stage 4 chronic kidney disease, or unspecified chronic kidney disease; L89.899 Pressure ulcer of other site, unspecified stage; K21.9 Gastro-esophageal reflux disease without esophagitis; E66.01 Morbid (severe) obesity due to excess calories; L08.9 Local infection of the skin and subcutaneous tissue, unspecified; R65.20 Severe sepsis without septic shock; R62.7 Adult failure to thrive; R13.10 Dysphagia, unspecified; Z68.30 Body mass index [BMI] 30.0-30.9, adult; Z79.01 Long term (current) use of anticoagulants; Z88.0 Allergy status to penicillin; Z74.01 Bed confinement status
CPT/HCPCS: 36415; 36416; 36430; 51702; 70450; 71010; 74176; 80053; 80069; 80202; 81001; 81003; 81015; 82553; 83605; 83735; 83880; 84443; 84484; 85025; 85610; 85730; 86850; 86900; 86901; 87040; 87086; 87102; 87149; 87206; 88305; 88312; 90471; 90682; 93005; 93306; 96365; 96367; 96375; A4216; G0008; G8981-GP-CN; G8982-GP-CL; G8987-GO-CM; G8988-GO-CM; G8989-GO-CM; G8996-GN-CK; G8996-GN-CL; G8997-GN-CK; J0696; J1450; J1956; J2001; J2185; J2270; J2704; J3370; J3430; J3475; J3490; J7050; P9016; Q2036

== ENCOUNTER 2017-09-05 15:35 | Inpatient (IN) | payer MEDICARE, MEDICAID ==
--- NOTE | 2017-09-05 16:57 | RAD ---
EXAM: ONE VIEW CHEST: History Dyspnea. snf patient. Shortness of breath x 2 days. COMPARISON: 07/02/17. FINDINGS: Portable upright chest demonstrates enlarged cardiac silhouette. There is atherosclerosis of the aor ta. The pulmonary vessels and hilum are normal. Blunting of the left costophrenic angle. Right cos tophrenic angle is clear. No consolidation or mass. No pneumothorax. Chronic changes involving the proximal left humerus. IMPRESSION: 1. Cardiomegaly. 2. Atherosclerosis. 3. Blunting of the left costophrenic angle likely due to small effusion or atelectasis. POS: [facility]
[2017-09-05 17:14] LABS: #Basophils 0.1 thou/uL (0.0-0.2); #Eosinphils 0.1 thou/uL (0.0-0.7); #Lymphocytes 2.5 thou/uL (1.20-3.40); #Monocytes 0.8 thou/uL (0.11-0.59); #Neutrophils 4.6 thou/uL (1.40-6.50); %Basophils 0.7 % (0.0-1.0); %Eosinophils 1.3 % (0.0-10.0); %Lymphocytes 31.2 % (21.0-51.0); %Monocytes 9.8 % (0.0-10.0); Mean Platelet Volume 6.7 fL (7.4-10.4); Red Blood Cell (RBC) Count 3.83 mill/uL (4.20-5.40)
[2017-09-05 17:21] LABS: PTT 48.7 SEC (22.9-36.1); Prothrombin Time 23.3 SEC (12.0-14.7)
[2017-09-05 17:38] LABS: ALT (SGPT) 27 U/L (8-55); AST (SGOT) 68 U/L (5-34); Alkaline Phosphatase 244 U/L (40-150); Anion Gap 11 mmol/L (10-20); BUN (Urea Nitrogen) 45 mg/dL (9.8-20.1); Bilirubin, Total 0.6 mg/dL (0.2-1.2); CK (CPK) 121 U/L (29-168); Calc. Creatinine Clearance 0 mL/min (70-130); Carbon Dioxide 20 mmol/L (23-31); Chloride 101 mmol/L (98-107); Estimated GFR-MDRD 54; Globulin 6.7 g/dL (2.4-3.5); Protein, Total 8.9 g/dL (6.0-8.3)
[2017-09-05 17:42] LABS: Troponin I 0.047 ng/mL (< 0.028)
[2017-09-05] MEDS ORDERED: Morphine 4 MG/ML VIAL ONE (18:24)
[2017-09-05] MEDS ORDERED: Diabetic Tussin 200 MG/10 ML UDCUP PO SCH (19:00)
[2017-09-05] MEDS ORDERED: Acetaminophen 325 MG TAB PO PRN (20:14)
[2017-09-05 20:51] LABS: Troponin I 0.046 ng/mL (< 0.028)
[2017-09-05 22:42] VITALS: BMI 32.8
--- NOTE | 2017-09-05 23:11 | HP ---
DATE OF ADMISSION: 09/05/2017 ADMITTING PHYSICIAN: Dr. Zoltan Starkey. PRIMARY CARE PHYSICIAN: Dr. Martínez. CHIEF COMPLAINT: Shortness of breath, diffuse myalgias as well as cough. HISTORY OF PRESENT ILLNESS: Patient denies fevers or chills. [facility] was [facility] in by her family because she called him reporting generalized weakness and also so me chest tightness and sore throat. REVIEW OF SYSTEMS: The following complete review of systems was negative, unless otherwise mentioned in the HPI or below: Constitutional: Weight loss or gain, sense of well-being, ability to conduct usual activities, exerc ise tolerance. Skin/Breast: Rash, itching, changes in hair growth or loss, nail changes, breast lumps, tenderness, swelling, nipple discharge. Eyes: Vision, double vision, tearing, blind spots, pain. ENT/Mouth: Headaches (location, time of onset, duration, precipitating factors), vertigo, lightheaded ness, injury. Vision, double vision, tearing, blind spots, pain, nose bleeding, colds, obstruction, d ischarge, dental difficulties, gingival bleeding, dentures, neck stiffness, pain, tenderness, masses in thyroid or other areas. Cardiovascular: Precordial pain, substernal distress, palpitations, syncope, dyspnea on exertion, or thopnea, nocturnal paroxysmal dyspnea, edema, cyanosis, hypertension, heart murmurs, varicosities, ph lebitis, claudication. Respiratory: Pain, shortness of breath, wheezing, stridor, cough, hemoptysis, fever or night sweats. Gastrointestinal: Poor appetite, dysphagia, indigestion, abdominal pain, heartburn, eructation, naus ea, vomiting, hematemesis, jaundice, constipation, or diarrhea, abnormal stools (liam-colored, tarry, bloody, greasy, foul smelling), flatulence, hemorrhoids, recent changes in bowel habits. Genitourinary: Urgency, frequency, dysuria, nocturia, hematuria, polyuria, oliguria, unusual (or dipesh nge in) color of urine, stones, hesitancy, change in size of stream, dribbling, acute retention or in continence, libido, potency. Musculoskeletal: Pain, swelling, redness or heat of muscles or joints, limitation, of motion, muscul ar weakness, atrophy, cramps. Neurologic/Psychiatric: Convulsions, paralyzes, tremor, incoordination, paresthesias, difficulties w ith memory of speech, sensory or motor disturbances, or muscular coordination (ataxia, tremor), emoti onal problems, anxiety, depression, previous psychiatric care, unusual perceptions, hallucinations. Allergy/Immunologic: Skin rash, anemia, bleeding tendency, polydipsia, polyuria, intolerance to heat or cold. PAST MEDICAL HISTORY: Significant for coronary artery disease, congestive heart failure, GERD, rheum atoid arthritis, ankylosing spondylitis, MRSA, and multiple ulcers. She also has a history of atrial fibrillation and is bed bound resident of the [facility]. PAST SURGICAL HISTORY: Positive for recent PEG tube placement, renal stent placement, cholecystectom y. PSYCHIATRIC HISTORY: Negative. SOCIAL HISTORY: Once again, patient resides in a [facility]. Denies alcohol, drug, or smoking abu se. FAMILY HISTORY: Reviewed and noncontributory. HOME MEDICATIONS: Include Coumadin 2.5 mg, Protonix 40 mg once a day, amiodarone 200 mg once a day, Florastor 250 mg every day, voriconazole 200 mg every day, and Tylenol No. 3 as needed. DRUG ALLERGIES: She is allergic to PENICILLIN. PHYSICAL EXAMINATION: VITAL SIGNS: Vital statistics temperature of 98.7, blood pressure 146/62, pulse 75, respirations 20, pain 10/10, and satting 100% on room air. GENERAL: She is pleasant, cooperative, in no acute distress. HEENT: Normocephalic, atraumatic. EYES: PERRL. Extraocular muscles intact. ENT: Pharynx is normal. Tonsil exam normal. Mouth exam normal. Mucous membranes are moist, pink. NECK: Trachea midline. No meningeal signs. No cervical adenopathy. RESPIRATORY: Shows normal breath sounds bilaterally. No rhonchi, no wheezing. CARDIOVASCULAR: Irregularly irregular with a grade 2/6 systolic ejection murmur. ABDOMEN: Obese, nontender, nondistended. PEG tube is present with a relatively clean site. EXTREMITIES: Contractures as well as skin ulcers present. NEUROLOGIC: She is alert and oriented x3. SKIN: Once again, multiple skin lesions, some with dressings and some uncovered. LABORATORY DATA AND IMAGES: BNP of 350.6, creatine kinase of 121, CK-MB of 6.8, troponin I of 0.047. CMP: Sodium 127, potassium 5.2, chloride 101, CO2 of 20, BUN 45, creatinine 1.15. AST 68, ALT 27, albumin 2.2, PTT of 48.7, prothrombin of 23.3. CBC: White count of 8.0, hemoglobin 12.8, hematocri t 40.0, platelets 437,000. Chest x-ray shows cardiomegaly with pleural effusion of less than 10% on the left, otherwise no infiltrates, no pneumothorax. ASSESSMENT AND PLAN: 1. Generalized weakness. 2. Possible viral syndrome. 3. History of atrial fibrillation. 4. Inflammatory arthritis. 5. Coronary artery disease. PLAN: Admit the patient will be admitted to telemetry. We will treat her empirically with antibioti cs for possible MRSA infection in light of her multiple skin ulcers. We will control her heart rate and continue anticoagulation for the atrial fibrillation. Although, patient is on Coumadin, we will continue Lovenox at this time for deep venous thrombosis prophylaxis. Patient at this time is tolera ting p.o., we will administer fluid resuscitation if it becomes necessary.
[2017-09-05 23:44] LABS: Troponin I 0.049 ng/mL (< 0.028)
[2017-09-05] MEDS: HYDROcodone/Acetaminophen 5/325 mg Tablet PO PRN (23:59)
[2017-09-06 04:42] LABS: #Eosinphils 0.1 thou/uL (0.0-0.7); #Lymphocytes 2.3 thou/uL (1.20-3.40); #Monocytes 1.1 thou/uL (0.11-0.59); #Neutrophils 4.1 thou/uL (1.40-6.50); %Basophils 0.5 % (0.0-1.0); %Eosinophils 0.9 % (0.0-10.0); %Lymphocytes 30.9 % (21.0-51.0); Hematocrit 33.4 % (36.0-47.0); Mean Platelet Volume 6.9 fL (7.4-10.4); Red Blood Cell (RBC) Count 3.23 mill/uL (4.20-5.40); White Blood Cell (WBC) Count 7.6 thou/uL (4.8-10.8)
[2017-09-06 04:54] LABS: Anion Gap 9 mmol/L (10-20); BUN (Urea Nitrogen) 42 mg/dL (9.8-20.1); Calc. Creatinine Clearance 50 mL/min (70-130); Calcium 8.5 mg/dL (7.8-10.44); Carbon Dioxide 21 mmol/L (23-31); Chloride 102 mmol/L (98-107); Estimated GFR-MDRD 58
[2017-09-06] MEDS: HYDROcodone/Acetaminophen 5/325 mg Tablet PO PRN ×2 (08:05→22:11)
[2017-09-06] MEDS ORDERED: Enoxaparin Sodium 40 MG/0.4 ML SYRINGE SC SCH (09:00)
[2017-09-06] MEDS ORDERED: Mag-Al 1200 mg/1200 mg/30 ML UDCUP PER TUBE PRN (10:09)
[2017-09-06] MEDS ORDERED: Senokot 8.6 MG TAB PER TUBE PRN (10:09)
[2017-09-06] MEDS ORDERED: Milk Of Magnesia 30 ML UDCUP PER TUBE PRN (10:09)
[2017-09-06] MEDS ORDERED: Ondansetron ODT 4 MG TAB PER TUBE PRN (10:09)
[2017-09-06] MEDS ORDERED: Acetaminophen 325 MG TAB PER TUBE PRN (10:09)
[2017-09-06] MEDS ORDERED: Acetaminophen/Codeine 30-300mg Tablet PER TUBE PRN (10:09)
[2017-09-06] MEDS ORDERED: PROVENTIL INHALER 6.7 G (200 INHALATIONS) INH PRN (10:09)
--- NOTE | 2017-09-06 10:19 | PDOC.PN ---
- Subjective Encounter Start Date: 09/06/17 Encounter Start Time: 10:30 Subjective: Patient with continued complaint of sore throat and cough. No SOB this AM. -: Chronic, multiple sores with hx of MRSA in them. - Objective MAR Reviewed: Yes Vital Signs & Weight: Vital Signs (12 hours) Temp Pulse Resp BP Pulse Ox 09/06/17 08:18 97.1 F L 74 18 116/45 L 100 09/06/17 08:00 97.1 F L 74 18 100 09/06/17 04:00 97.9 F 84 20 110/43 L 100 09/06/17 00:00 99.1 F 81 20 123/57 L 100 09/05/17 23:20 99.4 F 85 20 98 09/05/17 22:30 99.4 F 85 20 149/98 H 100 Weight Weight 179 lb 3.2 oz I&O: 09/05/17 09/06/17 09/07/17 06:59 06:59 06:59 Intake Total 160 Balance 160 Result Diagrams: 09/06/17 03:47 09/06/17 03:47 Phys Exam - Physical Examination Constitutional: NAD HEENT: moist MMs Respiratory: no wheezing, no rales, no rhonchi Cardiovascular: no significant murmur, irregular Gastrointestinal: soft, positive bowel sounds PEG in place Neurological: non-focal Psychiatric: normal affect Dx/Plan (1) Hyponatremia Code(s): E87.1 - HYPO-OSMOLALITY AND HYPONATREMIA Status: Acute (2) URI (upper respiratory infection) Code(s): J06.9 - ACUTE UPPER RESPIRATORY INFECTION, UNSPECIFIED Status: Acute Qualifiers: URI type: unspecified viral URI Qualified Code(s): J06.9 - Acute upper respiratory infection, unspecified; B97.89 - Other viral agents as the cause of diseases classified elsewhere; B97.89 - Other viral agents as the cause of diseases classified elsewhere (3) HTN (hypertension) Code(s): I10 - ESSENTIAL (PRIMARY) HYPERTENSION Status: Chronic Qualifiers: Hypertension type: essential hypertension Qualified Code(s): I10 - Essential (primary) hypertension Comment: Stable (4) Renal failure (ARF), acute on chronic Code(s): N17.9 - ACUTE KIDNEY FAILURE, UNSPECIFIED; N18.9 - CHRONIC KIDNEY DISEASE, UNSPECIFIED Status: Resolved (5) Afib Code(s): I48.91 - UNSPECIFIED ATRIAL FIBRILLATION Status: Chronic Qualifiers: Atrial fibrillation type: chronic Qualified Code(s): I48.2 - Chronic atrial fibrillation - Plan cont current plan of care No evidence bacterial infection at this point. Will treat cough and pain. -: Monitor fluid intake. Hyponatremia likely related to CHF history, not -: severe. Will restrict free water. * . - Discharge Day Encounter end time: 11:00
--- NOTE | 2017-09-06 14:50 | PQF ---
DATE: 09-06-17 ATTN: DR. NICOLLE MYERS Please exercise your independent, professional judgment in responding to the clarification form. Clinical indicators are provided on the bottom of this form for your review Please check appropriate box(s): ___X__ I agree with Wound Care Assessment as stated below for NON-Pressure Ulcers [ ] NON-Pressure Ulcer CHECK ALL THAT APPLY Location: [ ] Back [ ] Buttock [ ] Thigh [ ] Lower limb [ ] Calf [ ] Ankle [ ] Heel/ midfoot [ ] Other 1 Laterality [ ] Left [ ] Right [ ] Bilateral [ ] Upper [ ] Lower [ ] N/A 2 Depth [ ] Skin only [ ] Fat exposed [ ] Muscle exposed [ ] Bone exposed 3 Type [ ] Diabetic [ ] Vascular due to PVD [ ] Varicose [ ] Atherosclerosis of lower limb [ ] Postphlebitic syndrome [ ] Post thrombotic syndrome [ ] Chronic venous HTN [ ] Other (specify) 4 Gangrene [ ] Yes [ ] No [ ] Due to Gas Gangrene [ ] Other (specify) [ ] Other diagnosis [ ] Unable to determine For continuity of documentation, please document condition throughout progress notes and discharge summary. Thank You. CLINICAL INDICATORS - SIGNS / SYMPTOMS / LABS WOUND CARE CONSULT 09-06-17: R AXILLA NON-PRESSURE ULCER, FULL THICKNESS R FLANK NON-PRESSURE ULCER, PARTIAL THICKNESS L FLANK NON-PRESSURE ULCER, FULL THICKNESS L LOWER ABDOMEN NON- PRESSURE ULCER, FULL THICKNESS L BREAST NON-PRESSURE ULCER, FULL THICKNESS R BUTTOCK NON-PRESSURE ULCER, PARTIAL THICKNESS RISK FACTORS: H&P: HX OF MRSA, BEDBOUND RESIDENT FROM [facility], CONTRACTURES WELL SKIN ULCERS, HX OF CAD, CHF TREATMENTS:WOUND CARE CONSULT: 09/06/17 medihoney sheet, large sacral mepilex 09/06/17 packed w/ alginate w/ honey, small sacral mepilex 2 small areas open on right breast, promogran and 2 small tegaderm + pad used. (This form is maintained as a part of the permanent medical record) 2014 [employer]. All Rights Reserved [email or web address] Office: [phone] [facility]
[2017-09-07] MEDS ORDERED: Saccharomyces boulardii 250 MG CAP PER TUBE SCH (09:00)
[2017-09-07] MEDS ORDERED: Sodium Hypochlorite 0.25% Solution 480 ML BOT TOP SCH (09:00)
[2017-09-07] MEDS ORDERED: Pantoprazole 40 MG GRANULES PACKET PER TUBE SCH (09:00)
[2017-09-07] MEDS ORDERED: Multivitamin W/ Minerals 1 TAB PER TUBE SCH (09:00)
[2017-09-07] MEDS: HYDROcodone/Acetaminophen 5/325 mg Tablet PO PRN ×2 (09:02→15:16)
--- NOTE | 2017-09-07 09:30 | PDOC.PN ---
- Subjective Encounter Start Date: 09/07/17 Encounter Start Time: 09:00 Subjective: No changes. Still with sore throat and muscle aches with cough. Oxygen sats -: ok overnight and no respiratory distress. - Objective MAR Reviewed: Yes Vital Signs & Weight: Vital Signs (12 hours) Temp Pulse Resp BP Pulse Ox 09/07/17 07:44 98.7 F 76 24 H 131/49 L 100 09/07/17 04:00 83 22 H 145/53 H 100 09/07/17 00:00 98.9 F 74 24 H 128/52 L 99 Weight Admit Weight 179 lb 3.2 oz Weight 179 lb 3.2 oz I&O: 09/06/17 09/07/17 09/08/17 06:59 06:59 06:59 Intake Total 160 700 Balance 160 700 Result Diagrams: 09/06/17 03:47 09/06/17 03:47 Phys Exam - Physical Examination Constitutional: NAD HEENT: moist MMs occ wheeze, no increased WOB Cardiovascular: RRR, no significant murmur Gastrointestinal: soft, positive bowel sounds PEG in place Neurological: non-focal Psychiatric: normal affect Deviation from normal: multiple non-pressure ulcers Dx/Plan (1) Hyponatremia Code(s): E87.1 - HYPO-OSMOLALITY AND HYPONATREMIA Status: Acute Comment: stable, likely due to CHF, fluid restricted (2) URI (upper respiratory infection) Code(s): J06.9 - ACUTE UPPER RESPIRATORY INFECTION, UNSPECIFIED Status: Acute Qualifiers: URI type: unspecified viral URI Qualified Code(s): J06.9 - Acute upper respiratory infection, unspecified; B97.89 - Other viral agents as the cause of diseases classified elsewhere; B97.89 - Other viral agents as the cause of diseases classified elsewhere (3) HTN (hypertension) Code(s): I10 - ESSENTIAL (PRIMARY) HYPERTENSION Status: Chronic Qualifiers: Hypertension type: essential hypertension Qualified Code(s): I10 - Essential (primary) hypertension Comment: Stable (4) Renal failure (ARF), acute on chronic Code(s): N17.9 - ACUTE KIDNEY FAILURE, UNSPECIFIED; N18.9 - CHRONIC KIDNEY DISEASE, UNSPECIFIED Status: Resolved (5) Afib Code(s): I48.91 - UNSPECIFIED ATRIAL FIBRILLATION Status: Chronic Qualifiers: Atrial fibrillation type: chronic Qualified Code(s): I48.2 - Chronic atrial fibrillation - Plan cont current plan of care Will treat with azithromycin and d/c back to NH. No evidence significant -: bacterial infection or other severe complication from the URI. * . - Discharge Day Encounter end time: 09:30
--- NOTE | 2017-09-07 14:38 | DIS ---
DATE OF ADMISSION: 09/05/2017 DATE OF DISCHARGE: 09/07/2017 PRIMARY CARE PHYSICIAN: Ihsan Pool M.D. Place of residence, [facility]. ADMISSION DIAGNOSES: 1. Generalized weakness. 2. Possible viral syndrome. 3. History of atrial fibrillation. 4. Inflammatory arthritis. 5. Coronary artery disease. DISCHARGE DIAGNOSES: 1. Acute upper respiratory tract infection. 2. Hyponatremia. 3. Hypertension. 4. Acute on chronic renal failure, resolved. 5. Atrial fibrillation. PROCEDURES: Chest x-ray showing a very small left lower lobe effusion versus atelectasis with blunti ng in the left costophrenic angle. PERTINENT LABORATORY DATA: White blood cell count normal at 7.6. INR therapeutic at 2, creatinine 1 .15 on admission down to 1.08 during hospitalization. Cardiac markers indeterminate at 0.047, which is normal for her. Brain natriuretic peptide elevated at 350, but this is actually markedly improved from 2 months ago when it was 653. SUMMARY OF HOSPITAL COURSE: This is an 82-year-old -Serbian female with a history of being b ed bound from severe inflammatory arthritis and generalized weakness from her congestive heart fail e who resides at [facility]. She was noted to have worsening of generalized weakness and some chest tightness and sore throat along with cough, no fevers or chills. The patient was evaluat ed in the emergency room. X-rays above. White blood cell count was not elevated. She was put in [facility] and given nebulizer treatments along with anti-cough medicines. Patient was stable during hospitalization. She did not require any oxygen. Her white blood cell count remained stable. Her sodium did not drop during the hospitalization. She was fluid restricted for this. Her cardiac celia ers remained stable and she continued to have a sore throat and cough. Her lung exam remained unchan ged. The patient was thought to have a likely viral upper respiratory tract infection. Now, we will go ahead and give her a course of azithromycin in case if there are any atypical bacteria causing [facility] and she is stable for transfer back to correction. DISCHARGE MANAGEMENT: Discharge back to [facility]. She was given albuterol nebulizer 2 .5 mg q.4 hours as needed for shortness of breath, wheezing, or cough. She can also use her inhaler. Nourishment, she is to get the standard with fiber 1.5 calorie per mL, tube feeding 65 mL per hour from the x8 o'clock the night until 8:00 in the morning and during the day, she can supplement orally with Aaron b.i.d., and Ensure Life p.r.n. She needs continued speech therapy, physical and occupati onal therapy in the correction along with wound care for her chronic source. She is on a 1500 mL p er 24 hour fluid restriction for her CHF. DISCHARGE MEDICATIONS: 1. Azithromycin 250 mg per tube daily for 4 more days starting tomorrow, she got her first dose here in the hospital. 2. Guaifenesin dextromethorphan 10 mL every 4 hours as needed for coughing. 3. Amiodarone 200 mg per tube daily. 4. Protonix 40 mg per tube daily. 5. Florastor 250 mg per tube daily. 6. Vfend 200 mg per tube twice a day. 7. Coumadin 2.5 mg per tube as per previous. 8. Theragran 1 tablet per tube daily. 9. Tylenol regular strength 650 mg per tube q.4 hours as needed. 10. Tylenol with codeine #3 one per tube q.4 hours as needed for pain. 11. Maalox 30 mg per tube q.6 hours p.r.n. 12. Milk of magnesia 30 mL per tube p.r.n. 13. Albuterol sulfate inhaler 2 puffs every 6 hours as needed for coughing, wheezing, shortness of b reath. 14. Zofran 4 mg per tube q.6 hours p.r.n. 15. Senokot 2 tabs per tube at night as needed for constipation. 16. Dakin's Half Strength solution 1 unit topical daily. FOLLOWUP: She also needs to follow up with her primary care physician in the next week.
[2017-09-07] MEDS ORDERED: Warfarin Sodium 2.5 MG TAB PER TUBE SCH (17:00)
[2017-09-07 17:09] VITALS: BP 115/56; TEMP 99
[2017-09-08] MEDS ORDERED: Azithromycin 200 MG/5 ML Oral Suspension PER TUBE ONE (09:01)
== END 2017-09-07 17:59 | DRG 153 ==
LOC: ERS 15:35 → ERHOLD 18:20 → IMCU/EMU 22:36
PROVIDERS: ADMIT Internal Medicine; ATTEND Internal Medicine
DX: J06.9 Acute upper respiratory infection, unspecified (principal); N17.9 Acute kidney failure, unspecified; E87.1 Hypo-osmolality and hyponatremia; I48.91 Unspecified atrial fibrillation; J98.11 Atelectasis; I25.10 Atherosclerotic heart disease of native coronary artery without angina pectoris; I10 Essential (primary) hypertension; I12.9 Hypertensive chronic kidney disease with stage 1 through stage 4 chronic kidney disease, or unspecified chronic kidney disease; N18.9 Chronic kidney disease, unspecified; M19.90 Unspecified osteoarthritis, unspecified site; L98.499 Non-pressure chronic ulcer of skin of other sites with unspecified severity
CPT/HCPCS: 36415; 71010; 80048; 80053; 82550; 82553; 83880; 84484; 85025; 85610; 85730; 93005; 94640; 96372; G8996-GN-CK; G8997-GN-CK; J2270

== ENCOUNTER 2017-09-09 17:16 | Emergency (ER) | payer MEDICARE, MEDICAID ==
[2017-09-09 18:30] LABS: #Basophils 0.1 thou/uL (0.0-0.2); #Eosinphils 0.1 thou/uL (0.0-0.7); #Lymphocytes 2.9 thou/uL (1.20-3.40); #Neutrophils 5.3 thou/uL (1.40-6.50); %Basophils 0.8 % (0.0-1.0); %Eosinophils 1.6 % (0.0-10.0); %Lymphocytes 30.6 % (21.0-51.0); %Monocytes 10.2 % (0.0-10.0); Mean Platelet Volume 7.2 fL (7.4-10.4); Red Blood Cell (RBC) Count 3.44 mill/uL (4.20-5.40); White Blood Cell (WBC) Count 9.3 thou/uL (4.8-10.8)
[2017-09-09 18:36] LABS: PTT 40.5 SEC (22.9-36.1); Prothrombin Time 17.1 SEC (12.0-14.7)
[2017-09-09] MEDS ORDERED: methylPREDNISolone Sod Succ/PF 125 MG/2 ML VIAL ONE (18:43)
[2017-09-09 18:55] LABS: Troponin I 0.052 ng/mL (< 0.028)
--- NOTE | 2017-09-09 18:56 | RAD ---
UPRIGHT PORTABLE CHEST ONE VIEW: 09/09/17 HISTORY: 82-year-old female with shortness of breath and difficulty breathing from the [facility]. Recently diagnosed with bronchitis. COMPARISON: 09/05/17 Monitor leads overlie the chest. Heart size is borderline. Increased markings are noted bilaterally b ut stable. Chronic dislocation of the left shoulder and marked arthrosis right shoulder. IMPRESSION: Stable minimal cardiomegaly and increased markings bilaterally. No confluent pneumonia or other acute process. POS: [facility]
[2017-09-09 18:57] LABS: ALT (SGPT) 28 U/L (8-55); AST (SGOT) 87 U/L (5-34); Alkaline Phosphatase 211 U/L (40-150); Anion Gap 13 mmol/L (10-20); BUN (Urea Nitrogen) 39 mg/dL (9.8-20.1); Bilirubin, Total 0.7 mg/dL (0.2-1.2); CK (CPK) 93 U/L (29-168); Calc. Creatinine Clearance 0 mL/min (70-130); Calcium 8.6 mg/dL (7.8-10.44); Carbon Dioxide 20 mmol/L (23-31); Chloride 104 mmol/L (98-107); Estimated GFR-MDRD 65; Globulin 6.5 g/dL (2.4-3.5); Protein, Total 8.4 g/dL (6.0-8.3)
== END 2017-09-09 21:00 ==
LOC: ERS 17:16
DX: E86.0 Dehydration (principal); R05 Cough; I48.91 Unspecified atrial fibrillation; I11.0 Hypertensive heart disease with heart failure; I50.9 Heart failure, unspecified; K21.9 Gastro-esophageal reflux disease without esophagitis; M19.90 Unspecified osteoarthritis, unspecified site
CPT/HCPCS: 36415; 71010; 80053; 82553; 83605; 83880; 84484; 85025; 85610; 85730; 87040; 93005; 94760; 96361; 96374; J2930

== ENCOUNTER 2017-09-22 12:09 | Inpatient (IN) | payer MEDICARE, MEDICAID ==
[2017-09-22 13:41] LABS: #Eosinphils 0.1 thou/uL (0.0-0.7); #Monocytes 1.6 thou/uL (0.11-0.59); #Neutrophils 10.7 thou/uL (1.40-6.50); %Basophils 0.1 % (0.0-1.0); %Eosinophils 0.5 % (0.0-10.0); %Lymphocytes 13.9 % (21.0-51.0); %Monocytes 10.9 % (0.0-10.0); %Neutrophils 74.6 % (42.0-75.0); Hemoglobin 12.3 g/dL (12.0-16.0); Mean Corpuscular HGB CONC 30.9 g/dL (32.0-36.0); Mean Corpuscular Hemoglobin 32.2 pg (27.0-31.0); Mean Platelet Volume 8.3 fL (7.4-10.4); Platelet Count 440 thou/uL (130-400); RBC Distribution Width 14.4 % (11.5-14.5); Red Blood Cell (RBC) Count 3.82 mill/uL (4.20-5.40); White Blood Cell (WBC) Count 14.3 thou/uL (4.8-10.8)
[2017-09-22 13:58] LABS: INR-International Normal Ratio 2.6; Prothrombin Time 28.8 SEC (12.0-14.7)
[2017-09-22 14:01] LABS: Bilirubin Small (Negative); Blood, Urine Trace (Negative); Clarity CLOUDY (Clear); Glucose, Urine (Dipstick) Negative (Negative); Leukocyte Moderate (Negative); Nitrite Negative (Negative); Protein, Urine (Dipstick) 100 mg/dL (Neg-Trace); Specific Gravity, Urine 1.023 (1.002-1.036); pH, Urine 6.5 (5.0-9.0)
[2017-09-22 14:06] LABS: Hyaline Casts/LPF 0-3 HYALINE CAST LPF (0-3 Hyaline); Pathc Cast-AUWi Flag 0.13 (0-2.49); RBC/HPF 0-3 HPF (0-3)
[2017-09-22 14:07] LABS: Yeast-AUWi Flag 57.7 (0-25.0)
--- NOTE | 2017-09-22 14:12 | RAD ---
PORTABLE CHEST ONE VIEW: Date: 09-22-17 Time: 1:54 p.m. History: Altered mental status. Comparison: 09-09-17 FINDINGS: The heart is enlarged. The aorta is tortuous. The lungs are well expanded without focal areas of cons olidation, pneumothorax, melissa pleural edema, or pleural effusions. IMPRESSION: No acute process. POS: [facility]
[2017-09-22 14:14] LABS: Bacteria/HPF 1+ HPF (None Seen); Transitional Epithelial 0-3 HPF (0-3); Yeast-All Forms None Seen HPF (None Seen)
[2017-09-22 14:17] LABS: ALT (SGPT) 64 U/L (8-55); AST (SGOT) 103 U/L (5-34); Albumin 1.9 g/dL (3.4-4.8); Alkaline Phosphatase 290 U/L (40-150); Anion Gap 14 mmol/L (10-20); BUN (Urea Nitrogen) 88 mg/dL (9.8-20.1); Bilirubin, Total 1.7 mg/dL (0.2-1.2); CK (CPK) 47 U/L (29-168); Calc. Creatinine Clearance 0 mL/min (70-130); Carbon Dioxide 30 mmol/L (23-31); Chloride 102 mmol/L (98-107); Estimated GFR-MDRD 74; Globulin 6.2 g/dL (2.4-3.5); Glucose 121 mg/dL (83-110); Lipase 338 U/L (8-78); Protein, Total 8.1 g/dL (6.0-8.3); Sodium 143 mmol/L (136-145)
[2017-09-22 14:20] LABS: CKMB 5.2 ng/mL (0-6.6); Potassium 2.8 mmol/L (3.5-5.1); Troponin I 0.103 ng/mL (< 0.028)
[2017-09-22] MEDS ORDERED: Potassium Chloride 20 MEQ TAB ONE (15:21)
[2017-09-22 15:43] LABS: Troponin I 0.106 ng/mL (< 0.028)
[2017-09-22] MEDS ORDERED: Nitrofurantoin Monohyd/M-Cryst 100 MG CAP PO SCH (15:45)
[2017-09-22] MEDS ORDERED: Meropenem 1 GM in Sterile Water 20 ML SLOW IVP SCH (17:00)
[2017-09-22] MEDS ORDERED: Morphine 4 MG/ML VIAL ONE ×2 (17:13→21:59)
[2017-09-22] MEDS ORDERED: Acetaminophen 325 MG TAB PO PRN (20:11)
[2017-09-22] MEDS ORDERED: PROVENTIL INHALER 6.7 G (200 INHALATIONS) INH PRN (20:11)
[2017-09-22] MEDS ORDERED: Guaifenesin DM 100-10/5 ML UDCUP PO PRN (20:11)
[2017-09-22] MEDS ORDERED: Acetaminophen 325 MG TAB PER TUBE PRN (20:11)
[2017-09-22] MEDS ORDERED: Meropenem 1 GM in Sodium Chloride 0.9% 100 ML IVPB SCH (22:00)
[2017-09-22] MEDS: Vancomycin HCl 1 GM in Premix Bag 1 BAG IVPB SCH (23:14)
[2017-09-22] MEDS: Meropenem 1 GM in Sterile Water 20 ML SLOW IVP SCH (23:14)
[2017-09-22] MEDS: Sodium Chloride 0.9% 1,000 ML IV SCH (23:14)
[2017-09-22] MEDS: Docusate 100 MG CAP PO SCH (23:43)
[2017-09-22] MEDS: Famotidine 20 MG TAB PO SCH (23:44)
--- NOTE | 2017-09-23 00:11 | HP ---
REASON FOR ADMISSION: Sepsis, multiple decubitus ulcers, failure to thrive, demand ischemia, severe hypoalbuminemia with severe protein-malnutrition, advanced dementia. HISTORY OF PRESENTING ILLNESS: Patient was sent from [facility] as her face was swollen, she was also coughing and was short of breath. Her bronchitis, which was diagnosed recently was not getting better per family. Her left thigh was bigger than the right, hence they decided to send her to emergency room here. Patient does not give much in the way of history. She seems to have fairly advanced dementia. When a question is asked she tends to look at her grandson for response. PAST MEDICAL AND SURGICAL HISTORY: Chronic bedridden state with severe osteoarthritis of both knees, advanced dementia, multiple hospitalizations here , chronic atrial fibrillation, hypertension, GERD, renal artery stent, cholecystectomy, breast biopsy, ERCP with papillotomy, left hand surgery, colonoscopy, upper endoscopies, severe protein malnutrition, PEG tube, cardiomyopathy. CURRENT MEDICATIONS: Tylenol with Codeine q.6 hourly p.r.n., albuterol inhaler q.6 hourly p.r.n., amiodarone 200 mg p.o. daily, multivitamin 1 tab once daily, Protonix 40 mg daily, Florastor 250 mg daily, Coumadin 2.5 mg p.o. daily. ALLERGIES: PENICILLIN. PERSONAL HISTORY: [facility] and does not abuse alcohol or drugs. No history of smoking. FAMILY HISTORY: There is no strong family history of premature coronary artery disease, stroke, or cancer. There is a history of heart disease in the family, but not premature. REVIEW OF SYSTEMS: Cannot be obtained, as patient is not oriented. PHYSICAL EXAMINATION: GENERAL: The patient is an 82-year-old female who is currently not in any acute distress. VITAL SIGNS: Blood pressure 138/56, pulse 76 per minute, respiratory rate 20 per minute, temperature 98.7 degrees Fahrenheit, saturating 98% on room air. NECK: Supple, no elevated JVD. HEENT: Extraocular muscles intact. Pupils reacting to light. Oral cavity, mucous membranes are dry. No exudates or congestion. CARDIOVASCULAR SYSTEM: S1, S2 heard. Regular rhythm. RESPIRATORY SYSTEM: Air entry 1+ bilateral. ABDOMEN: Soft, bowel sounds heard. No tenderness, rigidity, or guarding. Patient has a 6 x 7 cm ulcer with exudates of the lower abdominal wall. There is also purulence seen. This is covered with dressing. Patient has multiple decubitus over her buttocks and sacral area. These are chronically present in the range from stage 2, 3 to 4. EXTREMITIES: Patient has peripheral edema, 2+ bilateral, no calf tenderness. VASCULAR SYSTEM: Peripheral pulses 1+ bilateral, no gangrene in the toes. CENTRAL NERVOUS SYSTEM: Please note, patient is not oriented. She moves both her upper extremities well. Lower extremities: Barely, she just wiggles her toes. PSYCHIATRIC: Cannot be assessed as patient is not oriented at present. LABORATORY AND X-RAY FINDINGS: White count 14, H&H 12 and 39, platelet count 440 with 74% neutrophils, MCV is 104. PT, INR 28 and 2.6, PTT 51. Potassium is 2.8, BUN 88, creatinine 0.8, glucose 121. Total bilirubin 1.7, AST 103, ALT 64, alkaline phosphatase 290, troponin I 0.10. BNP is 389. Lipase is 338, albumin is 1.9. UA shows moderate leukocyte esterase with 11-20 wbc's and 1+ bacteria. Chest x-ray done shows no acute process. EKG done shows normal sinus rhythm at 76 beats per minute. CLINICAL IMPRESSION AND PLAN: Patient will be admitted to medical floor with multiple medical issues, sepsis, severe-protein malnutrition, multiple decubitus ulcers, urinary tract infection, possible pancreatitis, hypokalemia, possible sepsis. Briceno cultures have been obtained in the ER. We will place her on meropenem and vancomycin. We will obtain consultation with Dr. Langford who has seen her on prior occasions. I have discussed code status with patient's daughter over telephone and her grandson here in the room, they both wanted her to be FULL CODE. Her overall prognosis is poor and is chronically in a bedridden state with multiple decubitus ulcers, severe hypoproteinemia with anasarca and multiple decubitus ulcerations with multiple medical issues. We will obtain palliative care consultation for possible setting up of hospice and DNR status. Goals of care have to be established with her. She has had recurrent hospitalizations here as well. [facility]
[2017-09-23 00:44] VITALS: BMI 28.5
[2017-09-23 06:01] LABS: #Eosinphils 0.1 thou/uL (0.0-0.7); #Lymphocytes 1.9 thou/uL (1.20-3.40); #Monocytes 1.1 thou/uL (0.11-0.59); #Neutrophils 9.3 thou/uL (1.40-6.50); %Basophils 0.3 % (0.0-1.0); %Eosinophils 0.6 % (0.0-10.0); %Lymphocytes 15.2 % (21.0-51.0); %Monocytes 9.1 % (0.0-10.0); %Neutrophils 74.8 % (42.0-75.0); Hemoglobin 12.2 g/dL (12.0-16.0); Mean Corpuscular HGB CONC 30.8 g/dL (32.0-36.0); Mean Corpuscular Hemoglobin 32.5 pg (27.0-31.0); Mean Platelet Volume 8.8 fL (7.4-10.4); Platelet Count 391 thou/uL (130-400); RBC Distribution Width 14.4 % (11.5-14.5); Red Blood Cell (RBC) Count 3.74 mill/uL (4.20-5.40); White Blood Cell (WBC) Count 12.5 thou/uL (4.8-10.8)
[2017-09-23] MEDS: Meropenem 1 GM in Sterile Water 20 ML SLOW IVP SCH (06:24)
[2017-09-23 06:27] LABS: ALT (SGPT) 60 U/L (8-55); AST (SGOT) 117 U/L (5-34); Alkaline Phosphatase 280 U/L (40-150); Anion Gap 17 mmol/L (10-20); BUN (Urea Nitrogen) 82 mg/dL (9.8-20.1); Bilirubin, Total 1.6 mg/dL (0.2-1.2); Calc. Creatinine Clearance 58 mL/min (70-130); Calcium 9.5 mg/dL (7.8-10.44); Carbon Dioxide 23 mmol/L (23-31); Chloride 105 mmol/L (98-107); Estimated GFR-MDRD 79; Globulin 5.8 g/dL (2.4-3.5); Glucose 78 mg/dL (83-110); Protein, Total 7.8 g/dL (6.0-8.3); Sodium 141 mmol/L (136-145)
[2017-09-23] MEDS: Multivitamin W/ Minerals 1 TAB PER TUBE SCH (09:17)
[2017-09-23] MEDS: Famotidine 20 MG TAB PO SCH ×2 (09:17→21:33)
[2017-09-23] MEDS: Docusate 100 MG CAP PO SCH ×2 (09:18→20:57)
[2017-09-23] MEDS: Amiodarone 200 MG TAB PER TUBE SCH (09:18)
[2017-09-23] MEDS: Enoxaparin Sodium 40 MG/0.4 ML SYRINGE SC SCH (09:18)
[2017-09-23] MEDS: Pantoprazole 40 MG GRANULES PACKET PER TUBE SCH (09:19)
[2017-09-23] MEDS: Sodium Chloride 0.9% 1,000 ML IV SCH (09:19)
[2017-09-23] MEDS: Saccharomyces boulardii 250 MG CAP PER TUBE SCH (09:20)
[2017-09-23] MEDS: Acetaminophen/Codeine 30-300mg Tablet PER TUBE PRN (10:33)
[2017-09-23] MEDS: Vancomycin HCl 1 GM in Premix Bag 1 BAG IVPB SCH (10:46)
[2017-09-23] MEDS ORDERED: cefTRIAXone\\ROCEPHIN 1 GM in Sodium Chloride 0.9% 100 ML IVPB SCH (11:45)
--- NOTE | 2017-09-23 12:59 | PDOC.PN ---
- Subjective Encounter Start Date: 09/23/17 Encounter Start Time: 12:58 Subjective: seen and examined still tired c/o pain -Tylenol #3 not working -: wants to eat mashed potato and corn dog - Objective Resuscitation Status: Resuscitation Status FULL:Full Resuscitation Vital Signs & Weight: Vital Signs (12 hours) Temp Pulse Resp BP BP Pulse Ox 09/23/17 11:36 71 15 95 09/23/17 08:00 97.5 F L 77 18 131/75 97 09/23/17 06:08 77 14 96 09/23/17 04:00 98.2 F 77 18 122/80 97 Weight Admit Weight 160 lb 14.992 oz Weight 160 lb 14.992 oz I&O: 09/22/17 09/23/17 09/24/17 06:59 06:59 06:59 Intake Total 280 Balance 280 Result Diagrams: 09/23/17 04:05 09/23/17 04:05 Phys Exam - Physical Examination Constitutional: NAD HEENT: PERRLA, moist MMs, sclera anicteric, TM's clear Neck: no nodes, no JVD, supple, full ROM Respiratory: no wheezing, no rales, no rhonchi, clear to auscultation bilateral Cardiovascular: RRR, no significant murmur, no rub Gastrointestinal: soft, non-tender, no distention, positive bowel sounds Musculoskeletal: no edema, pulses present Deviation from normal: demented Deviation from normal: multiple decubitus ulcers Dx/Plan (1) Infected ulcer of skin Code(s): L98.499 - NON-PRESSURE CHRONIC ULCER OF SKIN OF SITES W UNSP SEVERITY; L08.9 - LOCAL INFECTION OF THE SKIN AND SUBCUTANEOUS TISSUE, UNSP Status: Acute Comment: fungal infection. Will need repeat biopsy from abd wall ulcer for fungal culture - once INR improves (2) Swallowing dysfunction Code(s): R13.10 - DYSPHAGIA, UNSPECIFIED Status: Acute Comment: with severe protein calorie malnutrition (3) Afib Code(s): I48.91 - UNSPECIFIED ATRIAL FIBRILLATION Status: Chronic Qualifiers: Atrial fibrillation type: chronic Qualified Code(s): I48.2 - Chronic atrial fibrillation (4) Decubital ulcer Code(s): L89.90 - PRESSURE ULCER OF UNSPECIFIED SITE, UNSPECIFIED STAGE Status : Chronic (5) FTT (failure to thrive) in adult Status: Chronic (6) Functional quadriplegia Code(s): R53.2 - FUNCTIONAL QUADRIPLEGIA Status: Chronic Comment: due to DJD (7) HTN (hypertension) Code(s): I10 - ESSENTIAL (PRIMARY) HYPERTENSION Status: Chronic Qualifiers: Hypertension type: essential hypertension Qualified Code(s): I10 - Essential (primary) hypertension Comment: Stable (8) Physical deconditioning Code(s): R53.81 - OTHER MALAISE Status: Chronic - Plan plan discussed w/ family, continue antibiotics, PT/OT, social work nurse Awaiting Dr Langford input -: Nutrition boost indicated -: January d/c IVF -: Pain management * .
[2017-09-23 13:02] LABS: HBSAg Index 0.21 S/CO (0-0.99); Hep B Surf AB Non-Reactive (NonReactive); Hep B Surf Ag Non-Reactive S/CO (NonReactive); Hep C IgG Ab Non-Reactive (NonReactive); Hep C Index 0.17 S/CO (0-0.79)
--- NOTE | 2017-09-23 14:13 | CON ---
DATE OF CONSULTATION: 09/23/2017 REASON FOR CONSULTATION: Reevaluate the skin ulcers. HISTORY OF PRESENT ILLNESS: An 82-year-old whom we had seen recently in June last year when she p resented with history of severe mobility impairment related to chronic inflammatory arthropathy and d econditioning, been in a bedbound state for the past 4 years living with various relatives. The glenna ent was admitted in 2015 with chest pain, diarrhea, and episode of gastroenteritis. 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 We were consulted because of neutrophilia with hypotens ion at that time. The patient had cultures done and she had yeast species in the Cota catheter and a contaminated set of blood cultures with micrococcus, all the other cultures were negative. The [facility] ient had a biopsy done of one of the skin ulcers margin under the supervision of Dr. Doss. 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 Unfortunately, cultures from the specimen were negative. We decided to treat her with Voriconazole assuming a filamentous fungus such as Aspergillus or similar. The intention was to alfie at for a protracted period of time with the possibility of mucormycosis was considered as well. She was admitted 2 more times after that admission, once in 07/2017 when she came in with the ulcerations , malnutrition and swallowing impairment which resulted in placement of a gastrostomy tube. She also had tachyarrhythmia and was given amiodarone for it and then transferred to [facility] for co ntinued wound care. She develops supratherapeutic INR levels. Coumadin was held and then reinitiate d. Hospice evaluation was discussed with the family members, initially accepted, but then revoked an d she was then transitioned to [facility]-way unit. In August last year, she came in wi th weakness, some chest tightness and sore throat with some cough, but no fever. White cell count wa s normal and she was discharged back on her antifungal and the other medications. At this time, she was brought back to the hospital with some dyspnea, cough, and enlargement of the left thigh. The in itial blood pressure 130/50, pulse 76, respirations 20, temperature 98.7, O2 sat 98%. Respiratory sy stem exam was unremarkable. Heart showed S1, S2 with regular rate. The ulcers were seen in the abdo rosemarie wall area, those are described below. Initial laboratory findings included Urinalysis with 11- 20 WBCs, protein of 100, white cell count 14,000, hemoglobin 12, platelets 440 with 74% neutrophils, 13% lymphocytes, and 10% monocytes. INR 2.6, creatinine 0.88 with potassium 2.8, AST 103, ALT 64, an d alkaline phosphatase 290. Thos are definitely higher level than had been observed previously. Lip ase was elevated at 338 and also this was higher than previously. Imaging studies included a chest x -ray with no acute process. She is going downstairs now for a CT scan of abdomen and pelvis, this fi gures she is awake. She is disoriented and there is very little that we can ascertain from the inter view. PHYSICAL EXAMINATION: GENERAL: She will follow some commands. She does not appear in distress. HEENT: Ocular movements are conjugate. Oral cavity moist with only 2 or 3 remaining [place] teeth wi th marked gum resorption and periodontitis. NECK: Stiff. LUNGS: With symmetric air entry without crackles or wheezing. HEART: S1, S2, irregular rate. ABDOMEN: Soft, without organomegaly, no ascites. SKIN: Shows those ulcerations did appear to be shallower this time, although the on the breast still has areas of necrosis in the center. The remainder ulcers in the gluteal region are very shallow an d improved compared with the prior visit. The borders of the ulcer in the abdominal area are not as prominent as previously noted and there is much less induration. The patient has no Cota catheter a nd peripheral IV access. EXTREMITIES: She has severe ankylosis of the distal upper and lower extremities, but no edema. Puls es are 1+ in dorsalis pedis. Plantar responses are flexor. NEUROLOGIC: She is awake, knows her name, but otherwise she is disoriented, very poor recall. LABORATORY DATA: Currently, sodium 141, creatinine 0.83. Bilirubin 1.6, AST 117, ALT 60, alkaline p hosphatase 280, albumin 2.0. Two sets of blood cultures thus far are negative. White cell count is at 12.5, hemoglobin 12, platelets 391. 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 DISCUSSION: The ulcers appear to have improved since the last time I saw them in June. A repeat biopsy might be helpful to determine if there are still fungal elements at the border of the abdomina l lesion or the breast lesion. This would help to determine the continuation of her Voriconazole or discontinuation. She has had her respiratory symptoms, although there is no evidence of pneumonia on the chest x-ray. Possibility of influenza A is significant and I would recommend checking respirato ry virus PCR panel. We will switch her to Rocephin, discontinue meropenem and vancomycin. Monitor b lood cultures and again consider re-biopsying the margin of one of the ulcers to see if there are sti ll fungal elements identified to help determine the need to continue antifungal therapy or not. CT o f abdomen and pelvis is being carried out. She has abnormal liver function tests, I do not see a hep atitis serology and this will be ordered. The possibility of drug associated pancreatitis or hepatoc ellular disease is considered.
--- NOTE | 2017-09-23 15:11 | CT ---
NONCONTRAST CT ABDOMEN AND PELVIS: Date: 09-23-17 History: Pancreatitis. Comparison: 01-01-16 FINDINGS: The heart remains enlarged. Vascular calcifications are seen in the coronary arteries as well as the visualized thoracic aorta and abdominal aorta and iliac arteries. Small left pleural effusion with atelectasis is present. There is patchy density seen in the region o f the lingula and the right lower lobe which may be related to volume loss as well. There is an irreg ular nodular density seen within the lingula which is stable when compared to prior studies in 2016 a s well as study in 2010 likely related to an area of mild scarring. Gastrostomy tube is noted in place. Hypodense bilateral renal lesions are again seen, also seen on prior studies including study in 2010 likely related to bilateral renal cysts. There are subtle calcifications in each renal hilum, most li adama related to vascular calcifications. No definite renal calculus is seen and there is no ureteral calculus visualized. There is a punctate calcification which appears to be at the base of the urinary bladder on the left as opposed to within the wall of the urinary bladder. Hepatic granuloma is present. The spleen, pancreas, bilateral adrenal glands, and uterus as well as adnexal structures demonstrate a grossly normal nonenhanced CT appearance. No pancreatic or peripancreatic fluid collection is seen and no peripancreatic inflammatory changes a re seen on this exam. There is a moderate amount of retained fecal material seen within the rectum which is distended. Ther e is mild stranding in the presacral location posterior to the rectum. No definite gas is seen within the wall of the rectum, but stercoral colitis cannot be entirely excluded given slight presacral inf lammatory change which are posterior to the sacrum. These slight inflammatory changes were not seen o n the prior exam. There is mild subcutaneous edema. Degenerative changes are seen in the spine. No free fluid or fluid collection is seen in the abdomen or pelvis. IMPRESSION: 1. Cardiomegaly. 2. Small left pleural effusion. 3. Stable bilateral renal cysts. 4. No CT findings to suggest pancreatitis. There is no peripancreatic fluid collection. 5. Moderate amount of retained fecal material in the rectum which is distended and there is minimal i nflammatory changes seen posterior to the rectum in a presacral location which were not present on th e prior study in 2015. Stercoral colitis cannot be entirely excluded based on this exam. No bowel wal l thickening is appreciated in this region. Clinical correlation is suggested. 6. Tiny approximately 2-3 mm calculus in the left aspect of the urinary bladder which was not seen on prior exam. 7. Subcutaneous edema. 8. Mild height loss of a few lower thoracic and upper lumbar vertebral bodies, unchanged from prior e xam. POS: [facility]
[2017-09-23] MEDS: HYDROcodone/Acetaminophen 5/325 mg Tablet PO PRN (15:38)
[2017-09-23] MEDS: Dextrose 5 % And 0.9 % NaCl 1,000 ML IV SCH (15:41)
[2017-09-23] MEDS: cefTRIAXone\\ROCEPHIN 1 GM, Syringe 0.4 ML in Sterile Water 9.6 ML SLOW IVP SCH (15:42)
[2017-09-23] MEDS ORDERED: Warfarin Sodium 2.5 MG TAB PER TUBE SCH (17:00)
[2017-09-23] MEDS ORDERED: Vancomycin HCl 1 GM in Premix Bag 1 BAG IVPB SCH (22:45)
[2017-09-24] MEDS: Pantoprazole 40 MG GRANULES PACKET PER TUBE SCH (08:07)
[2017-09-24] MEDS: Amiodarone 200 MG TAB PER TUBE SCH (08:08)
[2017-09-24] MEDS: Saccharomyces boulardii 250 MG CAP PER TUBE SCH (08:08)
[2017-09-24] MEDS: Famotidine 20 MG TAB PO SCH ×2 (08:08→20:49)
[2017-09-24] MEDS: Multivitamin W/ Minerals 1 TAB PER TUBE SCH (08:08)
[2017-09-24] MEDS: Docusate 100 MG CAP PO SCH ×2 (08:09→20:42)
[2017-09-24] MEDS: Enoxaparin Sodium 40 MG/0.4 ML SYRINGE SC SCH (09:15)
[2017-09-24] MEDS: cefTRIAXone\\ROCEPHIN 1 GM, Syringe 0.4 ML in Sterile Water 9.6 ML SLOW IVP SCH (14:59)
[2017-09-24] MEDS: Dextrose 5 % And 0.9 % NaCl 1,000 ML IV SCH ×2 (15:04)
--- NOTE | 2017-09-24 18:37 | PDOC.PN ---
- Subjective Encounter Start Date: 09/24/17 Encounter Start Time: 18:36 Subjective: seen and examined feeling ok - Objective Resuscitation Status: Resuscitation Status FULL:Full Resuscitation Vital Signs & Weight: Vital Signs (12 hours) Temp Pulse Resp BP Pulse Ox 09/24/17 08:00 98.6 F 72 20 93 L 09/24/17 07:40 98.6 F 72 20 126/77 93 L Weight Admit Weight 160 lb 14.992 oz Weight 160 lb 14.992 oz I&O: 09/23/17 09/24/17 09/25/17 06:59 06:59 06:59 Intake Total 280 30 Balance 280 30 Result Diagrams: 09/23/17 04:05 09/23/17 04:05 Phys Exam - Physical Examination Constitutional: NAD HEENT: PERRLA, moist MMs, sclera anicteric, TM's clear, oral pharynx no lesions Neck: no nodes, no JVD, supple, full ROM Respiratory: no wheezing, no rales, no rhonchi Cardiovascular: RRR, no significant murmur, no rub Gastrointestinal: soft, non-tender, no distention, positive bowel sounds Dx/Plan (1) Infected ulcer of skin Code(s): L98.499 - NON-PRESSURE CHRONIC ULCER OF SKIN OF SITES W UNSP SEVERITY; L08.9 - LOCAL INFECTION OF THE SKIN AND SUBCUTANEOUS TISSUE, UNSP Status: Acute Comment: fungal infection. Will need repeat biopsy from abd wall ulcer for fungal culture - once INR improves (2) Swallowing dysfunction Code(s): R13.10 - DYSPHAGIA, UNSPECIFIED Status: Acute Comment: with severe protein calorie malnutrition (3) Afib Code(s): I48.91 - UNSPECIFIED ATRIAL FIBRILLATION Status: Chronic Qualifiers: Atrial fibrillation type: chronic Qualified Code(s): I48.2 - Chronic atrial fibrillation (4) Decubital ulcer Code(s): L89.90 - PRESSURE ULCER OF UNSPECIFIED SITE, UNSPECIFIED STAGE Status : Chronic (5) FTT (failure to thrive) in adult Status: Chronic (6) Functional quadriplegia Code(s): R53.2 - FUNCTIONAL QUADRIPLEGIA Status: Chronic Comment: due to DJD (7) HTN (hypertension) Code(s): I10 - ESSENTIAL (PRIMARY) HYPERTENSION Status: Chronic Qualifiers: Hypertension type: essential hypertension Qualified Code(s): I10 - Essential (primary) hypertension Comment: Stable (8) Physical deconditioning Code(s): R53.81 - OTHER MALAISE Status: Chronic (9) MRSA bacteremia Code(s): R78.81 - BACTEREMIA Status: Acute - Plan plan discussed w/ family, PT/OT, adoption social worker, speech therapy, respiratory therapy Tolerating po intake to an extent--Puree diet and nectar thick speech -: Skin biiopsy to re-evaluate for possible fungal infection -: ID and surgery following -: Resume vancomycin pending ID decision on it * .
[2017-09-24] MEDS: Vancomycin HCl 1 GM in Premix Bag 1 BAG IVPB SCH (20:45)
[2017-09-24] MEDS: Sodium Chloride 0.9% 1,000 ML IV SCH (20:45)
[2017-09-24] MEDS: HYDROcodone/Acetaminophen 5/325 mg Tablet PO PRN (22:27)
[2017-09-25 04:52] LABS: Prothrombin Time 42.9 SEC (12.0-14.7)
[2017-09-25 05:02] LABS: Anion Gap 13 mmol/L (10-20); BUN (Urea Nitrogen) 44 mg/dL (9.8-20.1); Calc. Creatinine Clearance 64 mL/min (70-130); Calcium 8.4 mg/dL (7.8-10.44); Carbon Dioxide 25 mmol/L (23-31); Chloride 106 mmol/L (98-107); Estimated GFR-MDRD 88; Glucose 116 mg/dL (83-110); Potassium 3.4 mmol/L (3.5-5.1); Sodium 141 mmol/L (136-145)
[2017-09-25 05:11] LABS: INR-International Normal Ratio 4.2
[2017-09-25] MEDS: Multivitamin W/ Minerals 1 TAB PER TUBE SCH (08:05)
[2017-09-25] MEDS: Docusate 100 MG CAP PO SCH ×2 (08:05→20:19)
[2017-09-25] MEDS: Amiodarone 200 MG TAB PER TUBE SCH (08:05)
[2017-09-25] MEDS: Pantoprazole 40 MG GRANULES PACKET PER TUBE SCH (08:05)
[2017-09-25] MEDS: Saccharomyces boulardii 250 MG CAP PER TUBE SCH (08:05)
[2017-09-25] MEDS: Famotidine 20 MG TAB PO SCH ×2 (08:06→20:41)
[2017-09-25] MEDS ORDERED: Enoxaparin Sodium 40 MG/0.4 ML SYRINGE SC SCH (09:00)
--- NOTE | 2017-09-25 09:25 | PDOC.PN ---
- Subjective Encounter Start Date: 09/25/17 Encounter Start Time: 09:24 Subjective: seen and examined with no new complaint - Objective Resuscitation Status: Resuscitation Status FULL:Full Resuscitation Vital Signs & Weight: Vital Signs (12 hours) Temp Pulse Resp BP Pulse Ox 09/25/17 08:00 98.2 F 80 18 129/77 97 09/25/17 06:26 85 14 95 09/25/17 00:14 80 12 94 L Weight Admit Weight 160 lb 14.992 oz Weight 160 lb 14.992 oz I&O: 09/24/17 09/25/17 09/26/17 06:59 06:59 06:59 Intake Total 30 1380 Balance 30 1380 Result Diagrams: 09/23/17 04:05 09/25/17 03:32 Phys Exam - Physical Examination Constitutional: NAD HEENT: PERRLA, moist MMs, sclera anicteric, TM's clear Neck: no nodes, no JVD, supple, full ROM Respiratory: no wheezing, no rales, no rhonchi, clear to auscultation bilateral Cardiovascular: RRR, no significant murmur, no rub Gastrointestinal: soft, non-tender, no distention Musculoskeletal: no edema, pulses present Dx/Plan (1) Infected ulcer of skin Code(s): L98.499 - NON-PRESSURE CHRONIC ULCER OF SKIN OF SITES W UNSP SEVERITY; L08.9 - LOCAL INFECTION OF THE SKIN AND SUBCUTANEOUS TISSUE, UNSP Status: Acute Comment: fungal infection. Will need repeat biopsy from abd wall ulcer for fungal culture - once INR improves (2) Swallowing dysfunction Code(s): R13.10 - DYSPHAGIA, UNSPECIFIED Status: Acute Comment: with severe protein calorie malnutrition (3) Afib Code(s): I48.91 - UNSPECIFIED ATRIAL FIBRILLATION Status: Chronic Qualifiers: Atrial fibrillation type: chronic Qualified Code(s): I48.2 - Chronic atrial fibrillation (4) Decubital ulcer Code(s): L89.90 - PRESSURE ULCER OF UNSPECIFIED SITE, UNSPECIFIED STAGE Status : Chronic (5) FTT (failure to thrive) in adult Status: Chronic (6) Functional quadriplegia Code(s): R53.2 - FUNCTIONAL QUADRIPLEGIA Status: Chronic Comment: due to DJD (7) HTN (hypertension) Code(s): I10 - ESSENTIAL (PRIMARY) HYPERTENSION Status: Chronic Qualifiers: Hypertension type: essential hypertension Qualified Code(s): I10 - Essential (primary) hypertension Comment: Stable (8) Physical deconditioning Code(s): R53.81 - OTHER MALAISE Status: Chronic (9) MRSA bacteremia Code(s): R78.81 - BACTEREMIA Status: Acute - Plan plan discussed w/ family, continue antibiotics, PT/OT, adoption social worker, respiratory therapy ID and surgery following -: Possible skin biopsy * .
[2017-09-25] MEDS: Vancomycin HCl 1 GM in Premix Bag 1 BAG IVPB SCH ×2 (09:39→21:03)
[2017-09-25] MEDS: cefTRIAXone\\ROCEPHIN 1 GM, Syringe 0.4 ML in Sterile Water 9.6 ML SLOW IVP SCH (12:33)
[2017-09-25] MEDS: Sodium Chloride 0.9% 1,000 ML IV SCH (12:33)
[2017-09-25] MEDS: HYDROcodone/Acetaminophen 5/325 mg Tablet PO PRN ×2 (13:59→20:41)
[2017-09-25 20:45] LABS: Vancomycin, Trough 33.1 ug/mL
[2017-09-25] MEDS ORDERED: VANCOMYCIN IVPB PRN (23:37)
[2017-09-26] MEDS: Sodium Chloride 0.9% 1,000 ML IV SCH ×2 (01:53→15:42)
[2017-09-26 04:55] LABS: INR-International Normal Ratio 3.7; Prothrombin Time 38.3 SEC (12.0-14.7)
[2017-09-26] MEDS: Pantoprazole 40 MG GRANULES PACKET PER TUBE SCH (07:55)
[2017-09-26] MEDS: Famotidine 20 MG TAB PO SCH ×2 (07:55→22:03)
[2017-09-26] MEDS: Multivitamin W/ Minerals 1 TAB PER TUBE SCH (07:55)
[2017-09-26] MEDS: Amiodarone 200 MG TAB PER TUBE SCH (07:55)
[2017-09-26] MEDS: Saccharomyces boulardii 250 MG CAP PER TUBE SCH (07:55)
[2017-09-26] MEDS: HYDROcodone/Acetaminophen 5/325 mg Tablet PO PRN ×3 (07:55→22:03)
[2017-09-26] MEDS: Docusate 100 MG CAP PO SCH ×3 (07:55→22:03)
[2017-09-26 09:49] LABS: Vancomycin, Random 27.2 ug/mL (See Comment)
--- NOTE | 2017-09-26 10:41 | PQF ---
DATE: 09-26-17 ATTN: DR. ADAM LIZARRAGA Please exercise your independent, professional judgment in responding to the clarification form. Clinical indicators are provided on the bottom of this form for your review Please check appropriate box(s) to clarify if the following diagnosis has been ruled in our ruled out: SEPSIS (CDI/Coding list diagnosis here) [ ] Ruled in diagnosis [ ] Continue to treat [ ] Resolved [ ] Ruled out diagnosis [ ] Other diagnosis [ ] Unable to determine In addition, please specify: Present on Admission (POA): [ ] Yes [ ] No [ ] Unable to determine For continuity of documentation, please document condition throughout progress notes and discharge summary. Thank You. CLINICAL INDICATORS - SIGNS / SYMPTOMS / LABS H&P: PATIENT WILL NE ADMITTED TO MEDICAL FLOOR WITH MULTIPLE MEDICAL ISSUES, SEPSIS, SEVERE PROTEIN MALNUTRITION, MULTIPLE DECUB ULCERS, UTI, POSSIBLE PANCREATITIS, HYPOKALEMIA, POSSIBLE SEPSIS WBC: 14.3, 12.5 RISK FACTORS: H&P: PATIENT WILL NE ADMITTED TO MEDICAL FLOOR WITH MULTIPLE MEDICAL ISSUES, SEPSIS, SEVERE PROTEIN MALNUTRITION, MULTIPLE DECUB ULCERS, UTI, POSSIBLE PANCREATITIS, HYPOKALEMIA, POSSIBLE SEPSIS H&P: CHRONIC BEDRIDDEN STATE WITH SEVERE OSTEOARTHIRITIS TREATMENTS: (ER) INVCASEY, IVF (09-23-17) RAKESH AMAYA (This form is maintained as a part of the permanent medical record) 2014 [employer], [employer]. All Rights Reserved SVEN [email or web address] Office: [phone] [facility] HOSPITALAlbin
[2017-09-26] MEDS: cefTRIAXone\\ROCEPHIN 1 GM, Syringe 0.4 ML in Sterile Water 9.6 ML SLOW IVP SCH (11:54)
[2017-09-26] MEDS ORDERED: Magnesium Citrate 300 ML BOT PER TUBE ONE (15:30)
--- NOTE | 2017-09-26 18:57 | PDOC.PN ---
- Subjective Encounter Start Date: 09/26/17 Encounter Start Time: 18:55 Subjective: Seen and examined c/o constipation - Objective Resuscitation Status: Resuscitation Status FULL:Full Resuscitation Vital Signs & Weight: Vital Signs (12 hours) Temp Pulse Resp BP Pulse Ox 09/26/17 08:00 97.9 F 85 22 H 156/85 H 96 Weight Admit Weight 160 lb 14.992 oz Weight 160 lb 14.992 oz I&O: 09/25/17 09/26/17 09/27/17 06:59 06:59 06:59 Intake Total 1380 1660 Output Total 2 Balance 1380 1658 Result Diagrams: 09/23/17 04:05 09/25/17 03:32 Phys Exam - Physical Examination Constitutional: NAD HEENT: PERRLA, moist MMs, sclera anicteric, TM's clear, oral pharynx no lesions Neck: no nodes, no JVD, supple, full ROM Respiratory: no wheezing, no rales, no rhonchi, clear to auscultation bilateral Cardiovascular: RRR, no significant murmur, no rub Gastrointestinal: soft, non-tender, no distention, positive bowel sounds Musculoskeletal: no edema, pulses present Dx/Plan (1) Infected ulcer of skin Code(s): L98.499 - NON-PRESSURE CHRONIC ULCER OF SKIN OF SITES W UNSP SEVERITY; L08.9 - LOCAL INFECTION OF THE SKIN AND SUBCUTANEOUS TISSUE, UNSP Status: Acute Comment: fungal infection. Will need repeat biopsy from abd wall ulcer for fungal culture - once INR improves (2) Swallowing dysfunction Code(s): R13.10 - DYSPHAGIA, UNSPECIFIED Status: Acute Comment: with severe protein calorie malnutrition (3) Afib Code(s): I48.91 - UNSPECIFIED ATRIAL FIBRILLATION Status: Chronic Qualifiers: Atrial fibrillation type: chronic Qualified Code(s): I48.2 - Chronic atrial fibrillation (4) Decubital ulcer Code(s): L89.90 - PRESSURE ULCER OF UNSPECIFIED SITE, UNSPECIFIED STAGE Status : Chronic (5) FTT (failure to thrive) in adult Status: Chronic (6) Functional quadriplegia Code(s): R53.2 - FUNCTIONAL QUADRIPLEGIA Status: Chronic Comment: due to DJD (7) HTN (hypertension) Code(s): I10 - ESSENTIAL (PRIMARY) HYPERTENSION Status: Chronic Qualifiers: Hypertension type: essential hypertension Qualified Code(s): I10 - Essential (primary) hypertension Comment: Stable (8) Physical deconditioning Code(s): R53.81 - OTHER MALAISE Status: Chronic (9) MRSA bacteremia Code(s): R78.81 - BACTEREMIA Status: Acute (10) Constipation Code(s): K59.00 - CONSTIPATION, UNSPECIFIED Status: Acute (11) Sepsis affecting skin Code(s): A41.9 - SEPSIS, UNSPECIFIED ORGANISM Status: Ruled-out - Plan plan discussed w/ family, continue antibiotics, PT/OT, director social, respiratory therapy Start magcitrate -: Dispo planning -: Paliative care team--not sure the outcome of the meeting * .
[2017-09-27] MEDS: Acetaminophen/Codeine 30-300mg Tablet PER TUBE PRN (00:20)
[2017-09-27] MEDS: Sodium Chloride 0.9% 1,000 ML IV SCH ×2 (04:39→17:21)
[2017-09-27 05:42] LABS: INR-International Normal Ratio 3.5; Prothrombin Time 36.4 SEC (12.0-14.7)
[2017-09-27] MEDS: HYDROcodone/Acetaminophen 5/325 mg Tablet PO PRN ×3 (05:42→18:02)
[2017-09-27 08:52] LABS: Vancomycin, Random 21.2 ug/mL (See Comment)
[2017-09-27] MEDS: Amiodarone 200 MG TAB PER TUBE SCH (09:07)
[2017-09-27] MEDS: Famotidine 20 MG TAB PO SCH ×2 (09:07→20:52)
[2017-09-27] MEDS: Multivitamin W/ Minerals 1 TAB PER TUBE SCH (09:07)
[2017-09-27] MEDS: Docusate 100 MG CAP PO SCH ×2 (09:07→20:52)
[2017-09-27] MEDS: Pantoprazole 40 MG GRANULES PACKET PER TUBE SCH (09:07)
[2017-09-27] MEDS: Saccharomyces boulardii 250 MG CAP PER TUBE SCH (09:07)
[2017-09-27] MEDS: cefTRIAXone\\ROCEPHIN 1 GM, Syringe 0.4 ML in Sterile Water 9.6 ML SLOW IVP SCH (12:52)
--- NOTE | 2017-09-27 19:16 | PDOC.PN ---
- Subjective Encounter Start Date: 09/27/17 Encounter Start Time: 19:15 Subjective: Seem amd examined with no new complaint - Objective Resuscitation Status: Resuscitation Status FULL:Full Resuscitation Vital Signs & Weight: Vital Signs (12 hours) Temp Pulse Resp BP Pulse Ox 09/27/17 18:28 79 16 95 09/27/17 08:00 97.8 F 88 22 H 137/76 94 L 09/27/17 07:18 78 20 96 Weight Admit Weight 160 lb 14.992 oz Weight 160 lb 14.992 oz I&O: 09/26/17 09/27/17 09/28/17 06:59 06:59 06:59 Intake Total 1660 1840 600 Output Total 2 Balance 1658 1840 600 Result Diagrams: 09/23/17 04:05 09/25/17 03:32 Phys Exam - Physical Examination Constitutional: NAD HEENT: PERRLA, sclera anicteric, TM's clear, oral pharynx no lesions Neck: no nodes, no JVD, supple, full ROM Respiratory: no wheezing, no rales, no rhonchi Cardiovascular: RRR, no significant murmur, no rub Dx/Plan (1) Infected ulcer of skin Code(s): L98.499 - NON-PRESSURE CHRONIC ULCER OF SKIN OF SITES W UNSP SEVERITY; L08.9 - LOCAL INFECTION OF THE SKIN AND SUBCUTANEOUS TISSUE, UNSP Status: Acute Comment: fungal infection. Will need repeat biopsy from abd wall ulcer for fungal culture - once INR improves (2) Swallowing dysfunction Code(s): R13.10 - DYSPHAGIA, UNSPECIFIED Status: Acute Comment: with severe protein calorie malnutrition (3) Afib Code(s): I48.91 - UNSPECIFIED ATRIAL FIBRILLATION Status: Chronic Qualifiers: Atrial fibrillation type: chronic Qualified Code(s): I48.2 - Chronic atrial fibrillation (4) Decubital ulcer Code(s): L89.90 - PRESSURE ULCER OF UNSPECIFIED SITE, UNSPECIFIED STAGE Status : Chronic (5) FTT (failure to thrive) in adult Status: Chronic (6) Functional quadriplegia Code(s): R53.2 - FUNCTIONAL QUADRIPLEGIA Status: Chronic Comment: due to DJD (7) HTN (hypertension) Code(s): I10 - ESSENTIAL (PRIMARY) HYPERTENSION Status: Chronic Qualifiers: Hypertension type: essential hypertension Qualified Code(s): I10 - Essential (primary) hypertension Comment: Stable (8) Physical deconditioning Code(s): R53.81 - OTHER MALAISE Status: Chronic (9) MRSA bacteremia Code(s): R78.81 - BACTEREMIA Status: Acute (10) Constipation Code(s): K59.00 - CONSTIPATION, UNSPECIFIED Status: Acute (11) Sepsis affecting skin Code(s): A41.9 - SEPSIS, UNSPECIFIED ORGANISM Status: Ruled-out - Plan * .
[2017-09-27] MEDS ORDERED: Vancomycin HCl 1.25 GM in Sodium Chloride 0.9% 250 ML 250 ML IVPB SCH (21:00)
[2017-09-28] MEDS: HYDROcodone/Acetaminophen 5/325 mg Tablet PO PRN ×2 (03:47→13:33)
[2017-09-28 04:44] LABS: INR-International Normal Ratio 3.4; Prothrombin Time 36.1 SEC (12.0-14.7)
[2017-09-28 08:08] VITALS: BP 94/51; TEMP 97
[2017-09-28] MEDS: Docusate 100 MG CAP PO SCH (09:05)
[2017-09-28] MEDS: Amiodarone 200 MG TAB PER TUBE SCH (09:05)
[2017-09-28] MEDS: Saccharomyces boulardii 250 MG CAP PER TUBE SCH (09:05)
[2017-09-28] MEDS: Multivitamin W/ Minerals 1 TAB PER TUBE SCH (09:06)
[2017-09-28] MEDS: Sodium Chloride 0.9% 1,000 ML IV SCH (09:06)
[2017-09-28] MEDS: Pantoprazole 40 MG GRANULES PACKET PER TUBE SCH (09:06)
[2017-09-28] MEDS: Famotidine 20 MG TAB PO SCH (09:06)
[2017-09-28] MEDS: cefTRIAXone\\ROCEPHIN 1 GM, Syringe 0.4 ML in Sterile Water 9.6 ML SLOW IVP SCH (13:35)
--- NOTE | 2017-09-29 15:31 | DIS ---
For the details of the history and physical and the consultative notes, please refer to dictations on record. SUMMARY: This is an 82-year-old female patient who presented here and got diagnosed with sepsis in t he context of multiple decubitus ulcers and deconditioning. The patient was evaluated and consulted upon by Dr. Langford, who felt the margin of the ulcers may need to be biopsied to identify the continue d presence of fungal infection vis-a-vi the continuation of the Voriconazole. In any case, the patie nt was continued on antimicrobial therapy throughout this hospitalization. Diagnoses managed during this hospitalization: 1. Sepsis in the context of problem #2. 2. Multiple decubitus ulcers. 3. Failure to thrive/severe protein energy malnutrition. 4. Advanced dementia. 5. Morbid obesity. The patient continued to maintain some sustained clinical improvement and on the was deemed okay for discharge. VITAL SIGNS: Afebrile with temperature 97, pulse 81, respiratory rate 16, O2 sat of 97% on room air, blood pressure 94/51. The rest of the physical findings, please refer to the notes that are already documented in the chart . The patient subsequently got discharged on the following medications: Tylenol with codeine, albutero l 2 puffs inhalation q.6h. p.r.n., Maalox 30 mL per tube q.6h., amiodarone 200 mg p.o. daily, magnesi um 30 mL per tube, multivitamin, Zofran p.r.n., Protonix 40 mg p.o. daily, Florastor 250 mg daily, S enokot-S 2 tabs, Coumadin 2.5 mg. DISCHARGE INSTRUCTIONS: 1. Stay compliant with medication. 2. Represent here in case of any relapse or deterioration in clinical condition. 3. Further management to be dependent on the clinical course. Total time spent including the face to face encounter 32 minutes.
--- NOTE | 2017-10-15 15:14 | EKG ---
Test Reason : Blood Pressure : / mmHG Vent. Rate : 076 BPM Atrial Rate : 359 BPM P-R Int : 000 ms QRS Dur : 102 ms QT Int : 442 ms P-R-T Axes : 000 -24 -63 degrees QTc Int : 497 ms Atrial flutter with variable A-V block Nonspecific ST and T wave abnormality Abnormal ECG Confirmed by PARRIS MIRANDA, KIMBERLYE ([id number]), news copy editor ENEDINA WINCHESTER ([id number]) on 10/15/2017 3:14:15 PM Referred By: Confirmed By:KIMBERLEY NYE MD
== END 2017-09-28 16:22 | DRG 871 ==
LOC: ERS 12:09 → ERHOLD 16:50 → T4-A 22:17
PROVIDERS: ADMIT Internal Medicine; ATTEND Internal Medicine
DX: A41.9 Sepsis, unspecified organism (principal); E43 Unspecified severe protein-calorie malnutrition; E88.09 Other disorders of plasma-protein metabolism, not elsewhere classified; I24.8 Other forms of acute ischemic heart disease; R53.2 Functional quadriplegia; I48.2 Chronic atrial fibrillation; L89.90 Pressure ulcer of unspecified site, unspecified stage; E66.01 Morbid (severe) obesity due to excess calories; N39.0 Urinary tract infection, site not specified; F03.90 Unspecified dementia, unspecified severity, without behavioral disturbance, psychotic disturbance, mood disturbance, and anxiety; M06.9 Rheumatoid arthritis, unspecified; R13.10 Dysphagia, unspecified; K21.9 Gastro-esophageal reflux disease without esophagitis; E87.6 Hypokalemia; M17.0 Bilateral primary osteoarthritis of knee; M24.60 Ankylosis, unspecified joint; I10 Essential (primary) hypertension; K59.00 Constipation, unspecified; L98.499 Non-pressure chronic ulcer of skin of other sites with unspecified severity; L08.9 Local infection of the skin and subcutaneous tissue, unspecified; Z66 Do not resuscitate; Z68.28 Body mass index [BMI] 28.0-28.9, adult; R62.7 Adult failure to thrive; Z88.0 Allergy status to penicillin; Z82.49 Family history of ischemic heart disease and other diseases of the circulatory system
CPT/HCPCS: 36415; 51701; 71045; 74176; 80048; 80053; 80202; 81003; 81015; 82550; 82553; 83690; 83880; 84484; 85025; 85610; 85730; 86706; 86803; 87040; 87077; 87086; 87149; 87186; 87340; 87633; 93005; 94640; 96361; 96374; 96375; 96376; A4216; G8996-GN-CL; G8997-GN-CL; J0696; J1650; J2185; J2270; J3370; J7042; J7050; J7620

== ENCOUNTER 2017-10-06 15:28 | Inpatient (IN) | payer MEDICARE, MEDICAID ==
[2017-10-06 16:41] LABS: #Basophils 0.1 thou/uL (0.0-0.2); #Eosinphils 0.1 thou/uL (0.0-0.7); #Monocytes 1.4 thou/uL (0.11-0.59); %Basophils 0.4 % (0.0-1.0); %Eosinophils 0.7 % (0.0-10.0); %Lymphocytes 23.7 % (21.0-51.0); %Monocytes 11.3 % (0.0-10.0); %Neutrophils 63.9 % (42.0-75.0); Hemoglobin 10.6 g/dL (12.0-16.0); Mean Corpuscular HGB CONC 30.8 g/dL (32.0-36.0); Mean Corpuscular Hemoglobin 31.9 pg (27.0-31.0); Mean Platelet Volume 8.6 fL (7.4-10.4); Platelet Count 492 thou/uL (130-400); RBC Distribution Width 16.1 % (11.5-14.5); Red Blood Cell (RBC) Count 3.32 mill/uL (4.20-5.40); White Blood Cell (WBC) Count 12.5 thou/uL (4.8-10.8)
[2017-10-06 16:56] LABS: INR-International Normal Ratio 3.8; Prothrombin Time 39.1 SEC (12.0-14.7)
[2017-10-06 16:57] LABS: PTT 74.8 SEC (22.9-36.1)
[2017-10-06 17:07] LABS: Troponin I 0.086 ng/mL (< 0.028)
[2017-10-06 17:10] LABS: CKMB 8.1 ng/mL (0-6.6)
--- NOTE | 2017-10-06 17:18 | RAD ---
FRONTAL VIEW CHEST 10/06/17 COMPARISON: 09/22/17 CLINICAL HISTORY: Chest pain with coughing. FINDINGS: There is enlargement of the cardiac silhouette. Bilateral perihilar interstitial prominence is seen. There is mild pleural based density at each inferior hemithorax. There is chronic deformity of the le ft shoulder and prominent degenerative change of the right shoulder. Vascular calcification is presen t. IMPRESSION: CHF. Minimal pleural fluid suggested bilaterally, limited by frontal view. As necessary, followup may be o btained with dedicated two view chest. POS: SIS
[2017-10-06 17:33] LABS: Bilirubin Moderate (Negative); Blood, Urine Negative (Negative); Clarity CLOUDY (Clear); Glucose, Urine (Dipstick) Negative (Negative); Leukocyte Trace (Negative); Nitrite Negative (Negative); Protein, Urine (Dipstick) 100 mg/dL (Neg-Trace); Specific Gravity, Urine 1.023 (1.002-1.036); Urobilinogen 0.2 mg/dL (0.2-1.0)
[2017-10-06 17:35] LABS: Pathc Cast-AUWi Flag 3.25 (0-2.49); Squamous Epithelial 0-3 HPF (0-3); WBC/HPF 0-3 HPF (0-3)
[2017-10-06 17:50] LABS: RBC/HPF None Seen HPF (0-3)
[2017-10-06 17:51] LABS: Bacteria/HPF 3+ HPF (None Seen); Hyaline Casts/LPF 0-3 HYALINE CAST LPF (0-3 Hyaline); Manual Microscopic Reviewed? No Path Casts Seen; Other Casts/LPF 0-3 FINELY GRAN LPF (0-3 Hyaline)
[2017-10-06 18:45] LABS: Albumin 1.6 g/dL (3.4-4.8)
[2017-10-06 18:46] LABS: Chloride 108 mmol/L (98-107); Potassium 4.1 mmol/L (3.5-5.1); Sodium 136 mmol/L (136-145)
[2017-10-06 18:47] LABS: Calcium 8.9 mg/dL (7.8-10.44)
[2017-10-06 18:48] LABS: Globulin 6.3 g/dL (2.4-3.5); Glucose 79 mg/dL (83-110); Protein, Total 7.9 g/dL (6.0-8.3)
[2017-10-06 18:49] LABS: Anion Gap 14 mmol/L (10-20); Carbon Dioxide 18 mmol/L (23-31)
[2017-10-06 18:50] LABS: Bilirubin, Total 4.1 mg/dL (0.2-1.2)
[2017-10-06 18:51] LABS: Alkaline Phosphatase 343 U/L (40-150); Calc. Creatinine Clearance 0 mL/min (70-130); Estimated GFR-MDRD 62
[2017-10-06 18:52] LABS: BUN (Urea Nitrogen) 50 mg/dL (9.8-20.1)
[2017-10-06 18:53] LABS: AST (SGOT) 151 U/L (5-34)
[2017-10-06 18:54] LABS: ALT (SGPT) 71 U/L (8-55); CK (CPK) 57 U/L (29-168); Lipase 87 U/L (8-78)
[2017-10-06 20:39] LABS: Troponin I 0.066 ng/mL (< 0.028)
[2017-10-06] MEDS ORDERED: Ondansetron HCl/PF 4 MG/2 ML Vial IVP PRN (22:00)
[2017-10-06] MEDS ORDERED: Acetaminophen 325 MG TAB PO PRN ×2 (22:00→23:14)
[2017-10-06] MEDS ORDERED: Ondansetron ODT 4 MG TAB SL PRN (22:00)
--- NOTE | 2017-10-06 23:04 | HP ---
PRIMARY CARE PHYSICIAN: Dr. Ihsan Pool. CHIEF COMPLAINT: Stomach and chest hurting as well as back. HISTORY OF PRESENT ILLNESS: Ms. Briceño is a pleasant 82-year-old female that has a history of demen tia. She also has a history of severe osteoarthritis which has led to her being chronically bedridde n. She resides at the [facility]. She was sent over due to pains in her chest, stomach and back. Due to her dementia, it is hard to get a detailed history regarding her symptoms. However , when I examined her, the pains that she is feeling in her stomach and back seemed to be associated with some chronic decubitus ulcers which are present. She also has been coughing. Her daughter says for the last 2 months, the cough is productive of some thick yellow-green fluid. There has been no fever, or chills that they are aware of. She has an occasional sore throat and they also note that s he has been wheezing for the last 2 months as well and she does complain of some shortness of breath as well. Otherwise, no other history is obtainable. It is remarkable that the patient did start to cry in pain and was pointing to one of the wounds and it appears as if she was in fairly severe pain. REVIEW OF SYSTEMS: Again unobtainable due to her dementia. PAST MEDICAL HISTORY: Significant for chronically bedridden, osteoarthritis, dementia, atrial fibril lation, hypertension, gastroesophageal reflux disease, renal artery stenosis as well as hypoalbuminem ia and severe protein-calorie malnutrition. PAST SURGICAL HISTORY: She has had a cholecystectomy, breast biopsy, ERCP, left hand surgery, colono scopy, PEG tube placement, and sharp debridement of the decubitus in the past. ALLERGIES: PENICILLIN. SOCIAL HISTORY: She is a nonsmoker, nondrinker. CODE STATUS: FULL CODE. FAMILY HISTORY: Significant for heart disease, gout, diabetes mellitus, arthritis, sciatica. CURRENT MEDICATIONS: Her daughter says these are the same as that on her previous discharge medicati ons include at that time Coumadin 2.5 mg daily, Protonix 40 mg daily, multivitamin once a day, doxycy real 100 mg daily, amiodarone 200 mg daily, Tylenol with Codeine p.r.n., and Vfend. PHYSICAL EXAMINATION: GENERAL: The patient is alert. VITAL SIGNS: Her blood pressure was 121/49, heart rate 67, respiratory rate of 14, temperature is 98 .1. HEENT: Pupils are equal, round, and reactive. Extraocular muscles are intact. Her sclerae are anic teric. Throat, no erythema, no exudates. NECK: No adenopathy, but she did have some increase in jugular venous distention. LUNGS: Difficult to evaluate, but she has some coarse breath sounds and some mild expiratory wheezin g. CARDIOVASCULAR: Heart sounds are normal. Normal rate and rhythm. No murmurs, clicks or rubs. ABDOMEN: Soft, it is nontender, nondistended; however, on the abdomen, there is a fairly large, appr oximately 10 cm oval-shaped decubitus ulcer approximately stage 3 with some areas of eschar around th e edges as well as some induration and this is almost immediately below the PEG tube site. She had a nother area on the left breast which was approximately another stage III decubitus and on the left si de of her back, another fairly large irregular shaped lesion as well. The sacrum was looked at and t here were some areas of old decubitus which appeared to be healed areas of hypopigmentation, but the skin is intact as well as on the upper back as well. LABORATORY RESULTS: Urinalysis was significant for 3+ bacteria, moderate bilirubin. White blood dannie l count is 12.5, hemoglobin 10.6, hematocrit is 34.4, platelet count is 492. INR was 3.8. Sodium wa s 136, potassium 4.1, chloride is 108, CO2 is 18. The BUN and creatinine are still pending. Glucose was 79. BNP was 756. Albumin was 1.6. Chest x-ray showed some bibasilar opacities, and minimal bi lateral pleural effusion. I suspect it could be multifocal pneumonia; however, the film was somewhat poorly penetrated. ASSESSMENT AND PLAN: This is an 82-year-old female that was brought from the senior care with chest pain as well as abdominal pain and back pain. 1. The chest pain, I suspect, is likely due to pulmonary infection. She is coughing up thick green, yellow sputum. X-ray findings could either represent pleural fluid or possible infectious infiltrat e. Her symptoms have been going on for months and I suspect this is likely due to pneumonia. She co uld also have some superimposed congestive heart failure on top of this as her proBNP is twice normal and she has an elevated troponin, but it is actually lower than what it has been in the past. There fore, with regards to the pneumonia, she will be placed on broad-spectrum antibiotics. Unfortunately , she is allergic to PENICILLIN. We will start with Levaquin and Flagyl for now pending the culture results. 2. Back and abdominal pain. These are coinciding with the decubitus ulcers and these have been cult ured here in the ER. We will await culture results. We will get a wound care consultation and also nutrition consultation given her severely low albumin, as well as symptom relief for pain control. 3. For atrial fibrillation, we will continue her home medications. She apparently is on Coumadin. She has an elevated INR 3.8. We will hold the Coumadin for tonight. Follow the PT/INRs and then res tart this as appropriate. 4. Hypertension. We will go ahead and continue her usual medications for hypertension as well as p. r.n. medication.
[2017-10-06] MEDS ORDERED: HYDROcodone/Acetaminophen 5/325 mg Tablet PO PRN (23:14)
[2017-10-06] MEDS ORDERED: Morphine 4 MG/ML Carpuject SLOW IVP PRN ×2 (23:14)
[2017-10-06] MEDS ORDERED: cloNIDine 0.1 MG TAB PO PRN (23:14)
[2017-10-06] MEDS ORDERED: HYDROcodone/Acetaminophen 10/325 mg Tablet PO PRN (23:14)
[2017-10-06] MEDS ORDERED: hydrALAZINE 20 MG/ML VIAL SLOW IVP PRN (23:14)
[2017-10-06] MEDS ORDERED: metroNIDAZOLE 500 MG in Premix Bag 1 BAG IVPB SCH (23:30)
[2017-10-06] MEDS ORDERED: Docusate 100 MG CAP PO SCH (23:45)
[2017-10-06] MEDS ORDERED: Famotidine 20 MG TAB PO SCH (23:45)
[2017-10-07 00:03] LABS: Troponin I 0.072 ng/mL (< 0.028)
[2017-10-07] MEDS ORDERED: Docusate Sodium 100 MG/10 ML UDCUP PO SCH (01:00)
[2017-10-07 05:26] LABS: #Lymphocytes 1.8 thou/uL (1.20-3.40); #Monocytes 1.2 thou/uL (0.11-0.59); #Neutrophils 7.6 thou/uL (1.40-6.50); %Basophils 0.2 % (0.0-1.0); %Eosinophils 0.4 % (0.0-10.0); %Lymphocytes 16.6 % (21.0-51.0); %Neutrophils 71.8 % (42.0-75.0); Hemoglobin 10.6 g/dL (12.0-16.0); Mean Corpuscular HGB CONC 33.9 g/dL (32.0-36.0); Mean Corpuscular Hemoglobin 35.3 pg (27.0-31.0); Mean Platelet Volume 8.9 fL (7.4-10.4); Platelet Count 459 thou/uL (130-400); RBC Distribution Width 16.4 % (11.5-14.5); Red Blood Cell (RBC) Count 3.01 mill/uL (4.20-5.40); White Blood Cell (WBC) Count 10.6 thou/uL (4.8-10.8)
[2017-10-07 05:32] LABS: Prothrombin Time 41.3 SEC (12.0-14.7)
[2017-10-07 05:47] LABS: Anion Gap 12 mmol/L (10-20); BUN (Urea Nitrogen) 45 mg/dL (9.8-20.1); Calc. Creatinine Clearance 58 mL/min (70-130); Calcium 8.9 mg/dL (7.8-10.44); Carbon Dioxide 20 mmol/L (23-31); Chloride 107 mmol/L (98-107); Estimated GFR-MDRD 66; Potassium 3.2 mmol/L (3.5-5.1); Sodium 136 mmol/L (136-145)
[2017-10-07 06:01] LABS: Glucose 53 mg/dL (83-110)
[2017-10-07] MEDS ORDERED: Dextrose 50% Abboject 50 ML SYRINGE ONE (06:17)
[2017-10-07] MEDS ORDERED: Dextrose 50% Abboject 50 ML SYRINGE SLOW IVP SCH (06:25)
--- NOTE | 2017-10-07 08:00 | PDOC.PN ---
- Subjective Encounter Start Date: 10/07/17 Encounter Start Time: 07:59 Subjective: Seen and examined with no new complaint - Objective Resuscitation Status: Resuscitation Status FULL:Full Resuscitation Vital Signs & Weight: Vital Signs (12 hours) Temp Pulse Resp BP BP Pulse Ox 10/07/17 03:14 97.7 F 73 13 106/56 L 99 10/06/17 22:06 97.5 F L 76 20 139/65 95 Weight Weight 189 lb 1 oz Result Diagrams: 10/07/17 04:50 10/07/17 04:50 Phys Exam - Physical Examination Constitutional: NAD HEENT: PERRLA, moist MMs, sclera anicteric, TM's clear Neck: no nodes, no JVD, supple, full ROM Respiratory: no wheezing, no rales, no rhonchi, clear to auscultation bilateral Cardiovascular: RRR, no significant murmur, no rub Gastrointestinal: no distention, positive bowel sounds Musculoskeletal: no edema Neurological: normal sensation, moves all 4 limbs Deviation from normal: Decubitus ulcers Dx/Plan (1) Pneumonia Code(s): J18.9 - PNEUMONIA, UNSPECIFIED ORGANISM Status: Acute (2) Hypokalemia Code(s): E87.6 - HYPOKALEMIA Status: Acute (3) Hypoglycemia Code(s): E16.2 - HYPOGLYCEMIA, UNSPECIFIED Status: Acute (4) Infected ulcer of skin Code(s): L98.499 - NON-PRESSURE CHRONIC ULCER OF SKIN OF SITES W UNSP SEVERITY; L08.9 - LOCAL INFECTION OF THE SKIN AND SUBCUTANEOUS TISSUE, UNSP Status: Acute Comment: fungal infection. Will need repeat biopsy from abd wall ulcer for fungal culture - once INR improves (5) Afib Code(s): I48.91 - UNSPECIFIED ATRIAL FIBRILLATION Status: Chronic Qualifiers: (6) CKD (chronic kidney disease), stage III Status: Chronic (7) Decubital ulcer Code(s): L89.90 - PRESSURE ULCER OF UNSPECIFIED SITE, UNSPECIFIED STAGE Status : Chronic (8) Functional quadriplegia Code(s): R53.2 - FUNCTIONAL QUADRIPLEGIA Status: Chronic Comment: due to DJD (9) HTN (hypertension) Code(s): I10 - ESSENTIAL (PRIMARY) HYPERTENSION Status: Chronic Qualifiers: Comment: Stable (10) Coagulopathy Status: Acute - Plan plan discussed w/ family, continue antibiotics, PT/OT, director social, respiratory therapy Coumadin still on hold due to supratherapeutic INR -: F/up wound cultures and adjust antibiotics accordingly -: monitor INR and any evidence of bleeding -: Replete potassium and step up calorie intake * .
[2017-10-07] MEDS: metroNIDAZOLE 500 MG in Premix Bag 1 BAG IVPB SCH ×2 (08:48→16:39)
[2017-10-07] MEDS ORDERED: Prevnar 13-Val Conj/PF 0.5 ML SYRINGE IM ONE (09:00)
[2017-10-07] MEDS ORDERED: FLU VACC TS2017-18 (>65YR) 0.5 ML SYRINGE IM ONE (09:00)
[2017-10-07] MEDS: Docusate Sodium 100 MG/10 ML UDCUP PO SCH ×2 (09:00→22:19)
[2017-10-07] MEDS: Amiodarone 200 MG TAB PER TUBE SCH (10:12)
[2017-10-07] MEDS: Pantoprazole 40 MG GRANULES PACKET PER TUBE SCH (10:12)
[2017-10-07] MEDS: Famotidine 20 MG TAB PO SCH ×2 (10:12→22:19)
[2017-10-07] MEDS: Saccharomyces boulardii 250 MG CAP PER TUBE SCH (10:12)
[2017-10-07 13:37] VITALS: BMI 34.5
[2017-10-07] MEDS ORDERED: Ondansetron HCl/PF 4 MG/2 ML Vial SLOW IVP PRN (16:25)
[2017-10-07] MEDS ORDERED: Ondansetron ODT 4 MG TAB PO PRN (16:26)
[2017-10-07] MEDS ORDERED: Morphine 5 MG/ML SYRINGE SLOW IVP PRN (17:53)
[2017-10-07] MEDS ORDERED: Warfarin Sodium 2.5 MG TAB PER TUBE SCH (18:00)
[2017-10-07] MEDS: Lorazepam 2 MG/ML VIAL SLOW IVP PRN (18:18)
[2017-10-07] MEDS: Morphine 5 MG/ML SYRINGE SLOW IVP PRN ×2 (18:20→23:14)
[2017-10-08] MEDS: metroNIDAZOLE 500 MG in Premix Bag 1 BAG IVPB SCH ×4 (00:57→22:06)
[2017-10-08 05:19] LABS: Prothrombin Time 41.1 SEC (12.0-14.7)
[2017-10-08] MEDS: Morphine 5 MG/ML SYRINGE SLOW IVP PRN ×2 (05:24→16:20)
--- NOTE | 2017-10-08 08:03 | PDOC.PN ---
- Subjective Encounter Start Date: 10/08/17 Encounter Start Time: 08:01 Subjective: Seen and examined -codition still remains same - Objective Vital Signs & Weight: Vital Signs (12 hours) Temp Pulse Resp BP Pulse Ox 10/08/17 07:43 97.4 F L 72 18 105/55 L 98 10/08/17 03:15 96.5 F L 71 15 115/55 L 100 10/08/17 00:59 75 116/54 L 10/07/17 20:16 96 F L 83 14 114/58 L 97 10/07/17 20:06 96 F L 83 14 Weight Admit Weight 189 lb 1 oz Weight 190 lb 12.8 oz I&O: 10/07/17 10/08/17 10/09/17 06:59 06:59 06:59 Intake Total 1381 Balance 1381 Result Diagrams: 10/07/17 04:50 10/07/17 04:50 Phys Exam - Physical Examination Constitutional: NAD HEENT: PERRLA, moist MMs, sclera anicteric, TM's clear Neck: no nodes, no JVD, supple, full ROM Respiratory: no wheezing, no rales, no rhonchi, clear to auscultation bilateral Cardiovascular: RRR, no significant murmur, no rub Gastrointestinal: soft, non-tender, no distention, positive bowel sounds Musculoskeletal: no edema, pulses present Deviation from normal: Decubitus ulcers Dx/Plan (1) Pneumonia Code(s): J18.9 - PNEUMONIA, UNSPECIFIED ORGANISM Status: Acute (2) Hypokalemia Code(s): E87.6 - HYPOKALEMIA Status: Acute (3) Hypoglycemia Code(s): E16.2 - HYPOGLYCEMIA, UNSPECIFIED Status: Acute (4) Infected ulcer of skin Code(s): L98.499 - NON-PRESSURE CHRONIC ULCER OF SKIN OF SITES W UNSP SEVERITY; L08.9 - LOCAL INFECTION OF THE SKIN AND SUBCUTANEOUS TISSUE, UNSP Status: Acute Comment: fungal infection. Will need repeat biopsy from abd wall ulcer for fungal culture - once INR improves (5) Afib Code(s): I48.91 - UNSPECIFIED ATRIAL FIBRILLATION Status: Chronic Qualifiers: (6) CKD (chronic kidney disease), stage III Status: Chronic (7) Decubital ulcer Code(s): L89.90 - PRESSURE ULCER OF UNSPECIFIED SITE, UNSPECIFIED STAGE Status : Chronic (8) Functional quadriplegia Code(s): R53.2 - FUNCTIONAL QUADRIPLEGIA Status: Chronic Comment: due to DJD (9) HTN (hypertension) Code(s): I10 - ESSENTIAL (PRIMARY) HYPERTENSION Status: Chronic Qualifiers: Comment: Stable (10) Coagulopathy Status: Acute - Plan plan discussed w/ family, continue antibiotics, PT/OT, social services analyst Appreciate Paliative care team input -: Dispo planning-Back to [facility] * .
[2017-10-08] MEDS: Saccharomyces boulardii 250 MG CAP PER TUBE SCH (08:42)
[2017-10-08] MEDS: Famotidine 20 MG TAB PO SCH ×2 (08:42→21:58)
[2017-10-08] MEDS: Pantoprazole 40 MG GRANULES PACKET PER TUBE SCH (08:42)
[2017-10-08] MEDS: Amiodarone 200 MG TAB PER TUBE SCH (08:42)
[2017-10-08] MEDS: Docusate Sodium 100 MG/10 ML UDCUP PO SCH ×2 (08:44→21:58)
[2017-10-08] MEDS: Lorazepam 2 MG/ML VIAL SLOW IVP PRN (16:22)
[2017-10-09 05:30] LABS: Prothrombin Time 45.1 SEC (12.0-14.7)
[2017-10-09 05:36] LABS: INR-International Normal Ratio 4.5
[2017-10-09] MEDS: metroNIDAZOLE 500 MG in Premix Bag 1 BAG IVPB SCH ×3 (07:41→23:23)
--- NOTE | 2017-10-09 07:46 | PDOC.PN ---
- Subjective Encounter Start Date: 10/09/17 Encounter Start Time: 07:43 Subjective: Seen and examined -no new complaint-paliative care on the case - Objective Vital Signs & Weight: Vital Signs (12 hours) Temp Pulse Resp BP Pulse Ox 10/09/17 07:35 97.3 F L 80 18 116/60 96 10/09/17 03:46 97.6 F 77 18 121/57 L 96 10/08/17 20:00 97.9 F 76 16 112/56 L 99 Weight Admit Weight 189 lb 1 oz Weight 190 lb 12.8 oz I&O: 10/08/17 10/09/17 10/10/17 06:59 06:59 06:59 Intake Total 1381 990 Balance 1381 990 Result Diagrams: 10/07/17 04:50 10/07/17 04:50 Phys Exam - Physical Examination Constitutional: NAD HEENT: PERRLA, moist MMs, sclera anicteric, TM's clear Neck: no nodes, no JVD, supple, full ROM Respiratory: no wheezing, no rales, no rhonchi, clear to auscultation bilateral Cardiovascular: RRR, no significant murmur, no rub Gastrointestinal: soft, non-tender, no distention Musculoskeletal: pulses present Dx/Plan (1) Pneumonia Code(s): J18.9 - PNEUMONIA, UNSPECIFIED ORGANISM Status: Acute (2) Hypokalemia Code(s): E87.6 - HYPOKALEMIA Status: Acute (3) Hypoglycemia Code(s): E16.2 - HYPOGLYCEMIA, UNSPECIFIED Status: Acute (4) Infected ulcer of skin Code(s): L98.499 - NON-PRESSURE CHRONIC ULCER OF SKIN OF SITES W UNSP SEVERITY; L08.9 - LOCAL INFECTION OF THE SKIN AND SUBCUTANEOUS TISSUE, UNSP Status: Acute Comment: fungal infection. Will need repeat biopsy from abd wall ulcer for fungal culture - once INR improves (5) Afib Code(s): I48.91 - UNSPECIFIED ATRIAL FIBRILLATION Status: Chronic Qualifiers: (6) CKD (chronic kidney disease), stage III Status: Chronic (7) Decubital ulcer Code(s): L89.90 - PRESSURE ULCER OF UNSPECIFIED SITE, UNSPECIFIED STAGE Status : Chronic (8) Functional quadriplegia Code(s): R53.2 - FUNCTIONAL QUADRIPLEGIA Status: Chronic Comment: due to DJD (9) HTN (hypertension) Code(s): I10 - ESSENTIAL (PRIMARY) HYPERTENSION Status: Chronic Qualifiers: Comment: Stable (10) Coagulopathy Status: Acute - Plan continue antibiotics, PT/OT, social media marketing specialist, respiratory therapy Daughter discussing with family Re -hospice-going with [facility] -: Consider de-escalating antibiotics and pursue d/c planning * .
[2017-10-09] MEDS: Morphine 5 MG/ML SYRINGE SLOW IVP PRN ×3 (08:01→22:10)
[2017-10-09] MEDS: Saccharomyces boulardii 250 MG CAP PER TUBE SCH (08:02)
[2017-10-09] MEDS: Famotidine 20 MG TAB PO SCH ×2 (08:02→22:10)
[2017-10-09] MEDS: Docusate Sodium 100 MG/10 ML UDCUP PO SCH (08:02)
[2017-10-09] MEDS: Amiodarone 200 MG TAB PER TUBE SCH (08:02)
[2017-10-09] MEDS: Pantoprazole 40 MG GRANULES PACKET PER TUBE SCH (08:02)
[2017-10-09] MEDS: Lorazepam 2 MG/ML VIAL SLOW IVP PRN ×2 (08:02→15:09)
[2017-10-10] MEDS: Docusate Sodium 100 MG/10 ML UDCUP PO SCH ×2 (02:21→08:39)
[2017-10-10 05:16] LABS: Prothrombin Time 42.2 SEC (12.0-14.7)
[2017-10-10 05:54] LABS: INR-International Normal Ratio 4.1
[2017-10-10] MEDS: Morphine 5 MG/ML SYRINGE SLOW IVP PRN ×2 (06:00→10:41)
[2017-10-10] MEDS: metroNIDAZOLE 500 MG in Premix Bag 1 BAG IVPB SCH (08:37)
[2017-10-10] MEDS: Famotidine 20 MG TAB PO SCH (08:39)
[2017-10-10] MEDS: Amiodarone 200 MG TAB PER TUBE SCH (08:39)
[2017-10-10] MEDS: Saccharomyces boulardii 250 MG CAP PER TUBE SCH (08:39)
[2017-10-10] MEDS: Pantoprazole 40 MG GRANULES PACKET PER TUBE SCH (08:39)
--- NOTE | 2017-10-10 08:45 | PDOC.PN ---
- Subjective Encounter Start Date: 10/10/17 Encounter Start Time: 10:00 Subjective: Patient with continued complaint of pain from ulcers. No changes. -: Family discussing with hospice. - Objective MAR Reviewed: Yes Vital Signs & Weight: Vital Signs (12 hours) Temp Pulse Resp BP Pulse Ox 10/10/17 07:38 96.9 F L 72 18 121/58 L 95 10/10/17 04:00 98.7 F 78 20 114/62 95 10/10/17 00:00 78 18 118/56 L 99 Weight Admit Weight 189 lb 1 oz Weight 190 lb 12.8 oz I&O: 10/09/17 10/10/17 10/11/17 06:59 06:59 06:59 Intake Total 2018 1130 Balance 2018 1130 Result Diagrams: 10/07/17 04:50 10/07/17 04:50 Phys Exam - Physical Examination Obese HEENT: moist MMs Respiratory: no wheezing, no rales, no rhonchi Cardiovascular: RRR Gastrointestinal: soft, positive bowel sounds Neurological: non-focal Deviation from normal: dementia Deviation from normal: multiple stage 3 pressure ulcers, dressings in place, pain with any turning Dx/Plan (1) Pneumonia Code(s): J18.9 - PNEUMONIA, UNSPECIFIED ORGANISM Status: Acute (2) Decubital ulcer Code(s): L89.90 - PRESSURE ULCER OF UNSPECIFIED SITE, UNSPECIFIED STAGE Status : Chronic Qualifiers: Pressure ulcer location: back, unspecified location Pressure ulcer stage: stage 3 Qualified Code(s): L89.103 - Pressure ulcer of unspecified part of back, stage 3 Comment: Multiple all over body (3) Hypoglycemia Code(s): E16.2 - HYPOGLYCEMIA, UNSPECIFIED Status: Acute (4) Hypokalemia Code(s): E87.6 - HYPOKALEMIA Status: Acute - Plan cont current plan of care Plan to d/c to [facility] hospice once arranged and family has -: made final decision. Continue abx for now until final decision made. * . - Discharge Day Encounter end time: 10:20
[2017-10-10 11:23] VITALS: BP 101/52; TEMP 98.5
--- NOTE | 2017-10-10 11:24 | PQF ---
DATE: 10-10-17 ATTN: DR. NICOLLE MYERS Please exercise your independent, professional judgment in responding to the clarification form. Clinical indicators are provided on the bottom of this form for your review Please check appropriate box(s): [ X ] Aspiration Pneumonia [ ] Empirically treating Gram Negative Pneumonia [ ] Other diagnosis [ ] Unable to determine In addition, please specify: Present on Admission (POA): [ ] Yes [ ] No [ ] Unable to determine For continuity of documentation, please document condition throughout progress notes and discharge summary. Thank You. CLINICAL INDICATORS - SIGNS / SYMPTOMS / LABS ER DOCUMENTATION: COMPLAINT: CHEST PAIN, PT ALSO REPORTS PRODUCTIVE COUGH WBC: 10-06-17: 12.5 H&P: SHE DOES COMPLAIN OF SOME SOB, PNEUMONIA ANTIBIOTICS (10-07-17) FLAGYL, LEVAQUIN RISK FACTORS: H&P: HX OF SEVERE OSTEOARTHRITIS WHICH HAS LED TO HER BEING CHRONICALLY BEDRIDDEN H&P: PEG TUBE TREATMENTS: ANTIBIOTICS (10-07-17) FLAGYL, LEVAQUIN (This form is maintained as a part of the permanent medical record) 2014 [employer]. All Rights Reserved [email or web address] Office: [phone] [facility] [facility] CENTERAlbin
--- NOTE | 2017-10-11 15:09 | DIS ---
PRIMARY CARE PHYSICIAN: Benny Lino M.D. DIAGNOSES ON ADMISSION: 1. Chest pain. 2. Back and abdominal pain. 3. Multiple decubitus ulcers. 4. Atrial fibrillation. 5. Hypertension. DIAGNOSES ON DISCHARGE: 1. Pneumonia, presumed aspiration. 2. Multiple stage 3 decubitus ulcers. 3. Atrial fibrillation. 4. Hypertension. PROCEDURES: None. CONSULTATIONS: None SUMMARY OF HOSPITAL COURSE: This is an 82-year-old -[place] female, morbidly obese with adina ntia, who is bedridden, covered in bed sores, resides in [facility]. She came in with a complaint of stomach and chest hurting. She also had a productive cough over the last 2 months produ ctive of thick yellow-green sputum without fever. The patient was found to have mild leukocytosis in the emergency room along with some mild bibasilar opacities concerning for pneumonia, possibly aspir ation pneumonia because she also has PEG tube and gastroesophageal reflux disease. The patient was p ut in the hospital, put on IV antibiotics. She was found to have multiple stage 3 bedsores with [facility] care treating them. These were incredibly painful for any sort of treatment and the patient contin ually refused to have to be turned or to have these debrided due to her malnutrition and progressive debilitation leading to the longstanding nonhealing of these ulcers. Palliative Care was consulted. They did discuss with the family about the patient's trajectory of disease, pain management, quality of life, and the family determined to bring her back to [facility] under hospice care. She is discharged back on 10/10/2017. DISCHARGE MANAGEMENT: Discharge back to [facility] under hospice care. DISCHARGE MEDICATIONS: Resume all previous medications: 1. Acetaminophen as needed. 2. Acetaminophen with codeine as needed. 3. Albuterol inhaler as needed. 4. Maalox as needed. 5. Amiodarone 200 mg per tube daily. 6. Milk of Magnesia as needed. 7. Multivitamin with minerals daily. 8. Zofran as needed. 9. Protonix 40 mg per tube daily. 10. Florastor 250 mg per tube daily. 11. Senokot as needed. 12. Warfarin 2.5 mg per tube Tuesday, Tuesday, and Tuesday. FOLLOWUP: Follow up with hospice doctor at the skilled nursing. ACTIVITY: As tolerated. DIET: Continue tube feeding diet. Wound care as tolerated.
== END 2017-10-10 13:57 | disposition hospice, inpatient (51) | DRG 177 ==
LOC: ERS 15:28 → 2NO 18:46 → OBSVTOIN 23:14
PROVIDERS: ADMIT Internal Medicine; ATTEND Internal Medicine
DX: J69.0 Pneumonitis due to inhalation of food and vomit (principal); E43 Unspecified severe protein-calorie malnutrition; L89.103 Pressure ulcer of unspecified part of back, stage 3; R53.2 Functional quadriplegia; I48.2 Chronic atrial fibrillation; L89.893 Pressure ulcer of other site, stage 3; E88.09 Other disorders of plasma-protein metabolism, not elsewhere classified; I13.0 Hypertensive heart and chronic kidney disease with heart failure and stage 1 through stage 4 chronic kidney disease, or unspecified chronic kidney disease; Z93.1 Gastrostomy status; Z23 Encounter for immunization; K21.9 Gastro-esophageal reflux disease without esophagitis; Z68.34 Body mass index [BMI] 34.0-34.9, adult; Z51.5 Encounter for palliative care; Z79.01 Long term (current) use of anticoagulants; E87.6 Hypokalemia; E16.2 Hypoglycemia, unspecified; N18.3 Chronic kidney disease, stage 3 (moderate); M19.90 Unspecified osteoarthritis, unspecified site; L98.499 Non-pressure chronic ulcer of skin of other sites with unspecified severity; L08.9 Local infection of the skin and subcutaneous tissue, unspecified; T45.515A Adverse effect of anticoagulants, initial encounter; Z74.01 Bed confinement status
CPT/HCPCS: 36415; 51701; 71045; 80048; 80053; 81003; 81015; 82550; 82553; 83690; 83880; 84484; 85025; 85610; 85730; 87070; 87077; 87186; 87205; 88305; 88312; 90471; 90670; 93005; J2270; A4216; A4353; G0009; J0360; J1956; J2060; J2405